=== PATIENT | female | born 1945 | race Caucasian/White ===

== ENCOUNTER 2016-04-27 14:59 | Inpatient (IN) | payer MEDICARE, OTHER ==
[~2016-04-27] VITALS: Ht 170.2 cm; Wt 81.9 kg
[~2016-04-27 14:59] MED LIST: AMLO5TAB2 PO; LIT450 PO; OMEP40CA36 PO; QUET100T69 PO
[2016-04-27 15:26] VITALS: BP 171/82; PULSE 90; RESP 16; O2SAT 97
[2016-04-27 15:55] LABS: BASOPHILS % (AUTO) 0.3 % (0-3); EOSINOPHILS % (AUTO) 1.3 % (0-5); MONOCYTES % (AUTO) 7.6 % (4-12); Mean Corpuscular Hemoglobin 30.6 pg (27.0-35.0); Mean Corpuscular Volume 97.1 fL (81-100); NEUTROPHILS % (AUTO) 72.2 % (40-74); Platelet Count 250 bil/L (150-400)
--- NOTE | 2016-04-27 16:19 | ED.REPORT ---
HPI-Psychiatric Illness Date of Service Apr 27, 2016 ED Provider: Dl Hines MD History of Present Illness: Chart says here for carlton A 71 year old female with a medical history including hypertension, asthma, GERD , bipolar disorder, anxiety, depression, and tardive dyskinesia s/p multiple psychiatric admits presents to the ED accompanied by her with carlton onset four days ago. The patient began speaking to herself and speaking to other people who were not present. These symptoms have worsened since onset. The patient's denies suicide attempts, self-harm, or insomnia, although he is unsure if the patient slept last night. The patient was in the hospital two months ago with similar symptoms. She was placed on Seroquel (150mg) and Belwood, with relief of symptoms until now. Nursing Notes Stated Complaint: STRANGE BEHAVIOR,POSSIBLE UTI Chief Complaint: Psychiatric Complaint Nursing Notes Reviewed: Yes (Cinematique reconciled) Allergies: Coded Allergies: chlorpromazine (Verified Allergy, Severe, 02/07/16) codeine (Verified Allergy, Severe, 02/07/16) olanzapine (Verified Allergy, Severe, 02/07/16) sulindac (Verified Allergy, Severe, Rash, 02/07/16) Scheduled Amlodipine (Amlodipine) 5 Mg Tablet 2.5 MG PO DAILY Belwood Carbonate (Belwood Carbonate XR) 450 Mg Tablet.er 450 MG PO HS Omeprazole (Omeprazole) 40 Mg Capsule.dr 40 MG PO QAM Quetiapine Fumarate (Quetiapine Fumarate) 100 Mg Tablet 150 MG PO HS General Time Seen by MD: 16:12 Chief Complaint Manic Hx Obtained From: Spouse Unable to Obtain Hx: Patient condition, Mental status Arrived By: Walk-in Onset Occurred: 4 days ago Symptom Duration: Since onset Progression Since Onset: Gradually worsening Associated with: Denies: Fever, Illicit drug use Pertinent Negative: Relieved by nothing Related History: Reports: Anxiety, Bipolar disorder, Depression, Prior suicide attempt(s) Immunizations: Tetanus up to date Recent Healthcare: No recent doctor visit Similar Sx Previous: Yes Risk-Psychiatric Illness Suicide Risk Stratification RF Statements: Risk factors reviewed Past Medical History Past Medical History Notes: last Admit 01/2016 for [facility] on SHAYAN Past Medical History Bipolar disorder - on Belwood Anxiety Depression Arthritis Tardive dyskinesia. Previous suicide attempts by overdose Reports: Asthma, GERD, Hypertension Past Surgical History Reports: Appendectomy Family History STORY: She reports family psychiatric history of mother with depression who also possibly suicided. No family history of substance abuse or dependence. Family medical history significant for father with stroke and sister with Alzheimer's. Smoking History Never Smoker Social History Alcohol Use: Denies alcohol use Drug Use: Denies drug use Other Social History: Good social support, , Local resident Ambulatory Status Independent Review of Systems Unable to Obtain ROS Patient condition, Uncooperative, Mental status Physical Exam Physical Exam Notes: Initial Vital Signs Vital Signs (First) Date Time Temp Pulse Resp B/P Pulse Ox O2 Delivery O2 Flow Rate FiO2 04/27/16 15:26 36.3 90 16 171/82 97 Room Air Initial VS: Reviewed, Vital signs abnormal (HTN) Head / Eyes: Atraumatic, Normocephalic ENT: Conjunctiva normal, No scleral icterus Respiratory: Breath sounds normal, Clear to auscultation, No respiratory distress Cardiovascular: Regular rate & rhythm, Heart sounds normal Skin: Warm, Dry General/Constitutional: Awake Behavior: Positive: Uncooperative Thin Patient is talking to the collado on initial interview She is speaking rapidly but in unintelligible sentences and phrases She resists physical exam Abnormal Thinking / Perception: Positive: Delusions - paranoid, Insight abnormal (None), Judgment abnormal (None ) Wrist / Hand: Neurologic intact, Vascular intact Trauma / Burn / Environmental: Positive: Ecchymosis (Left hand) Interpretation & Diagnostics URINE DRUG SCREEN: Negative Lab Results Interpretation Result Diagram: 04/27/16 1544 04/27/16 1544 Test 04/27/16 15:44 04/27/16 18:26 White Blood Count 11.5th/mm3 (3.8-10.1) Red Blood Count 4.15mil/mm3 (3.90-5.20) Hemoglobin 12.7g/dL (12.0-15.6) Hematocrit 40.3% (35.0-46.0) Mean Corpuscular Volume 97.1fL (81-100) Mean Corpuscular Hemoglobin 30.6pg (27.0-35.0) Mean Corpuscular Hemoglobin Concent 31.5% (32.0-37.0) Red Cell Distribution Width 15.3% (12.3-15.4) Platelet Count 250bil/L (150-400) Neutrophils (%) (Auto) 72.2% (40-74) Lymphocytes (%) (Auto) 18.4% (14-46) Monocytes (%) (Auto) 7.6% (4-12) Eosinophils (%) (Auto) 1.3% (0-5) Basophils (%) (Auto) 0.3% (0-3) Sodium Level 139mEq/L (134-144) Potassium Level 4.3mEq/L (3.5-5.2) Chloride Level 103mEq/L (97-108) Carbon Dioxide Level 17mmol/L (18-29) Blood Urea Nitrogen 29mg/dL (8-27) Creatinine 1.14mg/dL (0.57-1.00) Estimat Glomerular Filtration Rate 67mL/min (>59) Glucose Level 119mg/dL (60-99) Lactic Acid Level 1.5mmol/L (0.4-2.0) Calcium Level 9.5mg/dL (8.5-10.1) Total Bilirubin 0.3mg/dL (0.0-1.2) Aspartate Amino Transf (AST/SGOT) 19U/L (0-50) Alanine Aminotransferase (ALT/SGPT) 13U/L (0-32) Alkaline Phosphatase 82U/L (25-165) Total Protein 8.0g/dL (6.4-8.4) Albumin 4.8g/dL (3.4-5.0) Thyroid Stimulating Hormone (TSH) 3.090uIU/mL (0.450-4.500) Hold Yen Top Tube Received (Received) Belwood Level 0.8mEq/L (0.5-1.5) Alcohol, Quantitative < 10mg/dL (0-10) Urine Color Yellow (YELLOW) Urine Appearance Hazy (CLEAR,HAZY) Urine pH 1.010 (5.0-8.0) Urine Specific [place] 6.0 (1.003-1.035) Urine Protein Negativemg/dL (NEG,TRACE) Urine Glucose (UA) Negativemg/dL (NEGATIVE) Urine Ketones Tracemg/dL (NEGATIVE) Urine Occult Blood Trace (NEGATIVE) Urine Nitrite Negative (NEGATIVE) Urine Bilirubin Negative (NEGATIVE) Urine Urobilinogen Normalmg/dL (NORMAL) Urine Leukocyte Esterase Large (NEGATIVE) Urine RBC 0-2/hpf (0-2) Urine WBC >50/hpf (0-5) Urine Epithelial Cells Few/hpf (NONE-MOD) Urine Crystals None seen (NONE SEEN) Urine Bacteria Many/hpf (NONE-FEW) Urine Hyaline Casts None/lpf (NONE) Urine Granular Casts None seen (NONE SEEN) Urine Waxy Casts None seen (NONE SEEN) Urine Red Blood Cell Casts None seen (NONE SEEN) Urine White Blood Cell Casts None seen (NONE SEEN) Urine Mucus None seen (None Seen) Urine Trichomonas None seen (NONE SEEN) Urine Yeast None (NONE SEEN) Urinalysis Comment None Urine Culture Reflexed Indicated Lab Results Interpretation: CBC positive leukocytosis CMP mildly low CO2 UA positive for markers of infection, culture pending Belwood normal Re-Eval/Medical Decision Med Decision/Clinical Course This is a 71-year-old female presents to the emergency department brought by and the with a complaint of me. Patient's long history of bipolar illness with multiple psychiatric hospitalizations, most recently in January where she was discharged on lithium and Seroquel. According to the should be doing well until about 4 days ago she started speaking to herself, then developed increasing racing thoughts, then insomnia woke up this morning to find all the lights were on it appeared she had slept at all last night, she was making these sense, had rapid continuous speech and appeared manic. He states is the same symptoms and presentation she has had with each of her episodes of carlton. He tried to convince her to come to the department she refused, he tried calling her psychiatrist to try to convince the patient is unsuccessful, and he ultimately had a call the 's office for assistance in getting to the emergency department. The patient refuses to cooperate, she talks to the wall prep prior speech and appears gravely disabled overall. She has no visible signs of trauma service and bruising to the left hand, she has no other findings. She is not febrile, she does not appear toxic, she is energetic, rapid, pressured speech. She has no insight, no judgment, but will not answer questions about suicidality homicidality-all the indicates that several really been an issue. Workup was notable for UTI, the patient did receive an IM dose of ceftriaxone - the patient does not have findings clinically of the UTI, all of her symptoms and finding strongly argue that the fundamental issue remains bipolar carlton. indicates that he has her medications locked up and help dispense his she has reportedly been compliant. Belwood level demonstrates no toxicity. The patient was able to eat and drink, but not cooperating Deann anyway. I tried giving an oral antibiotic-she refused to received an IM dose of ceftriaxone. I am not finding indication the patient is medical hospitalization and no evidence of clinical sepsis. Patient's been seen by the DCR is being dettained (SHAYAN'd) for grave disability. In the patient's recently been admitted to the [facility], patient's no other major medical issues, again while there is a UTI, there are not findings indicate dale sepsis or if that is truly the precipitating cause. The patient' s are received parenteral dose of antibiotics here, but normally be a candidate for oral antibiotics if she would cooperate. The fundamental issue presenting today is the carlton, her presentation is identical to previous episodes of carlton. Therefore, although she is 71-she is a reasonable candidate for admission to the [facility] in this setting. Moreover, I think the patient is best served in the [facility] setting this type of presentation, red and attempted management on the floor for primary psychiatric, with an incidental UTI) I attempted to give the patient's evening dose of lithium and Seroquel, but again the patient was not cooperative - after consultation with pharmacy given the patient's reported allergy to olanzapine, the patient received a dose of Geodon which records indicate has beem tolerated previously. I do recommend a single dose of ceftriaxone IM once a day for the next 2 days to complete treatment for this urinary tract infection,(or if the patient improves and cooperates with oral medications a 5 day course of trimethoprim sulfa twice a day could also be used Source of Hx: Old records Re-Evaluation/Progress : Time of Eval: 16:49 Patient Status: Condition unchanged Re-Evaluation/Progress Note: Discussed with patient's lab results, diagnosis, and plan for admit. Patient's agrees with plan for care and all questions were addressed. Consultation : Referral / Consult Name: Nicky Mays MOUNA Consulted With: Hospitalist Public Interviewer: Agrees with eval, Agrees with plan, Accepts admit Note: DCR arranged admission. Differential Diagnosis: Positive: Mood disorder, Negative: Alcohol abuse, Homicidal, Polysubstance abuse, Schizophrenia, Substance abuse, Suicidal Counseled Regarding: Diagnosis, Lab results, Need for admission Discharge & Departure Impression: Primary Impression: Bipolar disorder Active/Remission status: currently active Current bipolar episode type: manic Current episode severity: severe Psychotic features: with psychotic features Qualified Code: F31.2 - Bipolar disorder, current episode manic severe with psychotic features Additional Impressions: Psychosis Psychosis type: unspecified psychosis type Qualified Code: F29 - Unspecified psychosis not due to a substance or known physiological condition UTI (urinary tract infection) Urinary tract infection type: acute cystitis Hematuria presence: without hematuria Qualified Code: N30.00 - Acute cystitis without hematuria Disposition: ADMITTED TO HOSPITAL Discharge Condition All VS Reviewed: Yes Condition: Improved Referrals: Jose Antonio Peñaloza MD (PCP) Oj Vasquez MD (Family) Lucie Attestation Portions of this note were transcribed by Charley Lu. I, Dr. Hines, personally performed the history, physical exam, and medical decision-making; I reviewed and confirmed the accuracy of the information in the transcribed note. Signed by: Lucie Balbuena, 04/27/2016, 23:50 copies to: Jose Antonio Peñaloza MD; Oj Vasquez MD, Matthew F MD Apr 27, 2016 16:19 CHARLEY LU Apr 27, 2016 16:48
[2016-04-27 18:49] LABS: APPEARANCE,URINE HAZY (CLEAR,HAZY); COLOR,URINE YELLOW (YELLOW); OCCULT BLOOD,URINE TRACE (NEGATIVE); UROBILINOGEN,URINE NORMAL (NORMAL)
[2016-04-27 19:05] VITALS: BP 177/92; PULSE 88; O2SAT 99
[2016-04-27] MEDS ORDERED: levoFLOXacin 500 mg Tablet PO ONE (19:15)
[2016-04-27] MEDS ORDERED: levoFLOXacin 250 mg Tablet PO ONE (19:45)
[2016-04-27] MEDS ORDERED: cefTRIAXone Inj 1,000 MG, Lidocaine PF 1% Inj 2.1 ML in Syringe 0 EACH IM ONE (20:10)
[2016-04-27] MEDS ORDERED: Ziprasidone 20 mg/mL Inj IM ONE (22:55)
[2016-04-27 23:32] VITALS: BP 138/66; PULSE 61; O2SAT 98
[2016-04-27 23:36] VITALS: BP 138/66; PULSE 61; RESP 16; O2SAT 98
[2016-04-28] MEDS ORDERED: hydrOXYzine Pamoate 25 mg Capsule PO PRN (02:20)
[2016-04-28] MEDS ORDERED: Alum-Mag Hydrox-Simeth 30 mL Suspension PO PRN (02:20)
[2016-04-28] MEDS ORDERED: Magnesium Hydroxide 10 mL Oral Concentration PO PRN (02:20)
[2016-04-28] MEDS ORDERED: Benzocaine-Menthol Lozenge 2/Pkg PO PRN (02:20)
[2016-04-28] MEDS ORDERED: LORazepam 1 mg Tablet PO PRN (02:20)
[2016-04-28] MEDS ORDERED: cefTRIAXone Inj 1,000 MG, Lidocaine PF 1% Inj 2.1 ML in Syringe 0 EACH IM ONE (15:30)
[2016-04-28] MEDS: Pantoprazole 40 mg ER24 Tablet PO SCH (16:10)
--- NOTE | 2016-04-28 23:39 | HP ---
[address] [address] HISTORY AND PHYSICAL PATIENT: BREANNA CURRAN : 1945 MR#: [id number] ADMIT: 04/28/2016 JOB ID: [id number] IDENTIFYING DATA: The patient is a 71-year-old female with a diagnosis of bipolar disorder who was brought to the emergency department by the pump assembler, accompanied by her , with a history of four days of worsening mental state and apparent manic episode. The patient was subsequently detained by the [facility]. 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...you have the wrong Breanna Curran, I'm Breanna Curran, not Breanna Curran at the [place]." HISTORY OF PRESENT ILLNESS: The patient had been admitted at the [facility] from February 06 through February 21, 2016, and was treated with Eskalith 450 mg at bedtime and quetiapine 150 mg at bedtime with good resolution of symptoms. According to the patient's , she had been doing well until four days ago when she began speaking to herself and developed increasing racing thoughts, and then insomnia, and woke up the morning of admission to find all the lights on and the patient appeared to have not slept all night. At that point, she was making no sense, had rapid pressured speech, and appeared manic. The patient's reported that these symptoms were consistent with her prior episodes of carlton. The patient's had tried to convince her to come to the emergency department, but she refused. He likewise had tried using the psychiatrist, but this was unsuccessful, and he ultimately had to call the [facility]'s office for assistance in getting the patient to the emergency department. When seen in the emergency department, she refused to cooperate, talking to the wall with rapid pressured speech. She was noted to have some bruising of her left hand, but no other findings. The patient did appear to have a UTI, but does not demonstrate clinical symptoms of UTI. She did receive an IM dose of ceftriaxone, but refused oral medication. The patient's has been providing her medication and keeps medication in a lock box. The patient's lithium level was 0.8 on assessment in the emergency department. 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 at [facility], and continued to report that we had the wrong Breanna Curran. She was unsure whether she would cooperate with medication for her urinary tract infection. She was unable to provide any other details outside of noted above. PAST PSYCHIATRIC HISTORY: According to previous chart notes, the patient's first psychiatric treatment was following her second at the age of 21 when she developed her first episode of depression which lasted for approximately one year. She was treated with ECT and had multiple manic or psychotic episodes requiring hospitalization. She reported 30-40 hospitalizations in the past. She did not require rehospitalization for approximately 20 years and her next hospitalization was in 1997. She has historically been stabilized on lithium. She was admitted to [facility] in 2003 and has had multiple inpatient psychiatric hospitalizations since then, and her last hospitalization at [facility] were in October 2015, and as noted above, January 2016. Outpatient she is followed by Dr. Vasquez. She had previously taken risperidone and lithium, but had apparently developed toxicity to risperidone and her tardive dyskinesia was becoming more prominent. Upon switching to quetiapine, her symptoms did eventually marlys and her tardive symptoms appear significantly improved. PAST MEDICATIONS: Have included Lamictal, Zyprexa and Seroquel. FAMILY HISTORY: The patient has a family psychiatric history of a mother with depression and who also possibly suicided. There is no family history of substance use or dependence. Family medical history significant for father with a stroke and a sister with Alzheimer's disease. SUBSTANCE USE HISTORY: The patient reports last alcohol approximately one year ago and she typically drinks a glass of wine, but typically does not use it due to concerns of medication interaction. Her last drink was on her birthday, on April 20, 2017, and had one glass of [place]. She denied the use of amphetamines, cocaine, heroin, hallucinogens, inhalants or IV drug abuse. She denies any history of inpatient or outpatient drug and alcohol treatment. SOCIAL HISTORY: The patient was born in [place]. She has one younger sister and two older sisters. Her oldest sister is . She is a high school graduate and went to [employer] and has a diploma in nursing. 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 She reports having founded the [employer] through [facility]. The patient has never been in the . She is currently and has been for 52 years, and has two children age 49 and 47. She currently receives SSI of 1043 dollars per month. She lives in a home with her in [place]. She reports her and sons are her primary supports. She denies a history of physical, sexual or emotional abuse. She denies any legal history. PAST MEDICAL HISTORY: Significant for arthritis, tardive dyskinesia, asthma, GERD, hypertension. The patient denies a history of traumatic brain injury or seizure. There is also a history of appendectomy. ALLERGIES: 1. The patient reports CODEINE allergy with itching. She also has: 2. CHLORPROMAZINE. 3. OLANZAPINE. 4. SULINDAC. Listed as allergies. PHYSICAL EXAMINATION: Remarkable for bruising as noted above. Blood pressure 171/82, pulse 90, respiratory rate of 16, temperature 36.8, pulse oximetry 97%. She was noted to be speaking to the collado. LABORATORY STUDIES: Within normal limits except for a CBC with a white blood cell count of 11.5 and an MCHC of 31.5. Chemistry panel within normal limits except for carbon dioxide of 17, BUN of 29, creatinine 1.14, and glucose 119. TSH 3.09. Happy level 0.8 at 3:44 and alcohol less than 10. Urine was significant for a large amount of leukocyte esterase, 0-2 RBCs, greater than 50 white blood cells, few epithelial cells, many urine bacteria, with culture indicated. MENTAL STATUS EXAMINATION: Appearance: The patient is adequately dressed and groomed, although she is wearing an outdoor coat while indoors. Behavior: The patient appears somewhat confused, but does go to the interview room and demonstrates good eye contact without significant psychomotor agitation or retardation. Mood is "I don't belong here." Affect is flat. Speech: Soft, somewhat monotone with repetitive answers, and overall poverty of speech. Some latency is noted. Content of thought: She denies suicidal or homicidal ideation. She denies auditory or visual hallucinations. Thought processes: Demonstrates poverty of speech with apparent thought blocking. Insight: Poor. Judgment: Poor. Memory: Unable to assess due to cognitive impairments and perseveration. Concentration: Unable to assess as noted above. The patient was oriented to April 29, 2016, Wednesday. The patient reported that this was Harjinder Miller and that she had been in the hospital approximately a week. She adds "[facility] Sensorium: The patient appears to have cognitive impairment possibly secondary to urinary tract infection. IMPRESSION: The patient is a 71-year-old female who has been medication adherent, but has developed altered mental status over the last few days. The urinalysis is significant for urinary tract infection which could explain the patient's abnormal mental status. The patient also could have a progressing neurocognitive disorder. Given the patient's family history of Alzheimer's disease, when she is more stable a further mental status examination should be accomplished. PROVISIONAL DIAGNOSES: AXIS I: 1. Bipolar disorder, current episode, mixed with psychotic features. 2. Major neurocognitive disorder, unspecified, with dementia versus pseudodementia. AXIS II: Deferred. AXIS III: See past medical history with current urinary tract infection. AXIS IV: Unknown. AXIS V: Global Assessment of Functioning 20. PLAN: The patient will be restarted on lithium/Eskalith 450 mg at bedtime and quetiapine 150 mg at bedtime. She will also receive Rocephin 1000 mg IM x1 now and an additional dose tomorrow, unless she is cooperative, and then a five course of Bactrim and sulfa will be initiated. The patient also receives lorazepam as needed for anxiety and zolpidem for insomnia. The patient is currently denying suicidality or homicidality and does not appear to need a one-to-one. The treatment team will see her on a daily basis to assess for symptoms, side effects and response to treatment. It is unclear whether she will need an additional 10-14 days of treatment as previous, and this will be assessed over time. OLEG
[2016-04-29] MEDS: Pantoprazole 40 mg ER24 Tablet PO SCH (07:31)
[2016-04-29 08:40] LABS: BASOPHILS % (AUTO) 0.4 % (0-3); EOSINOPHILS % (AUTO) 1.9 % (0-5); MONOCYTES % (AUTO) 10.1 % (4-12); Mean Corpuscular Hemoglobin 30.5 pg (27.0-35.0); Mean Corpuscular Volume 97.7 fL (81-100); NEUTROPHILS % (AUTO) 63.7 % (40-74); Platelet Count 225 bil/L (150-400)
[2016-04-29 10:39] VITALS: BP 153/82; PULSE 90; RESP 16
[2016-04-29] MEDS ORDERED: cefTRIAXone Inj 1,000 MG, Lidocaine PF 1% Inj 2.1 ML in Syringe 0 EACH IM ONE (16:00)
--- NOTE | 2016-04-29 17:16 | PCM.PNPSY ---
Subjective Date of Service Apr 29, 2016 Subjective The patient was very angry and irritable this morning and was fixated on relatives who worked for the [employer] department. She would not engage with the health informatics advisor assigned to her and stated that she was not her health informatics advisor. The patient would only answer questions in a limited fashion from this publications writer. She reported having a tremor but no other side effects. [place] level was 0.7 today. Efforts at trying to explain the role of urinary tract infection and need for treatment were fruitless. Sleep: 8 hours Appetite: Good Suicidal and homicidal ideation: Denies Auditory hallucinations/Visual hallucinations: Denies Other Psychotic Symptoms: Disorganized and delusional. Anxiety/Depression: Unable to assess. Current Medications Current Medications Acetaminophen 650 mg 650 mg Q4H PRN PO Last administered on 04/28/16 21:04; Admin Dose 650 MG; Start 04/28/16 at 02:20 Amlodipine Besylate 2.5 mg DAILY PO Last administered on 04/29/16 08:08; Admin Dose 2.5 MG; Start 04/28/16 at 15:00 Ceftriaxone Sodium/Lidocaine HCl/Syringe 2.1 ml @ 126 mls/hr ONCE ONCE IM Last administered on 04/27/16 20:42; Admin Dose 126 MLS/HR; Start 04/27/16 at 20: 10; Stop 04/27/16 at 20:11; Status DC Ceftriaxone Sodium/Lidocaine HCl/Syringe 2.1 ml @ 126 mls/hr ONCE ONCE IM Last administered on 04/28/16 16:16; Admin Dose 126 MLS/HR; Start 04/28/16 at 15: 30; Stop 04/28/16 at 15:31; Status DC [place] Carbonate 450 mg HS PO Last administered on 04/28/16 21:01; Admin Dose 450 MG; Start 04/28/16 at 21:00 Pantoprazole 40 mg 0630 PO Last administered on 04/29/16 07:31; Admin Dose 40 MG ; Start 04/28/16 at 15:30 Quetiapine Fumarate 150 mg HS PO Last administered on 04/28/16 21:02; Admin Dose 150 MG; Start 04/28/16 at 21:00 Ziprasidone 10 mg ONCE ONCE IM Last administered on 04/27/16 22:10; Admin Dose 10 MG; Start 04/27/16 at 22:55; Stop 04/27/16 at 22:56; Status DC Mental Status Exam Vital Signs Vital Signs Date Time Temp Pulse Resp B/P Pulse Ox O2 Delivery O2 Flow Rate FiO2 04/29/16 10:39 36.7 90 16 153/82 Appearance: Unkept Attitude: Uncooperative, Hostile/Threatening Behavior: Distractible Affect: Labile Mood: Irritable Thought Process/Associations: Tangential, Circumstantial Speech Production: Abundant Speech Rate: Pressured Speech Articulation: Normal Thought Content: Somatic preoccupation, Suspicious, Perseveration Danger to Self/Suicidal Ideati: None Danger to Others: None Delusions: Paranoid (Endorses) Hallucinations: Auditory (Denies), Visual (Denies) Consciousness: Alert Orientation: Person, Place Memory: Untestable Estimate Intellectual Function: Unable to assess Attention/Concentration & Cogn: Unable to assess Insight: None Judgement: Poor Result Diagram: 04/29/16 0836 04/29/16 0836 Mental Health Plan The patient is a 71-year-old female who has been medication adherent, but has developed altered mental status over the last few days. The urinalysis is significant for urinary tract infection which could explain the patient's abnormal mental status. The patient also could have a progressing neurocognitive disorder. Given the patient's family history of Alzheimer's disease, when she is more stable a further mental status examination should be accomplished. For the time being, she does not appear to be lithium toxic and we will continue with treatment of the presumptive urinary tract infection. [place] AXIS I: 1. Bipolar disorder, current episode, mixed with psychotic features. 2. Major neurocognitive disorder, unspecified, with dementia versus pseudodementia. AXIS II: Deferred. AXIS III: See past medical history with current urinary tract infection. AXIS IV: Unknown. AXIS V: Global Assessment of Functioning 20. Treatments 1. The patient is admitted to the inpatient unit and will be provided a safe and secure environment. 2. The patient is denying current active suicidality and is not in need of a one-to-one at this time. 3. The patient is encouraged to participate with group and milieu activities. 4. The patient will be seen by the treatment team on a daily basis to assess symptoms, side effects and response to treatment. 5. The patient will be continued on lithium/Eskalith 450 mg at bedtime and quetiapine 150 mg at bedtime. 6. Rocephin 1000 mg IM x1 now 7. Lorazepam for anxiety and zolpidem for insomnia. 8. The patient may need an increase in her antipsychotic if her symptoms do not improve. 9. Anticipated length of stay is 7-10 days. Lester Cruz MD Apr 29, 2016 17:16
[2016-04-30] MEDS: Pantoprazole 40 mg ER24 Tablet PO SCH (07:34)
[2016-04-30 09:15] VITALS: BP 146/82; PULSE 72; RESP 17
--- NOTE | 2016-04-30 22:02 | PCM.PNPSY ---
Subjective Date of Service Apr 30, 2016 Subjective The patient remains angry and focused on need for discharge as her family is flying in to [place]. She was again focused on themes of Michael Curran, [facility] [place], her career as a nurse. She angrily terminated the interview stating, "I have eyeballs! I am a Religious!" Sleep: 4 hours Appetite: good Suicidal and homicidal ideation: denies Auditory hallucinations: none reported Visual hallucinations: none reported Other Psychotic Symptoms: delusions as above Anxiety: unable to assess Depression: unable to assess Current Medications Current Medications Ceftriaxone Sodium/Lidocaine HCl/Syringe 2.1 ml @ 126 mls/hr ONCE ONCE IM Last administered on 04/29/16 21:10; Admin Dose 126 MLS/HR; Start 04/29/16 at 16: 00; Stop 04/29/16 at 16:01; Status DC Hydroxyzine Pamoate 50 mg STK-MED ONCE .ROUTE Last administered on 04/29/16 22: 04; Admin Dose 50 MG; Start 04/29/16 at 21:56; Stop 04/29/16 at 21:57; Status DC Hydroxyzine Pamoate 50 mg TID PRN PO Last administered on 04/30/16 09:46; Admin Dose 50 MG; Start 04/29/16 at 22:35 [place] Carbonate 450 mg HS PO Last administered on 04/29/16 21:10; Admin Dose 450 MG; Start 04/28/16 at 21:00 Quetiapine Fumarate 50 mg STK-MED ONCE .ROUTE Last administered on 04/29/16 22: 07; Admin Dose 50 MG; Start 04/29/16 at 22:03; Stop 04/29/16 at 22:04; Status DC Quetiapine Fumarate 50 mg TID PRN PO Last administered on 04/30/16 09:47; Admin Dose 50 MG; Start 04/29/16 at 22:35 Quetiapine Fumarate 150 mg 150 mg HS PO Last administered on 04/29/16 21:10; Admin Dose 150 MG; Start 04/28/16 at 21:00; Stop 04/30/16 at 18:03; Status DC Mental Status Exam Appearance: Unkept Attitude: Uncooperative, Hostile/Threatening Behavior: Distractible Affect: Labile Mood: Irritable Thought Process/Associations: Tangential, Circumstantial Speech Production: Abundant Speech Rate: Pressured Speech Articulation: Normal Thought Content: Somatic preoccupation, Suspicious, Perseveration Danger to Self/Suicidal Ideati: None Danger to Others: None Delusions: Paranoid (Endorses) Consciousness: Alert Orientation: Person, Place Memory: Untestable Estimate Intellectual Function: Unable to assess Attention/Concentration & Cogn: Unable to assess Insight: None Judgement: Poor Result Diagram: 04/29/1636 04/29/16835 Mental Health Plan The patient is a 71-year-old female who has been medication adherent, but has developed altered mental status over the last few days. The urinalysis is significant for urinary tract infection which could explain the patient's abnormal mental status. The patient also could have a progressing neurocognitive disorder. Given the patient's family history of Alzheimer's disease, when she is more stable a further mental status examination should be accomplished. For the time being, she does not appear to be lithium toxic. She has completed treatment of the presumptive urinary tract infection and remains psychotic. [place] AXIS I: 1. Bipolar disorder, current episode, mixed with psychotic features. 2. Major neurocognitive disorder, unspecified, with dementia versus pseudodementia. AXIS II: Deferred. AXIS III: See past medical history with current urinary tract infection. AXIS IV: Unknown. AXIS V: Global Assessment of Functioning 20. Treatments 1. The patient is admitted to the inpatient unit and will be provided a safe and secure environment. 2. The patient is denying current active suicidality and is not in need of a one-to-one at this time. 3. The patient is encouraged to participate with group and milieu activities. 4. The patient will be seen by the treatment team on a daily basis to assess symptoms, side effects and response to treatment. 5. The patient will be continued on lithium/Eskalith 450 mg at bedtime. 6. Increase quetiapine to 200mg at bedtime and 100mg daily due to persistent psychosis. 7. Lorazepam for anxiety and zolpidem for insomnia. 8. Anticipated length of stay is 10-14 days. Lester Cruz MD Apr 30, 2016 19:25
[2016-05-01] MEDS: Pantoprazole 40 mg ER24 Tablet PO SCH (07:58)
[2016-05-01 10:22] VITALS: BP 146/77; PULSE 70; RESP 16
--- NOTE | 2016-05-01 15:15 | PCM.PNPSY ---
Subjective Date of Service May 01, 2016 Subjective The patient declined medications this morning she had court. Her presentation today is nearly identical to yesterday but she seems less angry and anxious. The patient remains angry and focused on need for discharge as her family is flying in to [place] [employer]. She was again focused on themes of Michael Curran, [employer] her career as a nurse. She reported that her can be reached at [phone]. Sleep: 7 hours Appetite: good Suicidal and homicidal ideation: denies Auditory hallucinations: none reported Visual hallucinations: none reported Other Psychotic Symptoms: delusions as above Anxiety: unable to assess Depression: unable to assess Current Medications Current Medications Ceftriaxone Sodium/Lidocaine HCl/Syringe 2.1 ml @ 126 mls/hr ONCE ONCE IM Last administered on 04/29/16 21:10; Admin Dose 126 MLS/HR; Start 04/29/16 at 16: 00; Stop 04/29/16 at 16:01; Status DC Hydroxyzine Pamoate 50 mg STK-MED ONCE .ROUTE Last administered on 04/29/16 22: 04; Admin Dose 50 MG; Start 04/29/16 at 21:56; Stop 04/29/16 at 21:57; Status DC Hydroxyzine Pamoate 50 mg TID PRN PO Last administered on 04/30/16 09:46; Admin Dose 50 MG; Start 04/29/16 at 22:35 Quetiapine Fumarate 50 mg STK-MED ONCE .ROUTE Last administered on 04/29/16 22: 07; Admin Dose 50 MG; Start 04/29/16 at 22:03; Stop 04/29/16 at 22:04; Status DC Quetiapine Fumarate 50 mg TID PRN PO Last administered on 04/30/16 09:47; Admin Dose 50 MG; Start 04/29/16 at 22:35 Quetiapine Fumarate 100 mg DAILY PO Last administered on 05/01/16 10:46; Admin Dose 100 MG; Start 05/01/16 at 08:30 Quetiapine Fumarate 200 mg HS PO Last administered on 04/30/16 21:05; Admin Dose 200 MG; Start 04/30/16 at 21:00 Mental Status Exam Vital Signs Vital Signs Date Time Temp Pulse Resp B/P Pulse Ox O2 Delivery O2 Flow Rate FiO2 05/01/16 10:22 36.3 70 16 146/77 Appearance: Unkept Attitude: Guarded, Uncooperative Behavior: Distractible Affect: Labile Mood: Irritable Thought Process/Associations: Tangential, Circumstantial Speech Production: Abundant Speech Rate: Pressured Speech Articulation: Normal Thought Content: Somatic preoccupation, Suspicious, Perseveration Danger to Self/Suicidal Ideati: None Danger to Others: None Delusions: Paranoid (Endorses) Consciousness: Alert Orientation: Person, Place Memory: Untestable Estimate Intellectual Function: Unable to assess Attention/Concentration & Cogn: Unable to assess Insight: None Judgement: Poor Result Diagram: 04/29/1636 04/29/16835 Mental Health Plan The patient is a 71-year-old female who has been medication adherent, but has developed altered mental status over the last few days. The urinalysis is significant for urinary tract infection which could explain the patient's abnormal mental status. The patient also could have a progressing neurocognitive disorder. Given the patient's family history of Alzheimer's disease, when she is more stable a further mental status examination should be accomplished. For the time being, she does not appear to be lithium toxic. She has completed treatment of the presumptive urinary tract infection and remains psychotic. The patient responded with improved sleep with the increase in quetiapine declined morning dose. [place] AXIS I: 1. Bipolar disorder, current episode, mixed with psychotic features. 2. Major neurocognitive disorder, unspecified, with dementia versus pseudodementia. AXIS II: Deferred. AXIS III: See past medical history with current urinary tract infection. AXIS IV: Unknown. AXIS V: Global Assessment of Functioning 20. Treatments 1. The patient is admitted to the inpatient unit and will be provided a safe and secure environment. 2. The patient is denying current active suicidality and is not in need of a one-to-one at this time. 3. The patient is encouraged to participate with group and milieu activities. 4. The patient will be seen by the treatment team on a daily basis to assess symptoms, side effects and response to treatment. 5. The patient will be continued on lithium/Eskalith 450 mg at bedtime. 6. Increase quetiapine to 200mg at bedtime and 100mg daily due to persistent psychosis. 7. Lorazepam for anxiety and zolpidem for insomnia. 8. Recheck clean-catch UA. 9. Anticipated length of stay is 10-14 days. Lester Curz MD May 01, 2016 15:15
[2016-05-02 00:46] LABS: APPEARANCE,URINE CLEAR (CLEAR,HAZY); COLOR,URINE YELLOW (YELLOW)
[2016-05-02 00:47] LABS: OCCULT BLOOD,URINE TRACE (NEGATIVE)
[2016-05-02 00:48] LABS: UROBILINOGEN,URINE NORMAL (NORMAL)
[2016-05-02] MEDS: Pantoprazole 40 mg ER24 Tablet PO SCH (07:32)
[2016-05-02 08:22] VITALS: BP 141/66; PULSE 89; RESP 16
--- NOTE | 2016-05-02 18:18 | PCM.PNPSY ---
Subjective Date of Service May 02, 2016 Subjective The patient is still fixated on family members returning from the . She was more pleasant today but indicated that she was having direct communication with Dr. Borden in her right ear. She was again focused on themes of [place] Curran [facility], her career as a nurse. She was focused for a significant portion of the interview on her previous cataract surgeries. She stated that Deann, the nurse, helped her with her shower last night. Sleep: 3+ hours Appetite: good Suicidal and homicidal ideation: denies Auditory hallucinations: As above Visual hallucinations: Denied Other Psychotic Symptoms: delusions as above Anxiety: Denies Depression: Denies Current Medications Current Medications Quetiapine Fumarate 100 mg DAILY PO Last administered on 05/02/16 07:32; Admin Dose 100 MG; Start 05/01/16 at 08:30 Quetiapine Fumarate 200 mg HS PO Last administered on 05/01/16 20:32; Admin Dose 200 MG; Start 04/30/16 at 21:00 Mental Status Exam Appearance: Unkept Attitude: Cooperative Behavior: Distractible Affect: Labile Mood: Euphoric Thought Process/Associations: Tangential, Circumstantial Speech Production: Abundant Speech Rate: Pressured Speech Articulation: Normal Thought Content: Somatic preoccupation, Suspicious, Perseveration Danger to Self/Suicidal Ideati: None Danger to Others: None Delusions: Paranoid (Endorses) Consciousness: Alert Orientation: Person, Place Memory: Short Term Memory (Impaired) Estimate Intellectual Function: Average Basis for IQ estimate: Educational history, Employment history Attention/Concentration & Cogn: Impaired Insight: None Judgement: Poor Result Diagram: 04/29/16 0836 04/29/16 0836 Mental Health Plan The patient is a 71-year-old female who has been medication adherent, but has developed altered mental status over the last few days. The urinalysis is significant for urinary tract infection which could explain the patient's abnormal mental status. The patient also could have a progressing neurocognitive disorder. Given the patient's family history of Alzheimer's disease, when she is more stable a further mental status examination should be accomplished. For the time being, she does not appear to be lithium toxic. She has completed treatment of the presumptive urinary tract infection with negative follow-up urinalysis and remains psychotic. The patient is less hostile but still psychotic. She is sleeping poorly. The patient may respond to an increased dose of zolpidem to help normalize sleep. [place] AXIS I: 1. Bipolar disorder, current episode, mixed with psychotic features. 2. Major neurocognitive disorder, unspecified, with dementia versus pseudodementia. AXIS II: Deferred. AXIS III: See past medical history with current urinary tract infection. AXIS IV: Unknown. AXIS V: Global Assessment of Functioning 20. Treatments 1. The patient is admitted to the inpatient unit and will be provided a safe and secure environment. 2. The patient is denying current active suicidality and is not in need of a one-to-one at this time. 3. The patient is encouraged to participate with group and milieu activities. 4. The patient will be seen by the treatment team on a daily basis to assess symptoms, side effects and response to treatment. 5. The patient will be continued on lithium/Eskalith 450 mg at bedtime. 6. Increase quetiapine to 200mg at bedtime and 100mg daily due to persistent psychosis. 7. Lorazepam for anxiety. 8. Increase zolpidem to 10 mg nightly. 9. Anticipated length of stay is 10-14 days. Lester Cruz MD May 02, 2016 18:18
[2016-05-03] MEDS: Pantoprazole 40 mg ER24 Tablet PO SCH (07:30)
[2016-05-03 15:20] LABS: BASOPHILS % (AUTO) 0.3 % (0-3); MONOCYTES % (AUTO) 10.3 % (4-12); Mean Corpuscular Hemoglobin 30.5 pg (27.0-35.0); Mean Corpuscular Volume 97.8 fL (81-100); NEUTROPHILS % (AUTO) 59.7 % (40-74); Platelet Count 217 bil/L (150-400)
--- NOTE | 2016-05-03 16:49 | PCM.PNPSY ---
Subjective Date of Service May 03, 2016 Subjective The patient is still fixated on family members returning from the , " the marines are here.". She was more pleasant today but indicated that she was having direct communication with her family in her right ear telling her that they were arriving via helicopter or airplane. She was again focused on themes of [place] Curran [facility] [place], her career as a nurse. The patient again was focused on her bruising and that her blood drawn was not as it should have been. She also added "the care consultant made me very short of breath"for unclear reasons. We discussed getting blood work to assess there is a metabolic cause for her current symptoms. Sleep: 5.5+ hours Appetite: good Suicidal and homicidal ideation: denies Auditory hallucinations: As above Visual hallucinations: Denied Other Psychotic Symptoms: delusions as above Anxiety: Denies Depression: Denies Current Medications Current Medications Clonazepam 0.5 mg TID PO Last administered on 05/03/16 15:29; Admin Dose 0.5 MG ; Start 05/03/16 at 09:35 Zolpidem Tartrate 10 mg HS PRN PO Last administered on 05/02/16 23:16; Admin Dose 10 MG; Start 05/02/16 at 23:14 Mental Status Exam Appearance: Unkept Attitude: Cooperative Behavior: Distractible Affect: Labile Mood: Euphoric Thought Process/Associations: Tangential, Circumstantial Speech Production: Abundant Speech Rate: Pressured Speech Articulation: Normal Thought Content: Somatic preoccupation, Suspicious, Perseveration Danger to Self/Suicidal Ideati: None Danger to Others: None Delusions: Paranoid (Endorses) Hallucinations: Auditory (Endorses), Visual (Denies) Consciousness: Alert Orientation: Person, Place Memory: Short Term Memory (Impaired) Estimate Intellectual Function: Average Basis for IQ estimate: Educational history, Employment history Attention/Concentration & Cogn: Impaired Insight: None Judgement: Poor Result Diagram: 05/03/16 1511 05/03/16 1511 Mental Health Plan The patient is a 71-year-old female who has been medication adherent, but has developed altered mental status over the last few days. The urinalysis is significant for urinary tract infection which could explain the patient's abnormal mental status, but subsequent urinalysis indicates the infection has been treated. The patient also could have a progressing neurocognitive disorder. Given the patient's family history of Alzheimer's disease, when she is more stable a further mental status examination should be accomplished. Her lithium level was 0.7 on 04/29/2016, so it would be unusual for her to be lithium toxic. The patient has shown no significant improvement with increase in quetiapine, but she is less hostile. The patient's sleep is improved somewhat with increase in quetiapine. The patient may also respond to an increased dose of zolpidem to help normalize sleep. The patient had previously responded to clonazepam low dose in the past and this may provide some relief. [place] AXIS I: 1. Bipolar disorder, current episode, mixed with psychotic features. 2. Major neurocognitive disorder, unspecified, with dementia versus pseudodementia. AXIS II: Deferred. AXIS III: See past medical history with current urinary tract infection. AXIS IV: Unknown. AXIS V: Global Assessment of Functioning 20. Medications Quetiapine 100 mg daily and 200 mg nightly with 50 mg 3 times daily as needed Zolpidem 10 mg nightly as needed for insomnia Eskalith 450 mg nightly Hydroxyzine 50 mg 3 times a day as needed Amlodipine 2.5 mg daily Pantoprazole 40 mg daily Treatments 1. The patient is admitted to the inpatient unit and will be provided a safe and secure environment. 2. The patient is denying current active suicidality and is not in need of a one-to-one at this time. 3. The patient is encouraged to participate with group and milieu activities. 4. The patient will be seen by the treatment team on a daily basis to assess symptoms, side effects and response to treatment. 5. The patient will be continued on lithium/Eskalith 450 mg at bedtime. 6. Clonazepam 0.5 mg 3 times daily. 7. Increase zolpidem to 10 mg nightly. 8. Check CBC, CMP, ammonia level. So far no significant abnormalities and ammonia negative. 9. Anticipated length of stay is 10-14 days. Lester Cruz MD May 03, 2016 16:49
[2016-05-04] MEDS: Pantoprazole 40 mg ER24 Tablet PO SCH (07:23)
[2016-05-04 13:45] VITALS: BP 145/75; PULSE 87; RESP 17
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
[2016-05-05] MEDS: Pantoprazole 40 mg ER24 Tablet PO SCH (06:42)
[2016-05-05 13:00] VITALS: BP 152/62; PULSE 68; RESP 18
--- NOTE | 2016-05-05 14:50 | PCM.PNPSY ---
Subjective Date of Service May 05, 2016 Subjective I spent 30 minutes both reviewing treatment plan and providing supportive/ educational psychotherapy. I spent more than 50% of the time counseling the patient. I reviewed the treatment plan with the patient and discussed her rights in terms of her court hearing today. She is scheduled for a 14 day most restrictive order. Breanna reports a marked improvement in thought organization and mood stability however both staff and myself have noticed increasing paranoid grandiose and erotic delusions. She believes that she is on the "Lord' s line". She believes that she is to Dr. Hi and that her has remarried.. Staff reports that she continues to respond to internal stimuli. They describe her as being hyperverbal and that they are unable to reason with her. She has very poor judgment and is unable to relate a coherent history. She slept 6 hours and denies depression or psychotic symptoms review. She denies medication side effects. Patient was not able to identify her medications but was aware of what they were used to treat. She appeared to understand the need for medications by the questions she asked during our discussion. Mental Status Exam Appearance: Unkept Attitude: Cooperative Behavior: Distractible Affect: Labile Mood: Euphoric Thought Process/Associations: Tangential, Circumstantial Speech Production: Abundant Speech Rate: Pressured Speech Articulation: Normal Thought Content: Somatic preoccupation, Suspicious, Perseveration Danger to Self/Suicidal Ideati: None Danger to Others: None Delusions: Paranoid (Endorses) Hallucinations: Auditory (Endorses) Consciousness: Alert Orientation: Person, Place Memory: Short Term Memory (Impaired) Estimate Intellectual Function: Average Basis for IQ estimate: Educational history, Employment history Attention/Concentration & Cogn: Impaired Insight: Limited Judgement: Limited Result Diagram: 05/03/16 1511 05/03/16 1511 Mental Health Plan The patient is a 71-year-old female who has been medication adherent, but has developed altered mental status for a week prior to admission. She remains in an acute manic state with significant disorganization of thought , poor judgment, poor insight and poor impulse control. At this point she is unable to remember events prior to admission where she reportedly had become aggressive with her . She denies medication side effects at this time but will likely need up to an additional 14 days for stabilization. [place] AXIS I: 1. Bipolar disorder, current episode, mixed with psychotic features. 2. Major neurocognitive disorder, unspecified, with dementia versus pseudodementia. AXIS II: Deferred. AXIS III: See past medical history with current urinary tract infection. AXIS IV: Unknown. AXIS V: Global Assessment of Functioning 30. Medications Quetiapine 100 mg daily and 200 mg nightly with 50 mg 3 times daily as needed Zolpidem 10 mg nightly as needed for insomnia Eskalith 450 mg nightly Hydroxyzine 50 mg 3 times a day as needed Amlodipine 2.5 mg daily Pantoprazole 40 mg daily Treatments 1. The patient is admitted to the inpatient unit and will be provided a safe and secure environment. 2. The patient is denying current active suicidality and is not in need of a one-to-one at this time. 3. The patient is encouraged to participate with group and milieu activities. 4. The patient will be seen by the treatment team on a daily basis to assess symptoms, side effects and response to treatment. 5. The patient will be continued on lithium/Eskalith 450 mg at bedtime. 6. Clonazepam 0.5 mg 3 times daily. 7. Increase zolpidem to 10 mg nightly. 8. Check CBC, CMP, ammonia level. So far no significant abnormalities and ammonia negative. 9. Anticipated length of stay is 10-14 days. 10. She was ordered to a [address] ordered today Gunner Palacios MD May 05, 2016 14:50
[2016-05-06] MEDS: Pantoprazole 40 mg ER24 Tablet PO SCH (07:46)
[2016-05-06 12:05] VITALS: BP 141/68; PULSE 76; RESP 16
--- NOTE | 2016-05-06 13:23 | PCM.PNPSY ---
Subjective Date of Service May 06, 2016 Subjective I spent 30 minutes both reviewing treatment plan and providing supportive/ educational psychotherapy. I spent more than 50% of the time counseling the patient. She is now on a 14 day most restrictive order. Breanna reports dealing fine and ready for discharge however both staff and myself have noticed intense paranoid grandiose and erotic delusions. She believes that she is on the "Lord's line". She believes that she is to Dr. Hi and that her has remarried. Staff reports that she continues to respond to internal stimuli. They describe her as being hyperverbal and that they are unable to reason with her. She has very poor judgment and is unable to relate a coherent history. She slept 6.5 hours and denies depression or psychotic symptoms review. She denies medication side effects. Patient was not able to identify her medications but was aware of what they were used to treat. She appeared to understand the need for medications by the questions she asked during our discussion Mental Status Exam Vital Signs Vital Signs Date Time Temp Pulse Resp B/P Pulse Ox O2 Delivery O2 Flow Rate FiO2 05/06/16 12:05 36.2 76 16 141/68 Appearance: Unkept Attitude: Cooperative Behavior: Distractible Affect: Labile Mood: Euphoric Thought Process/Associations: Tangential, Circumstantial Speech Production: Abundant Speech Rate: Pressured Speech Articulation: Normal Thought Content: Somatic preoccupation, Suspicious, Perseveration Danger to Self/Suicidal Ideati: None Danger to Others: None Delusions: Paranoid (Endorses) Hallucinations: Auditory (Endorses) Consciousness: Alert Orientation: Person, Place Memory: Short Term Memory (Impaired) Estimate Intellectual Function: Average Basis for IQ estimate: Educational history, Employment history Attention/Concentration & Cogn: Impaired Insight: Limited Judgement: Limited Result Diagram: 05/03/16 1511 05/03/16 1511 Mental Health Plan The patient is a 71-year-old female who has been medication adherent, but developed altered mental status for a week prior to admission. She remains in an acute manic state with significant disorganization of thought , poor judgment, poor insight and poor impulse control. At this point she is unable to remember events prior to admission where she reportedly had become aggressive with her . She denies medication side effects at this time but will likely need up to an additional 14 days for stabilization. [place] AXIS I: 1. Bipolar disorder, current episode, mixed with psychotic features. 2. Major neurocognitive disorder, unspecified, with dementia versus pseudodementia. AXIS II: Deferred. AXIS III: See past medical history with current urinary tract infection. AXIS IV: Unknown. AXIS V: Global Assessment of Functioning 30. Medications Quetiapine 100 mg daily and 200 mg nightly Eskalith 450 mg nightly Amlodipine 2.5 mg daily Pantoprazole 40 mg daily Clonazepam 0.5 mg 3 times daily. zolpidem 10 mg nightly Treatments 1. The patient is admitted to the inpatient unit and will be provided a safe and secure environment. 2. The patient is denying current active suicidality and is not in need of a one-to-one at this time. 3. The patient is encouraged to participate with group and milieu activities. 4. The patient will be seen by the treatment team on a daily basis to assess symptoms, side effects and response to treatment. 5. The patient will be continued on lithium/Eskalith 450 mg at bedtime. 6. Clonazepam 0.5 mg 3 times daily. 7. Increase zolpidem to 10 mg nightly. 8. Check CBC, CMP, ammonia level. So far no significant abnormalities and ammonia negative. 9. Anticipated length of stay is 10-14 days. 10. She was ordered to a [address] ordered today Gunner Palacios MD May 06, 2016 13:23
[2016-05-07] MEDS: Pantoprazole 40 mg ER24 Tablet PO SCH (08:29)
[2016-05-07 12:27] VITALS: BP 142/77; PULSE 77; RESP 18
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
[2016-05-08] MEDS: Pantoprazole 40 mg ER24 Tablet PO SCH (07:34)
[2016-05-08 09:40] VITALS: BP 127/65; PULSE 70; RESP 16
--- NOTE | 2016-05-08 13:32 | PCM.PNPSY ---
Subjective Date of Service May 08, 2016 Subjective I spent 30 minutes both reviewing treatment plan and providing supportive/ educational psychotherapy. I spent more than 50% of the time counseling the patient. Breanna reports feeling fine and ready for discharge however both staff and myself have noticed intense paranoid grandiose and erotic delusional themes to her conversations. She believes that she is on the "Lord's line". She believes that she is to Dr. Hi and that her has remarried. Staff reports that she continues to respond to internal stimuli. They describe her as being hyperverbal and that it is difficult to reason with her. She has very poor judgment and is unable to relate a coherent history. She slept 6.5 hours and denies depression or psychotic symptoms review. She denies medication side effects. Patient was not able to identify her medications but was aware of what they were used to treat. She appeared to understand the need for medications by the questions she asked during our discussion Current Medications Current Medications Zolpidem Tartrate 5 mg HS PRN PO Last administered on 05/07/16t 22:07; Admin Dose 5 MG; Start 05/07/16 at 06:38 Mental Status Exam Appearance: Unkept Attitude: Cooperative Behavior: Distractible Affect: Labile Mood: Euphoric Thought Process/Associations: Tangential, Circumstantial Speech Production: Abundant Speech Rate: Pressured Speech Articulation: Normal Thought Content: Somatic preoccupation, Suspicious, Perseveration Danger to Self/Suicidal Ideati: None Danger to Others: None Delusions: Paranoid (Endorses) Hallucinations: Auditory (Endorses) Consciousness: Alert Orientation: Person, Place Memory: Short Term Memory (Impaired) Estimate Intellectual Function: Average Basis for IQ estimate: Educational history, Employment history Attention/Concentration & Cogn: Impaired Insight: Limited Judgement: Limited Result Diagram: 05/03/16 1511 05/03/16 1511 Mental Health Plan The patient is a 71-year-old female who has been medication adherent, but developed altered mental status for a week prior to admission. She remains in an acute manic state with significant disorganization of thought, poor judgment, poor insight and poor impulse control. At this point she is unable to remember events prior to admission where she reportedly had become aggressive with her . She denies medication side effects at this time but will likely need up to an additional 14 days for stabilization. Breanna is currently in the manic stage of bipolar mood disorder. When she was Here on the unit last year she was in a depressed state for over 6 weeks. I believe she needs time on the current medications and the structure of our unit To reestablish emotional stability and reality based thinking. [place] AXIS I: 1. Bipolar disorder, current episode, mixed with psychotic features. 2. Major neurocognitive disorder, unspecified, with dementia versus pseudodementia. AXIS II: Deferred. AXIS III: See past medical history with current urinary tract infection. AXIS IV: Unknown. AXIS V: Global Assessment of Functioning 30. Medications Quetiapine 100 mg daily and 200 mg nightly Eskalith 450 mg nightly Amlodipine 2.5 mg daily Pantoprazole 40 mg daily Clonazepam 0.5 mg 3 times daily. zolpidem 10 mg nightly Treatments 1. The patient is admitted to the inpatient unit and will be provided a safe and secure environment. 2. The patient is denying current active suicidality and is not in need of a one-to-one at this time. 3. The patient is encouraged to participate with group and milieu activities. 4. The patient will be seen by the treatment team on a daily basis to assess symptoms, side effects and response to treatment. 5. The patient will be continued on lithium/Eskalith 450 mg at bedtime. 6. Clonazepam 0.5 mg 3 times daily. 7. zolpidem to 5 mg nightly. 9. Anticipated length of stay is 10-14 days. 10. She was ordered to a [address] order Gunner Palacios MD May 08, 2016 13:32
[2016-05-09] MEDS: Pantoprazole 40 mg ER24 Tablet PO SCH (07:30)
[2016-05-09 11:00] VITALS: BP 136/81; PULSE 67; RESP 16
--- NOTE | 2016-05-09 13:49 | PCM.PNPSY ---
Subjective Date of Service May 09, 2016 Subjective I spent 10 minutes both reviewing treatment plan and providing educational psychotherapy. Breanna reports feeling fine and ready for discharge. He does not remember the conversation we had yesterday. Both staff and myself have noticed continued paranoid grandiose and erotic delusional themes to her conversations. She believes that she is to Dr. Hi and that her has remarried. Staff reports that she no longer appears to the responding to internal stimuli. They describe her as being hyperverbal and that it is difficult to reason with her. She has very poor judgment and is unable to relate a coherent history. She slept 4 hours and denies depression or psychotic symptoms review. She denies medication side effects. Patient was not able to identify her medications but was aware of what they were used to treat. She appeared to understand the need for medications by the questions she asked during our discussion Mental Status Exam Vital Signs Vital Signs Date Time Temp Pulse Resp B/P Pulse Ox O2 Delivery O2 Flow Rate FiO2 05/09/16 11:00 36.3 67 16 136/81 Appearance: Unkept Attitude: Cooperative Behavior: Distractible Affect: Labile Mood: Euphoric Thought Process/Associations: Tangential, Circumstantial Speech Production: Abundant Speech Rate: Pressured Speech Articulation: Normal Thought Content: Somatic preoccupation, Suspicious, Perseveration Danger to Self/Suicidal Ideati: None Danger to Others: None Delusions: Paranoid (Endorses), Grandiose (Endorses) Hallucinations: Auditory (Endorses) Consciousness: Alert Orientation: Person, Place Memory: Short Term Memory (Impaired) Estimate Intellectual Function: Average Basis for IQ estimate: Educational history, Employment history Attention/Concentration & Cogn: Impaired Insight: Limited Judgement: Limited Result Diagram: 05/03/16 1511 05/03/16 1511 Mental Health Plan The patient is a 71-year-old female who has been medication adherent, but developed altered mental status for a week prior to admission. She remains in an acute manic state with significant disorganization of thought, poor judgment, poor insight and poor impulse control. At this point she is unable to remember events prior to admission where she reportedly had become aggressive with her . She denies medication side effects at this time but will likely need up to an additional 14 days for stabilization. Breanna is currently in the manic stage of bipolar mood disorder. When she was Here on the unit last year she was in a depressed state for over 6 weeks. I believe she needs time on the current medications and the structure of our unit To reestablish emotional stability and reality based thinking. [place] AXIS I: 1. Bipolar disorder, current episode, mixed with psychotic features. 2. Major neurocognitive disorder, unspecified, with dementia versus pseudodementia. AXIS II: Deferred. AXIS III: See past medical history with current urinary tract infection. AXIS IV: Unknown. AXIS V: Global Assessment of Functioning 30. Medications Quetiapine 100 mg daily and 200 mg nightly Eskalith 450 mg nightly Amlodipine 2.5 mg daily Pantoprazole 40 mg daily Clonazepam 0.5 mg 3 times daily. zolpidem 10 mg nightly Treatments 1. The patient is admitted to the inpatient unit and will be provided a safe and secure environment. 2. The patient is denying current active suicidality and is not in need of a one-to-one at this time. 3. The patient is encouraged to participate with group and milieu activities. 4. The patient will be seen by the treatment team on a daily basis to assess symptoms, side effects and response to treatment. 5. The patient will be continued on lithium/Eskalith 450 mg at bedtime. 6. Clonazepam 0.5 mg 3 times daily. 7. zolpidem to 5 mg nightly. 9. Anticipated length of stay is 10-14 days. 10. She was ordered to a [address] order Gunner Palacios MD May 09, 2016 13:49
[2016-05-10] MEDS: Pantoprazole 40 mg ER24 Tablet PO SCH (06:30)
[2016-05-10 13:00] VITALS: BP 138/84; PULSE 74; RESP 18
[2016-05-11] MEDS: Pantoprazole 40 mg ER24 Tablet PO SCH (08:38)
[2016-05-11 11:27] VITALS: BP 142/76; PULSE 72; RESP 17
[2016-05-11 13:09] LABS: APPEARANCE,URINE HAZY (CLEAR,HAZY); COLOR,URINE STRAW (YELLOW); OCCULT BLOOD,URINE NEGATIVE (NEGATIVE); UROBILINOGEN,URINE NORMAL (NORMAL)
--- NOTE | 2016-05-11 15:27 | PCM.PNPSY ---
Subjective Date of Service May 11, 2016 Subjective The patient is still fixated on family members returning from the , " the marines are here" but in contrast to prior statements, indicates that he [place], [place]. The patient reported that she had last seen Dr. Borden 14 months ago and denied talking to him or having auditory hallucinations. Just prior to our interview, she did report to nursing staff that she was to him. She also wanted to clarify that she reported that he mother, "Anabel Chavez ," did not commit suicide and she is unsure, "how two bags got over her head and she didn't pull them off." Discussed decreasing clonazepam or quetiapine to decrease disinhibition, patient preferred clonazepam first. She denied any symptoms of UTI but was still concerned about her pessary. The patient still believes this mortgage or loan underwriter covered for her PCP, Dr. Mg. Sleep: 4.5+ hours Appetite: "great" Suicidal and homicidal ideation: denies Auditory hallucinations: denies Visual hallucinations: denies Other Psychotic Symptoms: delusions as above Mental Status Exam Vital Signs Vital Signs Date Time Temp Pulse Resp B/P Pulse Ox O2 Delivery O2 Flow Rate FiO2 05/11/16 11:27 36.3 72 17 142/76 Appearance: Unkept Attitude: Cooperative Behavior: Distractible Affect: Labile Mood: Euphoric Thought Process/Associations: Tangential, Circumstantial Speech Production: Abundant Speech Rate: Normal Speech Articulation: Normal Thought Content: Somatic preoccupation, Suspicious, Perseveration Danger to Self/Suicidal Ideati: None Danger to Others: None Delusions: Paranoid (Endorses), Grandiose (Endorses) Hallucinations: Auditory (Denies), Visual (Denies) Consciousness: Alert Orientation: Person, Place Memory: Short Term Memory (Impaired) Estimate Intellectual Function: Average Basis for IQ estimate: Word use/vocabulary, Educational history, Employment history Attention/Concentration & Cogn: Impaired Insight: Limited Judgement: Limited Mental Health Plan The patient is a 71-year-old female who has been medication adherent, but has developed altered mental status over the last few days. The urinalysis was significant for urinary tract infection which could explain the patient's abnormal mental status, but subsequent urinalysis indicated the infection had been treated yet remained psychotic. The patient also could have a progressing neurocognitive disorder worsening her psychiatric symptoms. Given the patient' s family history of Alzheimer's disease, when she is more stable a further mental status examination should be accomplished. Her lithium level was 0.7 on 04/29/2016, so it would be unusual for her to be lithium toxic. The patient has shown minimal improvement with increase in quetiapine, but she is less hostile. The patient reports improved sleep with quetiapine and is reluctant to decrease dose. We did discuss possible disinhibition with clonazepam and she was agreeable to reducing dose. Discussed current treatment plan with . [place] AXIS I: 1. Bipolar disorder, current episode, mixed with psychotic features. 2. Major neurocognitive disorder, unspecified, with dementia versus pseudodementia. AXIS II: Deferred. AXIS III: See past medical history with history of urinary tract infection. AXIS IV: Unknown. AXIS V: Global Assessment of Functioning 30. Medications Quetiapine 100 mg daily and 200 mg nightly Eskalith 450 mg nightly Amlodipine 2.5 mg daily Pantoprazole 40 mg daily Clonazepam 0.5 mg 3 times daily. zolpidem 5 mg nightly Treatments 1. The patient is admitted to the inpatient unit and will be provided a safe and secure environment. 2. The patient is denying current active suicidality and is not in need of a one-to-one at this time. 3. The patient is encouraged to participate with group and milieu activities. 4. The patient will be seen by the treatment team on a daily basis to assess symptoms, side effects and response to treatment. 5. The patient will be continued on lithium/Eskalith 450 mg at bedtime. 6. Decrease clonazepam to 0.5 mg twice daily. 7. Continue zolpidem to 5 mg nightly. 9. Consider decrease quetiapine given prior medication sensitivity. Call to outpatient provider to discuss treatment plan. 10. Check UA 11. Anticipated length of stay is 10-14 days. Patient is currently on 14 day Lester Wadsworth MD May 11, 2016 15:26
[2016-05-12] MEDS: Pantoprazole 40 mg ER24 Tablet PO SCH (07:27)
[2016-05-12] MEDS: Trimethoprim-Sulfa 160 mg-800 mg Tablet PO SCH ×2 (10:48→20:48)
[2016-05-12 10:51] VITALS: BP 150/79; PULSE 72; RESP 16
--- NOTE | 2016-05-12 16:02 | PCM.PNPSY ---
Subjective Date of Service May 12, 2016 Subjective The patient reports that there are "14 marines camped out on our acreage." She also indicates that her grandson, Lester Gonzalez, is a marine and may be landing on her help had [place] their [place]. She reports that she needs to return home as she is having a hair permanent done at 2 PM today as well as a hair removal appointments. She denied experiencing direct auditory communication with Dr. Borden today. She again discussed that she did not believe her mother committed suicide with "paper" bags. She stated, "Dr. Cruz said I was going to be leaving today" and seems somewhat confused when informed that I was Dr. Cruz. The patient had a positive UTI and was informed of same but insisted that this could be treated as an outpatient. She denied racing thoughts. Sleep: 5+ hours Appetite: "Fine" Suicidal and homicidal ideation: denies Auditory hallucinations: denies Visual hallucinations: denies Other Psychotic Symptoms: delusions as above Anxiety: 0/10 Depression: 0/10 Current Medications Current Medications Clonazepam 0.5 mg HS PO Last administered on 05/11/16 20:10; Admin Dose 0.5 MG ; Start 05/11/16 at 21:00 Trimethoprim/ Sulfamethoxazole 1 tablet BID PO Last administered on 05/12/16 10 :48; Admin Dose 1 TABLET; Start 05/12/16 at 09:35; Stop 05/16/16 at 21:01 Mental Status Exam Vital Signs Vital Signs Date Time Temp Pulse Resp B/P Pulse Ox O2 Delivery O2 Flow Rate FiO2 05/12/16 10:51 36.1 72 16 150/79 Appearance: Unkept Attitude: Cooperative Behavior: Distractible Affect: Labile Mood: Euphoric Thought Process/Associations: Tangential, Circumstantial Speech Production: Abundant Speech Rate: Normal Speech Articulation: Normal Thought Content: Somatic preoccupation, Suspicious, Perseveration Danger to Self/Suicidal Ideati: None Danger to Others: None Delusions: Paranoid (Endorses), Grandiose (Endorses) Hallucinations: Auditory (Denies), Visual (Denies) Consciousness: Alert Orientation: Person, Place Memory: Short Term Memory (Impaired) Estimate Intellectual Function: Average Basis for IQ estimate: Word use/vocabulary, Educational history, Employment history Attention/Concentration & Cogn: Impaired Insight: Limited Judgement: Limited Mental Health Plan The patient is a 71-year-old female who has been medication adherent, but has developed altered mental status over the last few days. The urinalysis was significant for urinary tract infection which could explain the patient's abnormal mental status, but subsequent urinalysis indicated the infection had been treated yet remained psychotic. The patient also could have a progressing neurocognitive disorder worsening her psychiatric symptoms. Given the patient' s family history of Alzheimer's disease, when she is more stable a further mental status examination should be accomplished. Her lithium level was 0.7 on 04/29/2016, so it would be unusual for her to be lithium toxic. The patient has shown minimal improvement with increase in quetiapine, but she is less hostile. The patient reports improved sleep with quetiapine and is reluctant to decrease dose. The patient was unaware that her lorazepam had been decreased to bedtime only and believed she had taken a dose this morning. We discussed the need for treatment of her positive UTI and she agreed to take Bactrim double strength. Her symptoms are likely still feeling the effects of the ongoing urinary tract infection [place] AXIS I: 1. Bipolar disorder, current episode, mixed with psychotic features. 2. Major neurocognitive disorder, unspecified, with dementia versus pseudodementia. AXIS II: Deferred. AXIS III: Urinary tract infection. See past medical history. AXIS IV: Unknown. AXIS V: Global Assessment of Functioning 30. Medications Quetiapine 100 mg daily and 200 mg nightly Eskalith 450 mg nightly Amlodipine 2.5 mg daily Pantoprazole 40 mg daily Clonazepam 0.5 mg 3 times daily. zolpidem 5 mg nightly Treatments 1. The patient is admitted to the inpatient unit and will be provided a safe and secure environment. 2. The patient is denying current active suicidality and is not in need of a one-to-one at this time. 3. The patient is encouraged to participate with group and milieu activities. 4. The patient will be seen by the treatment team on a daily basis to assess symptoms, side effects and response to treatment. 5. The patient will be continued on lithium/Eskalith 450 mg at bedtime. 6. Continue clonazepam 0.5 mg at bedtime. 7. Continue zolpidem 5 mg nightly. 9. Consider decrease quetiapine given prior medication sensitivity. Call to outpatient provider to discuss treatment plan. Awaiting call back. 10. Bactrim DS twice daily for 5 days. 11. Anticipated length of stay is 10-14 days. Patient is currently on 14 day MRO. Lester Cruz MD May 12, 2016 16:02
[2016-05-13] MEDS: Pantoprazole 40 mg ER24 Tablet PO SCH (06:37)
[2016-05-13] MEDS: Trimethoprim-Sulfa 160 mg-800 mg Tablet PO SCH ×2 (08:26→21:17)
[2016-05-13 10:31] VITALS: BP 135/74; PULSE 70; RESP 16
--- NOTE | 2016-05-13 14:52 | PCM.PNPSY ---
Subjective Date of Service May 13, 2016 Subjective The patient reports that she needs to be discharged today. She reported her visited and he appeared "really tired." The patient stated that her younger son is going to [employer] and a "young marine is coming home any time." The patient then began talking to may unseen others, asking "Julian" (her son) when he was coming to pick her up, appeared to be responding to verbal responses and asked further "1,2, or 3 o'clock?" She also indicated that she was speaking to Dr. Borden, and Manjinder Malcolm. She indicated that if we did not discharge her at noon, "15 marines, law enforcement, and the [employer]" were going to come to extract her. The patient had a rash on her chin yesterday (prior to Bactrim) which is worse today. Patient agreed to topical antibiotic. Sleep: 4.75+ hours Appetite: "not eating here" because she anticipates leaving before noon. Suicidal and homicidal ideation: denies Auditory hallucinations: as above, multiple Visual hallucinations: none reported Other Psychotic Symptoms: delusions as above Current Medications Current Medications Clonazepam 0.5 mg HS PO Last administered on 05/12/16 20:49; Admin Dose 0.5 MG ; Start 05/11/16 at 21:00 Trimethoprim/ Sulfamethoxazole 1 tablet BID PO Last administered on 05/13/16 08 :26; Admin Dose 1 TABLET; Start 05/12/16 at 09:35; Stop 05/16/16 at 21:01 Mental Status Exam Vital Signs Vital Signs Date Time Temp Pulse Resp B/P Pulse Ox O2 Delivery O2 Flow Rate FiO2 05/13/16 10:31 36.1 70 16 135/74 Appearance: Unkept Attitude: Guarded, Uncooperative Behavior: Distractible Affect: Labile Mood: Euphoric Thought Process/Associations: Tangential, Circumstantial Speech Production: Abundant Speech Rate: Normal Speech Articulation: Normal Thought Content: Somatic preoccupation, Suspicious, Perseveration Danger to Self/Suicidal Ideati: None Danger to Others: None Delusions: Paranoid (Endorses), Grandiose (Endorses) Hallucinations: Auditory (Endorses), Visual (Denies) Consciousness: Alert Orientation: Person, Place Memory: Short Term Memory (Impaired) Estimate Intellectual Function: Average Basis for IQ estimate: Word use/vocabulary, Educational history, Employment history Attention/Concentration & Cogn: Impaired Insight: Limited Judgement: Limited Mental Health Plan The patient is a 71-year-old female who has been medication adherent, but has developed altered mental status over the last few days. The urinalysis was significant for urinary tract infection which could explain the patient's abnormal mental status, but subsequent urinalysis indicated the infection had been treated yet remained psychotic. The patient also could have a progressing neurocognitive disorder worsening her psychiatric symptoms. Given the patient' s family history of Alzheimer's disease, when she is more stable a further mental status examination should be accomplished. Her lithium level was 0.7 on 04/29/2016, so it would be unusual for her to be lithium toxic. The patient has shown minimal improvement with increase in quetiapine, but she is less hostile. The patient appears to have had no significant positive or negative change with decrease in clonazepam. She is tolerating Bactrim without side effects. Discussed case with patient's outpatient provider, Dr. Vasquez, who concurred with current treatment. We discussed that since there has been no significant change and she has a history of medication sensitivity will try lowering dose of quetiapine and if more clear will continue at that dose, but if more agitated or delusional, will increase quetiapine to 200mg twice daily. [place] AXIS I: 1. Bipolar disorder, current episode, mixed with psychotic features. 2. Major neurocognitive disorder, unspecified, with dementia versus pseudodementia. AXIS II: Deferred. AXIS III: Urinary tract infection. See past medical history. AXIS IV: Unknown. AXIS V: Global Assessment of Functioning 30. Medications Quetiapine 100 mg daily and 200 mg nightly Eskalith 450 mg nightly Amlodipine 2.5 mg daily Pantoprazole 40 mg daily Clonazepam 0.5 mg 3 times daily. zolpidem 5 mg nightly Treatments 1. The patient is admitted to the inpatient unit and will be provided a safe and secure environment. 2. The patient is denying current active suicidality and is not in need of a one-to-one at this time. 3. The patient is encouraged to participate with group and milieu activities. 4. The patient will be seen by the treatment team on a daily basis to assess symptoms, side effects and response to treatment. 5. The patient will be continued on lithium/Eskalith 450 mg at bedtime. 6. Continue clonazepam 0.5 mg at bedtime. 7. Continue zolpidem 5 mg nightly. 9. Decrease quetiapine to 200mg daily. 10. Bactrim DS twice daily for 5 days. 11. Anticipated length of stay is 10-14 days. Patient is currently on 14 day MRO. Lester Cruz MD May 13, 2016 14:52 Lester Cruz MD May 13, 2016 14:52
[2016-05-13] MEDS: Bacitracin Ointment Packet TOPICAL SCH (21:18)
[2016-05-14] MEDS: Pantoprazole 40 mg ER24 Tablet PO SCH (07:42)
[2016-05-14] MEDS: Trimethoprim-Sulfa 160 mg-800 mg Tablet PO SCH ×2 (07:42→20:42)
[2016-05-14] MEDS: Bacitracin Ointment Packet TOPICAL SCH ×3 (07:43→20:45)
[2016-05-14 07:50] VITALS: BP 167/82; PULSE 85; RESP 17
--- NOTE | 2016-05-14 14:57 | PCM.PNPSY ---
Subjective Date of Service May 14, 2016 Subjective The patient reports that she needs to be discharged today as she has an appointment for her hair. She again reported that her grandson who is in the marines has arrived. Per patient's he will be coming sometime in July. The patient almost immediately began talk to unseen others, primarily her son , Julian. She reported receiving information about the whereabouts of her and when she would be discharged. Sleep: 2.5+ hours Appetite: okay Suicidal and homicidal ideation: denies Auditory hallucinations: as above, multiple Visual hallucinations: none reported Other Psychotic Symptoms: delusions as above Current Medications Current Medications Bacitracin 1 applic TID TOPICAL Last administered on 05/14/16 14:13; Admin Dose 1 APPLIC; Start 05/13/16 at 20:30 Quetiapine Fumarate 100 mg 1430 PO Last administered on 05/14/16 14:13; Admin Dose 100 MG; Start 05/14/16 at 14:30 Quetiapine Fumarate 100 mg DAILY PO Last administered on 05/14/16 09:43; Admin Dose 100 MG; Start 05/14/16 at 09:15 Quetiapine Fumarate 100 mg HS ONCE PO Last administered on 05/13/16 21:19; Admin Dose 100 MG; Start 05/13/16 at 21:00; Stop 05/13/16 at 21:01; Status DC Mental Status Exam Vital Signs Vital Signs Date Time Temp Pulse Resp B/P Pulse Ox O2 Delivery O2 Flow Rate FiO2 05/14/16 07:50 36.4 85 17 167/82 Appearance: Unkept Attitude: Guarded, Uncooperative Behavior: Distractible Affect: Labile Mood: Euphoric Thought Process/Associations: Tangential, Circumstantial Speech Production: Abundant Speech Rate: Normal Speech Articulation: Normal Thought Content: Somatic preoccupation, Suspicious, Perseveration Danger to Self/Suicidal Ideati: None Danger to Others: None Delusions: Paranoid (Endorses), Grandiose (Endorses) Hallucinations: Auditory (Endorses) Consciousness: Alert Orientation: Person, Place Memory: Short Term Memory (Impaired) Estimate Intellectual Function: Average Basis for IQ estimate: Word use/vocabulary, Educational history, Employment history Attention/Concentration & Cogn: Impaired Insight: Limited Judgement: Limited Mental Health Plan The patient is a 71-year-old female who has been medication adherent, but has developed altered mental status over the last few days. The urinalysis was significant for urinary tract infection which could explain the patient's abnormal mental status, but subsequent urinalysis indicated the infection had been treated yet remained psychotic. The patient also could have a progressing neurocognitive disorder worsening her psychiatric symptoms. Given the patient' s family history of Alzheimer's disease, when she is more stable a further mental status examination should be accomplished. Her lithium level was 0.7 on 04/29/2016, so it would be unusual for her to be lithium toxic. The patient has shown minimal improvement with increase in quetiapine, but she is less hostile. The patient appears to have had no significant positive or negative change with decrease in clonazepam. She is tolerating Bactrim without side effects. Discussed case with patient's outpatient provider, Dr. Vasquez, who concurred with current treatment. As patient appears with more rapid appearance of auditory hallucinations today and decreased sleep, will increase quetiapine to 100mg daily, at 1430 and 200mg at bedtime. Will check lithium level and other labs in am. [place] AXIS I: 1. Bipolar disorder, current episode, mixed with psychotic features. 2. Major neurocognitive disorder, unspecified, with dementia versus pseudodementia. AXIS II: Deferred. AXIS III: Urinary tract infection. See past medical history. AXIS IV: Unknown. AXIS V: Global Assessment of Functioning 30. Medications Quetiapine 200 mg nightly Eskalith 450 mg nightly Amlodipine 2.5 mg daily Pantoprazole 40 mg daily Clonazepam 0.5 mg nightly. zolpidem 5 mg nightly Treatments 1. The patient is admitted to the inpatient unit and will be provided a safe and secure environment. 2. The patient is denying current active suicidality and is not in need of a one-to-one at this time. 3. The patient is encouraged to participate with group and milieu activities. 4. The patient will be seen by the treatment team on a daily basis to assess symptoms, side effects and response to treatment. 5. The patient will be continued on lithium/Eskalith 450 mg at bedtime. Check lithium level, cbc, cmp in am. 6. Continue clonazepam 0.5 mg at bedtime. 7. Continue zolpidem 5 mg nightly. 9. Increase quetiapine to 100mg daily and at 1430 and 200mg nightly. 10. Bactrim DS twice daily for 5 days. 11. Anticipated length of stay is 10-14 days. Patient is currently on 14 day MRO. Lester Cruz MD May 14, 2016 14:57
[2016-05-15] MEDS: Pantoprazole 40 mg ER24 Tablet PO SCH (08:26)
[2016-05-15] MEDS: Bacitracin Ointment Packet TOPICAL SCH ×3 (08:27→20:46)
[2016-05-15] MEDS: Trimethoprim-Sulfa 160 mg-800 mg Tablet PO SCH ×2 (08:27→20:46)
[2016-05-15 08:39] LABS: BASOPHILS % (AUTO) 0.3 % (0-3); EOSINOPHILS % (AUTO) 2.2 % (0-5); MONOCYTES % (AUTO) 8.8 % (4-12); Mean Corpuscular Hemoglobin 29.9 pg (27.0-35.0); Mean Corpuscular Volume 97.2 fL (81-100); NEUTROPHILS % (AUTO) 70.1 % (40-74); Platelet Count 232 bil/L (150-400)
[2016-05-15 09:00] VITALS: BP 160/87; PULSE 86; RESP 16
--- NOTE | 2016-05-15 15:06 | PCM.PNPSY ---
Subjective Date of Service May 15, 2016 Subjective The patient reports again that she needs to be discharged today as she has an appointment for her hair and that this will be taking away the livelihood if she is not released. She was responding to auditory hallucinations and stated that her criminal attorney was Mani Pedraza. According to her who is accompanying her, Mani Pedraza is an criminal attorney but he is unsure whether she will be able to work with him. She also reported speaking with her son Carol. She was oriented to the second third of April 2016. She again reported that her grandson who is in the [employer] has arrived or is arriving and she was informed that he would be coming sometime in July. Sleep: 2.5+ hours "I slept very good" Appetite: okay Suicidal and homicidal ideation: denies Auditory hallucinations: as above, multiple Visual hallucinations: none reported Other Psychotic Symptoms: delusions as above Current Medications Current Medications Bacitracin 1 applic TID TOPICAL Last administered on 05/15/16 08:27; Admin Dose 1 APPLIC; Start 05/13/16 at 20:30 Quetiapine Fumarate 100 mg 1430 PO Last administered on 05/15/16 14:22; Admin Dose 100 MG; Start 05/14/16 at 14:30 Quetiapine Fumarate 100 mg DAILY PO Last administered on 05/15/16 08:26; Admin Dose 100 MG; Start 05/14/16 at 09:15 Quetiapine Fumarate 100 mg HS ONCE PO Last administered on 05/13/16 21:19; Admin Dose 100 MG; Start 05/13/16 at 21:00; Stop 05/13/16 at 21:01; Status DC Quetiapine Fumarate 200 mg HS PO Last administered on 05/14/16 20:42; Admin Dose 200 MG; Start 05/14/16 at 21:00 Mental Status Exam Appearance: Unkept Attitude: Guarded, Uncooperative Behavior: Distractible Affect: Labile Mood: Euphoric Thought Process/Associations: Tangential, Circumstantial Speech Production: Abundant Speech Rate: Normal Speech Articulation: Normal Thought Content: Somatic preoccupation, Suspicious, Perseveration Danger to Self/Suicidal Ideati: None Danger to Others: None Delusions: Paranoid (Endorses), Grandiose (Endorses) Hallucinations: Auditory (Endorses) Consciousness: Alert Orientation: Person, Place Memory: Short Term Memory (Impaired) Estimate Intellectual Function: Average Basis for IQ estimate: Word use/vocabulary, Educational history, Employment history Attention/Concentration & Cogn: Impaired Insight: Limited Judgement: Limited Result Diagram: 05/15/1682105/[id number]/16821 Mental Health Plan The patient is a 71-year-old female who has been medication adherent, but has developed altered mental status over the last few days. The urinalysis was significant for urinary tract infection which could explain the patient's abnormal mental status, but subsequent urinalysis indicated the infection had been treated yet remained psychotic. The patient also could have a progressing neurocognitive disorder worsening her psychiatric symptoms. Given the patient' s family history of Alzheimer's disease, when she is more stable a further mental status examination should be accomplished. Her lithium level was 0.7 on 04/29/2016, so it would be unusual for her to be lithium toxic. The patient has shown minimal improvement with increase in quetiapine, but she is less hostile. The patient appears to have had no significant positive or negative change with decrease in clonazepam. She is tolerating Bactrim without side effects. [place] level was 0.7 today. With increase in quetiapine, patient appears more agitated with more spontaneous and involved hallucinations. Discussed options with the patient's as the patient terminated the interview. As the patient has not been on Latuda and does not appear to be responding to quetiapine, will initiate Latuda 40 mg tomorrow morning. [place] AXIS I: 1. Bipolar disorder, current episode, mixed with psychotic features. 2. Major neurocognitive disorder, unspecified, with dementia versus pseudodementia. AXIS II: Deferred. AXIS III: Urinary tract infection. See past medical history. AXIS IV: Unknown. AXIS V: Global Assessment of Functioning 30. Medications Quetiapine 100mg daily, 100mg at 1430 and 200 mg nightly Eskalith 450 mg nightly Amlodipine 2.5 mg daily Pantoprazole 40 mg daily Clonazepam 0.5 mg nightly. zolpidem 5 mg nightly Treatments 1. The patient is admitted to the inpatient unit and will be provided a safe and secure environment. 2. The patient is denying current active suicidality and is not in need of a one-to-one at this time. 3. The patient is encouraged to participate with group and milieu activities. 4. The patient will be seen by the treatment team on a daily basis to assess symptoms, side effects and response to treatment. 5. The patient will be continued on lithium/Eskalith 450 mg at bedtime. Check lithium level, cbc, cmp in am. 6. Continue clonazepam 0.5 mg at bedtime. 7. Continue zolpidem 5 mg nightly. 9. Decrease quetiapine to 200mg nightly and initiate Latuda 40mg daily. 10. Bactrim DS twice daily for 5 days. 11. Anticipated length of stay is 10-14 days. Patient is currently on 14 day MRO. Lester Cruz MD May 15, 2016 15:06
[2016-05-16] MEDS: Pantoprazole 40 mg ER24 Tablet PO SCH (07:52)
[2016-05-16] MEDS: Trimethoprim-Sulfa 160 mg-800 mg Tablet PO SCH ×2 (07:52→21:14)
[2016-05-16] MEDS: Bacitracin Ointment Packet TOPICAL SCH ×3 (07:54→21:13)
[2016-05-16 09:50] VITALS: BP 162/72; PULSE 85; RESP 20
--- NOTE | 2016-05-16 13:49 | PCM.PNPSY ---
Subjective Date of Service May 16, 2016 Subjective The patient reports again that she needs to be discharged today as she has an appointment for her hair and to have chin hair removed. She was responding to auditory hallucinations and stated that her staff home therapy rn was Mani Pedraza and that she was marrying Dr. Borden. The patient was quite tremulous today. Discussed decreasing dose of lithium temporarily. Patient was agreeable. Patient insisted that grandson was coming in next few days or had arrived and spoke to auditory hallucination of her son to confirm. Sleep: 5.5+ hours "Don't stop my Seroquel" Appetite: very good Suicidal and homicidal ideation: denies Auditory hallucinations: as above, multiple Visual hallucinations: none reported Other Psychotic Symptoms: delusions as above Anxiety: due to peer Current Medications Current Medications Lurasidone HCl 40 mg DAILYWM PO Last administered on 05/16/16 07:53; Admin Dose 40 MG; Start 05/16/16 at 08:00 Quetiapine Fumarate 100 mg 1430 PO Last administered on 05/15/16 14:22; Admin Dose 100 MG; Start 05/14/16 at 14:30; Stop 05/15/16 at 15:07; Status DC Quetiapine Fumarate 200 mg HS PO Last administered on 05/15/16 20:46; Admin Dose 200 MG; Start 05/14/16 at 21:00 Mental Status Exam Vital Signs Vital Signs Date Time Temp Pulse Resp B/P Pulse Ox O2 Delivery O2 Flow Rate FiO2 05/16/16 09:50 36.6 85 20 162/72 Appearance: Unkept Attitude: Guarded, Uncooperative Behavior: Distractible Affect: Labile Mood: Euphoric Thought Process/Associations: Tangential, Circumstantial Speech Production: Abundant Speech Rate: Normal Speech Articulation: Normal Thought Content: Somatic preoccupation, Suspicious, Perseveration Danger to Self/Suicidal Ideati: None Danger to Others: None Delusions: Paranoid (Endorses), Grandiose (Endorses) Hallucinations: Auditory (Endorses) Consciousness: Alert Orientation: Person, Place Memory: Short Term Memory (Impaired) Estimate Intellectual Function: Average Basis for IQ estimate: Word use/vocabulary, Educational history, Employment history Attention/Concentration & Cogn: Impaired Insight: Limited Judgement: Limited Result Diagram: 05/15/1682105/15/16821 Mental Health Plan The patient is a 71-year-old female who has been medication adherent, but has developed altered mental status over the last few days. The urinalysis was significant for urinary tract infection which could explain the patient's abnormal mental status, but subsequent urinalysis indicated the infection had been treated yet remained psychotic. The patient also could have a progressing neurocognitive disorder worsening her psychiatric symptoms. Given the patient' s family history of Alzheimer's disease, when she is more stable a further mental status examination should be accomplished. Her lithium level was 0.7 on 04/29/2016, so it would be unusual for her to be lithium toxic. The patient has shown minimal improvement with increase in quetiapine, but she is less hostile. The patient appears to have had no significant positive or negative change with decrease in clonazepam. She is tolerating Bactrim without side effects. [place] 0.7. With increase in quetiapine, patient appears more agitated with more spontaneous and involved hallucinations. Discussed options with the patient's as the patient terminated the interview. Patient tolerating Latuda so far. Tremor over last few days concerning for possible lithium toxicity despite therapeutic range. [place] AXIS I: 1. Bipolar disorder, current episode, mixed with psychotic features. 2. Major neurocognitive disorder, unspecified, with dementia versus pseudodementia. AXIS II: Deferred. AXIS III: Urinary tract infection. See past medical history. AXIS IV: Unknown. AXIS V: Global Assessment of Functioning 30. Medications Quetiapine 200 mg nightly Latuda 40mg daily Eskalith 450 mg nightly Amlodipine 2.5 mg daily Pantoprazole 40 mg daily Clonazepam 0.5 mg nightly. zolpidem 5 mg nightly Treatments 1. The patient is admitted to the inpatient unit and will be provided a safe and secure environment. 2. The patient is denying current active suicidality and is not in need of a one-to-one at this time. 3. The patient is encouraged to participate with group and milieu activities. 4. The patient will be seen by the treatment team on a daily basis to assess symptoms, side effects and response to treatment. 5. Reduce lithium to 300mg, if symptoms worsen will return to 450mg 6. Continue clonazepam 0.5 mg at bedtime. 7. Continue zolpidem 5 mg nightly. 9. Continue quetiapine 200mg nightly and Latuda 40mg daily. 10. Bactrim DS twice daily for 5 days. 11. Anticipated length of stay is 10-14 days. Patient is currently on 14 day MRO. Lester Cruz MD May 16, 2016 13:49
[2016-05-17] MEDS: Pantoprazole 40 mg ER24 Tablet PO SCH (07:41)
[2016-05-17] MEDS: Bacitracin Ointment Packet TOPICAL SCH ×3 (07:43→20:26)
--- NOTE | 2016-05-17 10:14 | PCM.PNPSY ---
Subjective Date of Service May 17, 2016 Subjective Although the patient slept better last night and was reportedly calmer this morning, she is fairly agitated by the time that she is seen by the treatment team at approximately 9:15. She states "I have [eye] implants that record." She reports at that time that she is to Dr. Borden and that we are not to contact her current . She approaches one of the other patients and addresses him as Dr. Borden and asks him to follow her. She states that she will not talk to the treatment team, "don't you dare come near me." She appeared to be responding to auditory hallucinations and speaking directly with Dr. Borden who is not present. On a positive note, the patient was going to take a shower. Sleep: 5.25 hours Appetite: Eating well Suicidal and homicidal ideation: None reported Auditory hallucinations: As above Visual hallucinations: None reported Other Psychotic Symptoms: Appears more sexually preoccupied Current Medications Current Medications [place] Carbonate 300 mg HS PO Last administered on 05/16/16 21:14; Admin Dose 300 MG; Start 05/16/16 at 21:00 Lurasidone HCl 40 mg DAILYWM PO Last administered on 05/17/16 07:41; Admin Dose 40 MG; Start 05/16/16 at 08:00 Mental Status Exam Appearance: Unkept Attitude: Guarded, Uncooperative Behavior: Distractible Affect: Labile Mood: Euphoric Thought Process/Associations: Tangential, Circumstantial Speech Production: Abundant Speech Rate: Pressured (mild) Speech Articulation: Normal Thought Content: Somatic preoccupation, Suspicious, Perseveration, Erotomanic Danger to Self/Suicidal Ideati: None Danger to Others: None Delusions: Paranoid (Endorses), Grandiose (Endorses) Hallucinations: Auditory (Endorses) Consciousness: Hyper-vigilant Orientation: Person, Place Memory: Short Term Memory (Impaired) Estimate Intellectual Function: Average Basis for IQ estimate: Word use/vocabulary, Educational history, Employment history Attention/Concentration & Cogn: Impaired Insight: Limited Judgement: Limited Result Diagram: 05/15/1682105/15/16821 Mental Health Plan The patient is a 71-year-old female who has been medication adherent, but has developed altered mental status over the last few days prior to admission. The urinalysis was significant for urinary tract infection which could have explained the patient's abnormal mental status, but subsequent urinalysis indicated the infection had been treated yet the patient remained psychotic. The patient also could have a progressing neurocognitive disorder worsening her psychiatric symptoms. Given the patient's family history of a half-sister with Alzheimer's disease, when she is more stable a further mental status examination should be accomplished. Her lithium level was 0.7 on 04/29/2016 as well as his subsequent follow-up lithium level, so it would be unusual for her to be lithium toxic. The patient appeared to have worsening symptoms with increase of quetiapine and so was switched lurasidone. The patient was also quite tremulous and so lithium was decreased to 300 mg at bedtime. Although patient appears to have slept somewhat better she is more manic appearing today and more sexually focused and irritable. It appears that we will need to return her lithium level to 450 mg at bedtime. We will need to wait to determine whether to increase lurasidone to allow the medication to stabilize or begin the taper of quetiapine. [place] AXIS I: 1. Bipolar disorder, current episode, mixed with psychotic features. 2. Major neurocognitive disorder, unspecified, with dementia versus pseudodementia. AXIS II: Deferred. AXIS III: Urinary tract infection. See past medical history. AXIS IV: Unknown. AXIS V: Global Assessment of Functioning 30. Medications Quetiapine 200 mg nightly Latuda 40mg daily Eskalith 300 mg nightly Amlodipine 2.5 mg daily Pantoprazole 40 mg daily Clonazepam 0.5 mg nightly. zolpidem 5 mg nightly Treatments 1. The patient is admitted to the inpatient unit and will be provided a safe and secure environment. 2. The patient is denying current active suicidality and is not in need of a one-to-one at this time. 3. The patient is encouraged to participate with group and milieu activities. 4. The patient will be seen by the treatment team on a daily basis to assess symptoms, side effects and response to treatment. 5. Increase lithium to 450 mg. 6. Increase clonazepam to 0.5 mg twice daily 7. Continue zolpidem 5 mg nightly. 9. Continue quetiapine 200mg nightly and Latuda 40mg daily, consider tapering quetiapine if patient continues to appear disoriented. 10. Bactrim DS twice daily for 5 days, completed on 05/16/16, would recheck clean catch UA when more stable. 11. Anticipated length of stay is 10-14 days. Patient is currently on 14 day MRO but will likely need a longer period of inpatient stabilization. Lester Cruz MD May 17, 2016 10:13
[2016-05-17 10:30] VITALS: BP 153/89; PULSE 78; RESP 16
[2016-05-18] MEDS: Pantoprazole 40 mg ER24 Tablet PO SCH (08:15)
[2016-05-18] MEDS: Bacitracin Ointment Packet TOPICAL SCH ×3 (08:23→19:58)
[2016-05-18 10:47] VITALS: BP 120/67; PULSE 78; RESP 16
--- NOTE | 2016-05-18 12:09 | PCM.PNPSY ---
Subjective Date of Service May 18, 2016 Subjective I spent 30 minutes both reviewing treatment plan with the treatment team, evaluating Breanna in a one-to-one session, and providing educational psychotherapy. Breanna repeats feeling fine and ready for discharge. She does not remember the conversations we had last week but she does remember my name and my occupation. Both staff and myself have noticed continued paranoid grandiose and erotic delusional themes to her conversations. She believes again today that she is to Dr. Hi and that her has remarried. Staff reports that she appears to the responding to internal stimuli when left alone. They describe her as being hyperverbal and that it is difficult to reason with her. She has very poor judgment and is unable to relate a coherent history. She slept 6.5 hours and denies depression or psychotic symptoms review. She denies medication side effects. Patient was not able to identify her medications but was aware of what they were used to treat. She appeared to understand the need for medications by the questions she asked during our discussion Current Medications Current Medications Clonazepam 0.5 mg BID PO Last administered on 05/18/16 08:16; Admin Dose 0.5 MG ; Start 05/17/16 at 10:25 [place] Carbonate 300 mg HS PO Last administered on 05/16/16 21:14; Admin Dose 300 MG; Start 05/16/16 at 21:00; Stop 05/17/16 at 10:22; Status DC [place] Carbonate 450 mg HS PO Last administered on 05/17/16 20:26; Admin Dose 450 MG; Start 05/17/16 at 21:00 Mental Status Exam Vital Signs Vital Signs Date Time Temp Pulse Resp B/P Pulse Ox O2 Delivery O2 Flow Rate FiO2 05/18/16 10:47 35.8 78 16 120/67 Appearance: Unkept Attitude: Guarded, Uncooperative Behavior: Distractible Affect: Labile Mood: Euphoric Thought Process/Associations: Tangential, Circumstantial Speech Production: Abundant Speech Rate: Pressured (mild) Speech Articulation: Normal Thought Content: Somatic preoccupation, Suspicious, Perseveration, Erotomanic Danger to Self/Suicidal Ideati: None Danger to Others: None Delusions: Paranoid (Endorses), Grandiose (Endorses) Hallucinations: Auditory (Endorses) Consciousness: Hyper-vigilant Orientation: Person, Place Memory: Short Term Memory (Impaired) Estimate Intellectual Function: Average Basis for IQ estimate: Word use/vocabulary, Educational history, Employment history Attention/Concentration & Cogn: Impaired Insight: Limited Judgement: Limited Result Diagram: 05/15/1682105/15/16821 Mental Health Plan The patient is a 71-year-old female who developed altered mental status for several days prior to admission. She remains in an acute manic state with significant disorganization of thought , poor judgment, poor insight and poor impulse control. At this point she is unable to remember events prior to admission suggesting a potential progressing neurocognitive disorder. She denies medication side effects at this time but will likely need up to stay additionals days for stabilization. Breanna is currently in the manic stage of bipolar mood disorder. When she was here recently she was in a depressed state for over 6 weeks. I believe she needs time on the current medications and the structure of our unit To reestablish emotional stability and reality based thinking. Over the past week she appeared to have worsening symptoms with increase of quetiapine and so was switched lurasidone. The patient was also quite tremulous and so lithium was decreased to 300 mg at bedtime. Although patient appears to have slept somewhat better she remains in a manic state and is more sexually focused. It appears that we will need to return her lithium level to 450 mg at bedtime. We will need to wait to determine whether to increase lurasidone to allow the medication to stabilize or begin the taper of quetiapine. [place] AXIS I: 1. Bipolar disorder, current episode, mixed with psychotic features. 2. Major neurocognitive disorder, unspecified, with dementia versus pseudodementia. AXIS II: Deferred. AXIS III: Urinary tract infection. See past medical history. AXIS IV: Unknown. AXIS V: Global Assessment of Functioning 30. Medications Quetiapine 200 mg nightly Latuda 40mg daily Eskalith 300 mg nightly Amlodipine 2.5 mg daily Pantoprazole 40 mg daily Clonazepam 0.5 mg nightly. zolpidem 5 mg nightly Treatments 1. The patient is admitted to the inpatient unit and will be provided a safe and secure environment. 2. The patient is denying current active suicidality and is not in need of a one-to-one at this time. 3. The patient is encouraged to participate with group and milieu activities. 4. The patient will be seen by the treatment team on a daily basis to assess symptoms, side effects and response to treatment. 5. Increase lithium to 450 mg. 6. Increase clonazepam to 0.5 mg twice daily 7. Continue zolpidem 5 mg nightly. 9. Continue quetiapine 200mg nightly and Latuda 40mg daily, consider tapering quetiapine if patient continues to appear disoriented. 10. Bactrim DS twice daily for 5 days, completed on 05/16/16, would recheck clean catch UA when more stable. 11. Anticipated length of stay is 10-14 days. Patient is currently on 14 day MRO but will likely need a longer period of inpatient stabilization. Gunner Palacios MD May 18, 2016 12:09
[2016-05-18 13:45] LABS: APPEARANCE,URINE HAZY (CLEAR,HAZY); COLOR,URINE STRAW (YELLOW)
--- NOTE | 2016-05-18 13:46 | PROG NOTE ---
[address] [address] PROGRESS NOTE PATIENT: UMA MARTÍNEZ : 1945 MR#: [id number] ADMIT: 04/28/2016 JOB ID: [id number] DATE: 05/10/2016 SUBJECTIVE: I spent 10 minutes both reviewing the treatment plan with the patient and providing educational psychotherapy. Although the patient reports feeling fine and ready for discharge, she does not remember the conversation we had the previous day. Both the staff and myself are concerned that she is continuing to have a relatively high level of paranoia, grandiose, and neurotic delusional content to her conversations. She repeated that she is to Dr. Borden and that he was coming to pick her up. She sees no reason for medications, as she does not believe that she has a mental illness at this time. Her sleep is poor, but she does deny medication side effects. She is not able to identify her medications, nor what they are used to treat. MENTAL STATUS: Client appeared unkept, was cooperative but very distractible. Her mood was labile, although she reports "I feel fine." Her thought process is tangential. Speech is pressured. Thought content significant for paranoid and suspicious themes, as well as perseveration and erotic delusions. She denies danger to self or others. She did appear to be responding to internal stimuli. He is alert and oriented to person and place, not date. Her memory, especially short-term, is impaired. Marked impairment in insight, judgment, and reality testing. IMPRESSION AND PLAN: Unchanged from May 09, 2016 note.
[2016-05-18 13:47] LABS: OCCULT BLOOD,URINE NEGATIVE (NEGATIVE); UROBILINOGEN,URINE NORMAL (NORMAL)
[2016-05-19] MEDS: Pantoprazole 40 mg ER24 Tablet PO SCH (07:42)
[2016-05-19] MEDS: Bacitracin Ointment Packet TOPICAL SCH ×3 (08:30→21:20)
[2016-05-19 11:09] VITALS: BP 140/63; PULSE 60; RESP 18
--- NOTE | 2016-05-19 13:26 | PCM.PNPSY ---
Subjective Date of Service May 19, 2016 Subjective I spent 30 minutes both reviewing treatment plan with the treatment team, evaluating Breanna in a one-to-one session, and providing educational psychotherapy. Breanna repeats feeling fine and ready for discharge. She does not remember the conversations we had yesterday. Both staff and myself have noticed continued paranoid grandiose and erotic delusional themes to her conversations. She believes again today that she is to Dr. Hi and that her has remarried. She is demanding discharge and stating that she is being held here against her will. Staff reports that she appears to the responding to internal stimuli when left alone. They describe her as being hyperverbal and that it is difficult to reason with her. She has very poor judgment and is unable to relate a coherent history. She slept 6.5 hours and denies depression or psychotic symptoms review. She denies medication side effects. Patient was not able to identify her medications but was aware of what they were used to treat. She appeared to understand the need for medications by the questions she asked during our discussion Current Medications Current Medications [place] Carbonate 450 mg HS PO Last administered on 05/18/16t 19:58; Admin Dose 450 MG; Start 05/17/16 at 21:00 Mental Status Exam Vital Signs Vital Signs Date Time Temp Pulse Resp B/P Pulse Ox O2 Delivery O2 Flow Rate FiO2 05/19/16 11:09 36.2 60 18 140/63 Appearance: Unkept Attitude: Guarded, Uncooperative Behavior: Distractible Affect: Labile Mood: Euphoric Thought Process/Associations: Tangential, Circumstantial Speech Production: Abundant Speech Rate: Pressured (mild) Speech Articulation: Normal Thought Content: Somatic preoccupation, Suspicious, Perseveration, Erotomanic Danger to Self/Suicidal Ideati: None Danger to Others: None Delusions: Paranoid (Endorses), Grandiose (Endorses) Hallucinations: Auditory (Endorses) Consciousness: Hyper-vigilant Orientation: Person, Place Memory: Short Term Memory (Impaired) Estimate Intellectual Function: Average Basis for IQ estimate: Word use/vocabulary, Educational history, Employment history Attention/Concentration & Cogn: Impaired Insight: Limited Judgement: Limited Result Diagram: 05/15/1682105/15/16821 Mental Health Plan The patient is a 71-year-old female who developed altered mental status for several days prior to admission. She remains in an acute manic state with significant disorganization of thought , poor judgment, poor insight and poor impulse control. At this point she is unable to remember events prior to admission suggesting a potential progressing neurocognitive disorder. She denies medication side effects at this time but will likely need up to stay additionals days for stabilization. Breanna is currently in the manic stage of bipolar mood disorder. When she was here recently she was in a depressed state for over 6 weeks. I believe she needs time on the current medications and the structure of our unit To reestablish emotional stability and reality based thinking. Over the past week she appeared to have worsening symptoms with increase of quetiapine and so was switched lurasidone. The patient was also quite tremulous and so lithium was decreased to 300 mg at bedtime. Although patient appears to have slept somewhat better she remains in a manic state and is more sexually focused. It appears that we will need to return her lithium level to 450 mg at bedtime. We will need to wait to determine whether to increase lurasidone to allow the medication to stabilize or begin the taper of quetiapine. [place] AXIS I: 1. Bipolar disorder, current episode, mixed with psychotic features. 2. Major neurocognitive disorder, unspecified, with dementia versus pseudodementia. AXIS II: Deferred. AXIS III: Urinary tract infection. See past medical history. AXIS IV: Unknown. AXIS V: Global Assessment of Functioning 30. Medications Quetiapine 200 mg nightly Latuda 40mg daily Eskalith 300 mg nightly Amlodipine 2.5 mg daily Pantoprazole 40 mg daily Clonazepam 0.5 mg nightly. zolpidem 5 mg nightly Treatments 1. The patient is admitted to the inpatient unit and will be provided a safe and secure environment. 2. The patient is denying current active suicidality and is not in need of a one-to-one at this time. 3. The patient is encouraged to participate with group and milieu activities. 4. The patient will be seen by the treatment team on a daily basis to assess symptoms, side effects and response to treatment. 5. lithium to 450 mg. 6. clonazepam to 0.5 mg twice daily 7. Continue zolpidem 5 mg nightly. 9. Continue quetiapine 200mg nightly and Latuda 40mg daily, consider tapering quetiapine if patient continues to appear disoriented. 10. Bactrim DS twice daily for 5 days, completed on 05/16/16, would recheck clean catch UA when more stable. 11. Anticipated length of stay is 10-14 days. Patient is currently on 14 day MRO but will likely need a longer period of inpatient stabilization. Gunner Palacios MD May 19, 2016 13:26
[2016-05-20] MEDS: Pantoprazole 40 mg ER24 Tablet PO SCH (07:50)
[2016-05-20] MEDS: Bacitracin Ointment Packet TOPICAL SCH ×3 (08:30→20:13)
[2016-05-20 12:26] VITALS: BP 125/69; PULSE 69; RESP 16
--- NOTE | 2016-05-20 12:30 | PCM.PNPSY ---
Subjective Date of Service May 20, 2016 Subjective I spent 30 minutes both reviewing treatment plan with the treatment team, evaluating Breanna and meeting with her and son for a family session. Breanna repeats feeling fine and ready for discharge. She does not remember the conversations we had yesterday. Both staff and myself have noticed continued paranoid grandiose and erotic delusional themes to her conversations. She believes again today that she is to Dr. Hi and that her has remarried. She is demanding discharge and stating that she is being held here against her will. Staff reports that she appears to the responding to internal stimuli when left alone. They describe her as being hyperverbal and that it is difficult to reason with her. She has very poor judgment and is unable to relate a coherent history. I am tending repeat the same theme every day but her condition is relatively unchanged. She slept 5.5 hours and denies depression or psychotic symptoms review. She denies medication side effects. Patient was not able to identify her medications but was aware of what they were used to treat. She appeared to understand the need for medications by the questions she asked during our discussion Mental Status Exam Vital Signs Vital Signs Date Time Temp Pulse Resp B/P Pulse Ox O2 Delivery O2 Flow Rate FiO2 05/20/16 12:26 36.0 69 16 125/69 Appearance: Unkept Attitude: Guarded, Uncooperative Behavior: Distractible Affect: Labile Mood: Euphoric Thought Process/Associations: Tangential, Circumstantial Speech Production: Abundant Speech Rate: Pressured (mild) Speech Articulation: Normal Thought Content: Somatic preoccupation, Suspicious, Perseveration, Erotomanic Danger to Self/Suicidal Ideati: None Danger to Others: None Delusions: Paranoid (Endorses), Grandiose (Endorses) Hallucinations: Auditory (Endorses) Consciousness: Hyper-vigilant Orientation: Person, Place Memory: Short Term Memory (Impaired) Estimate Intellectual Function: Average Basis for IQ estimate: Word use/vocabulary, Educational history, Employment history Attention/Concentration & Cogn: Impaired Insight: Limited Judgement: Limited Result Diagram: 05/15/1682105/15/16821 Mental Health Plan The patient is a 71-year-old female who developed altered mental status for several days prior to admission. She remains in an acute manic state with significant disorganization of thought , poor judgment, poor insight and poor impulse control. At this point she is unable to remember events prior to admission suggesting a potential progressing neurocognitive disorder. She denies medication side effects at this time but will likely need up to stay additionals days for stabilization. Breanna is currently in the manic stage of bipolar mood disorder. When she was here recently she was in a depressed state for over 6 weeks. I believe she needs time on the current medications and the structure of our unit To reestablish emotional stability and reality based thinking. Over the past week she appeared to have worsening symptoms with increase of quetiapine and so was switched lurasidone. The patient was also quite tremulous and so lithium was decreased to 300 mg at bedtime. Although patient appears to have slept somewhat better she remains in a manic state and is more sexually focused. It appears that we will need to return her lithium level to 450 mg at bedtime. We will need to wait to determine whether to increase lurasidone to allow the medication to stabilize or begin the taper of quetiapine. Breanna appears improved in her hygiene. She remains quite delusional but is easily redirected. [place] AXIS I: 1. Bipolar disorder, current episode, mixed with psychotic features. 2. Major neurocognitive disorder, unspecified, with dementia versus pseudodementia. AXIS II: Deferred. AXIS III: Urinary tract infection. See past medical history. AXIS IV: Unknown. AXIS V: Global Assessment of Functioning 30. Medications Quetiapine 200 mg nightly Latuda 40mg daily Eskalith 300 mg nightly Amlodipine 2.5 mg daily Pantoprazole 40 mg daily Clonazepam 0.5 mg nightly. zolpidem 5 mg nightly Treatments 1. The patient is admitted to the inpatient unit and will be provided a safe and secure environment. 2. The patient is denying current active suicidality and is not in need of a one-to-one at this time. 3. The patient is encouraged to participate with group and milieu activities. 4. The patient will be seen by the treatment team on a daily basis to assess symptoms, side effects and response to treatment. 5. lithium to 450 mg. 6. clonazepam to 0.5 mg twice daily 7. Continue zolpidem 5 mg nightly. 9. Continue quetiapine 200mg nightly and Latuda 40mg daily, consider tapering quetiapine if patient continues to appear disoriented. 10. Bactrim DS twice daily for 5 days, completed on 05/16/16, would recheck clean catch UA when more stable. 11. Anticipated length of stay is 10-14 days. Patient is currently on 14 day MRO but will likely need a longer period of inpatient stabilization. Gunner Palacios MD May 20, 2016 12:30
[2016-05-21] MEDS: Pantoprazole 40 mg ER24 Tablet PO SCH (07:57)
[2016-05-21] MEDS: Bacitracin Ointment Packet TOPICAL SCH ×3 (08:30→20:45)
--- NOTE | 2016-05-21 12:06 | PCM.PNPSY ---
Subjective Date of Service May 21, 2016 Subjective I spent 20 minutes both reviewing treatment plan with the treatment team, and evaluating Breanna. Breanna was irritable and frustrated with me today because she believes she is ready for discharge. She does not remember the conversations we had yesterday. She continues to demonstrate paranoid grandiose and erotic delusional themes to her conversations. She adamantly believes that she is to Dr. Hi and that her has remarried. She is demanding discharge and stating that she is being held here against her will. Staff reports that she appears to the responding to internal stimuli when left alone. They describe her as being hyperverbal and that it is difficult to reason with her. She has very poor judgment and is unable to relate a coherent history. I am tending repeat the same theme every day but her condition is relatively unchanged. She slept 6.75 hours and denies depression or psychotic symptoms review. She is showing extremely poor Insight and judgment. She denies medication side effects. Patient was not able to identify her medications but was aware of what they were used to treat. She appeared to understand the need for medications by the questions she asked during our discussion Mental Status Exam Appearance: Unkept Attitude: Guarded, Uncooperative Behavior: Distractible Affect: Labile Mood: Euphoric Thought Process/Associations: Tangential, Circumstantial Speech Production: Abundant Speech Rate: Pressured (mild) Speech Articulation: Normal Thought Content: Somatic preoccupation, Suspicious, Perseveration, Erotomanic Danger to Self/Suicidal Ideati: None Danger to Others: None Delusions: Paranoid (Endorses), Grandiose (Endorses) Hallucinations: Auditory (Endorses) Consciousness: Hyper-vigilant Orientation: Person, Place Memory: Short Term Memory (Impaired) Estimate Intellectual Function: Average Basis for IQ estimate: Word use/vocabulary, Educational history, Employment history Attention/Concentration & Cogn: Impaired Insight: Limited Judgement: Limited Result Diagram: 05/15/1682105/15/16821 Mental Health Plan The patient is a 71-year-old female who developed altered mental status for several days prior to admission. She remains in an acute manic state with significant disorganization of thought , poor judgment, poor insight and poor impulse control. At this point she is unable to remember events prior to admission suggesting a potential progressing neurocognitive disorder. She denies medication side effects at this time but will likely need up to stay additionals days for stabilization. Breanna is currently in the manic stage of bipolar mood disorder. When she was here recently she was in a depressed state for over 6 weeks. I believe she needs time on the current medications and the structure of our unit To reestablish emotional stability and reality based thinking. Over the past week she appeared to have worsening symptoms with increase of quetiapine and so was switched lurasidone. The patient was also quite tremulous and so lithium was decreased to 300 mg at bedtime. Although patient appears to have slept somewhat better she remains in a manic state and is more sexually focused. It appears that we will need to return her lithium level to 450 mg at bedtime. We will need to wait to determine whether to increase lurasidone to allow the medication to stabilize or begin the taper of quetiapine. Breanna appears improved in her hygiene. She remains quite delusional but is easily redirected. [place] AXIS I: 1. Bipolar disorder, current episode, mixed with psychotic features. 2. Major neurocognitive disorder, unspecified, with dementia versus pseudodementia. AXIS II: Deferred. AXIS III: Urinary tract infection. See past medical history. AXIS IV: Unknown. AXIS V: Global Assessment of Functioning 30. Medications discontinue Quetiapine 200 mg nightly Increase Latuda to 60mg daily Eskalith 300 mg nightly Amlodipine 2.5 mg daily Pantoprazole 40 mg daily Clonazepam 0.5 mg nightly. zolpidem 5 mg nightly Treatments 1. The patient is admitted to the inpatient unit and will be provided a safe and secure environment. 2. The patient is denying current active suicidality and is not in need of a one-to-one at this time. 3. The patient is encouraged to participate with group and milieu activities. 4. The patient will be seen by the treatment team on a daily basis to assess symptoms, side effects and response to treatment. 5. lithium to 450 mg. 6. clonazepam to 0.5 mg twice daily 7. Continue zolpidem 5 mg nightly. 9. Recommend tapering quetiapine and increasing Latuda to 60mg daily, consider tapering quetiapine if patient continues to appear disoriented. 10. Bactrim DS twice daily for 5 days, completed on 05/16/16, would recheck clean catch UA when more stable. 11. Anticipated length of stay is 10-14 days. Patient is currently on 14 day MRO but will likely need a longer period of inpatient stabilization. Gunner Palacios MD May 21, 2016 12:06
[2016-05-21 14:19] VITALS: BP 130/74; PULSE 68; RESP 16
[2016-05-22] MEDS: Pantoprazole 40 mg ER24 Tablet PO SCH (08:31)
[2016-05-22] MEDS: Bacitracin Ointment Packet TOPICAL SCH ×3 (08:31→20:28)
[2016-05-22 10:05] VITALS: BP 125/70; PULSE 65; RESP 16
--- NOTE | 2016-05-22 12:20 | PCM.PNPSY ---
Subjective Date of Service May 22, 2016 Subjective I spent 20 minutes both reviewing treatment plan with the treatment team, and evaluating Breanna. Breanna remains irritable and frustrated with me today because she believes she is ready for discharge. She struggles to remember the conversations we had yesterday. She continues to demonstrate paranoid grandiose and erotic delusional themes to her conversations but the intensity has decreased over the past 48 hours. Staff reports that she appears to the responding to internal stimuli when left alone and that it is difficult to reason with her. She has very poor judgment and is unable to relate a coherent history. She slept 3 hours but has had a decrease in the intensity of her psychotic symptoms since discontinuing Seroquel and increasing Latuda She denies medication side effects. Patient was not able to identify her medications but was aware of what they were used to treat. Current Medications Current Medications Amlodipine Besylate 2.5 mg DAILY PO Last administered on 05/22/16 11:40; Admin Dose 2.5 MG; Start 05/22/16 at 11:29 Lurasidone HCl 60 mg HS PO Last administered on 05/21/16 20:44; Admin Dose 60 MG; Start 05/21/16 at 21:00 Mental Status Exam Appearance: Neat/well groomed Attitude: Guarded Behavior: Distractible Affect: Well Modulated/Appropriate Mood: Irritable Thought Process/Associations: Tangential, Circumstantial Speech Production: Abundant Speech Rate: Normal Speech Articulation: Normal Thought Content: Somatic preoccupation, Suspicious, Perseveration, Erotomanic Danger to Self/Suicidal Ideati: None Danger to Others: None Delusions: Paranoid (Endorses), Grandiose (Endorses) Hallucinations: Auditory (Endorses) Consciousness: Hyper-vigilant Orientation: Person, Place Memory: Short Term Memory (Impaired) Estimate Intellectual Function: Average Basis for IQ estimate: Word use/vocabulary, Educational history, Employment history Attention/Concentration & Cogn: Impaired Insight: Limited Judgement: Limited Mental Health Plan The patient is a 71-year-old female who developed altered mental status for several days prior to admission. She remains in an acute manic state with significant disorganization of thought , poor judgment, poor insight and poor impulse control. At this point she is unable to remember events prior to admission suggesting a potential progressing neurocognitive disorder. Breanna is currently in the manic stage of bipolar mood disorder. When she was here recently she was in a depressed state for over 6 weeks. I believe she needs time on the current medications and the structure of our unit To reestablish emotional stability and reality based thinking. Over the past week she appeared to have worsening symptoms with increase of quetiapine and so was switched lurasidone. The patient was also quite tremulous and so lithium was decreased to 300 mg at bedtime. Although patient appears to have slept somewhat better she remains in a manic state and is more sexually focused. Breanna appears improved in her hygiene. She remains quite delusional but is easily redirected. [place] AXIS I: 1. Bipolar disorder, current episode, mixed with psychotic features. 2. Major neurocognitive disorder, unspecified, with dementia versus pseudodementia. AXIS II: Deferred. AXIS III: Urinary tract infection. See past medical history. AXIS IV: Unknown. AXIS V: Global Assessment of Functioning 35. Medications Increase Latuda to 80mg daily Eskalith 300 mg nightly Amlodipine 2.5 mg daily Pantoprazole 40 mg daily Change Clonazepam to 1 mg nightly. zolpidem 5 mg nightly Treatments 1. The patient is admitted to the inpatient unit and will be provided a safe and secure environment. 2. The patient is denying current active suicidality and is not in need of a one-to-one at this time. 3. The patient is encouraged to participate with group and milieu activities. 4. The patient will be seen by the treatment team on a daily basis to assess symptoms, side effects and response to treatment. 5. lithium to 450 mg. 6. clonazepam to 1 mg at bedtime 7. Continue zolpidem 5 mg nightly. 9. Anticipated length of stay is 7 additional days. Patient is currently on 14 day MRO but will likely need a longer period of inpatient stabilization. Gunner Palacios MD May 22, 2016 12:20 5. lithium to 450 mg. 6. clonazepam to 1 mg at bedtime 7. Continue zolpidem 5 mg nightly. 9. Anticipated length of stay is 7 additional days. Patient is currently on 14 day MRO but will likely need a longer period of inpatient stabilization. Gunner Palacios MD May 22, 2016 12:20
[2016-05-23] MEDS: Pantoprazole 40 mg ER24 Tablet PO SCH (08:12)
[2016-05-23] MEDS: Bacitracin Ointment Packet TOPICAL SCH ×3 (08:15→20:45)
[2016-05-23 13:15] VITALS: BP 125/77; PULSE 67; RESP 16
--- NOTE | 2016-05-23 16:10 | PCM.PNPSY ---
Subjective Date of Service May 23, 2016 Subjective I spent 20 minutes both reviewing treatment plan with the treatment team, and evaluating Breanna. Breanna remains irritable and frustrated with me today because she believes she is ready for discharge and is focused on Seroquel as the only medication she should take. She struggles to remember the conversations we had yesterday. She continues to demonstrate paranoid grandiose and erotic delusional themes to her conversations but the intensity has her currently decreased over the past 72 hours since increasing Latuda In decreasing her Seroquel. Staff reports that she does not appears to be responding to internal stimuli but that it is difficult to reason with her. She has very poor judgment and is unable to relate a coherent history. She slept 5.5 hours. She denies medication side effects. Patient was able to identify her medications. Current Medications Current Medications Amlodipine Besylate 2.5 mg DAILY PO Last administered on 05/23/16 08:13; Admin Dose 2.5 MG; Start 05/22/16 at 11:29 Clonazepam 1 mg HS PO Last administered on 05/22/16 20:28; Admin Dose 1 MG; Start 05/22/16 at 21:00 Lurasidone HCl 60 mg HS PO Last administered on 05/21/16 20:44; Admin Dose 60 MG; Start 05/21/16 at 21:00; Stop 05/22/16 at 12:22; Status DC Mental Status Exam Vital Signs Vital Signs Date Time Temp Pulse Resp B/P Pulse Ox O2 Delivery O2 Flow Rate FiO2 05/23/16 13:15 36.2 67 16 125/77 Appearance: Neat/well groomed Attitude: Guarded Behavior: Distractible Affect: Well Modulated/Appropriate Mood: Irritable Thought Process/Associations: Goal Directed, Tangential Speech Production: Normal Speech Rate: Normal Speech Articulation: Normal Thought Content: Somatic preoccupation, Perseveration, Erotomanic Danger to Self/Suicidal Ideati: None Danger to Others: None Delusions: Grandiose (Endorses) Consciousness: Alert Orientation: Person, Place, Situation Memory: Short Term Memory (Impaired) Estimate Intellectual Function: Average Basis for IQ estimate: Awareness current events, Word use/vocabulary, Educational history, Employment history Attention/Concentration & Cogn: Impaired Insight: Limited Judgement: Limited Mental Health Plan The patient is a 71-year-old female who developed altered mental status for several days prior to admission. She remains in an acute manic state with significant disorganization of thought , poor judgment, poor insight and poor impulse control. At this point she is unable to remember events prior to admission suggesting a potential progressing neurocognitive disorder. Breanna is currently in the manic stage of bipolar mood disorder. When she was here recently she was in a depressed state for over 6 weeks. I believe she needs time on the current medications and the structure of our unit To reestablish emotional stability and reality based thinking. Over the past week she appeared to have worsening symptoms with increase of quetiapine and so was switched lurasidone. The patient was also quite tremulous and so lithium was decreased to 300 mg at bedtime. Over this past week she seems to have developed a rash since increasing her lithium. She appears to be responding well To that discontinuing of Seroquel and the addition of latuda. She is very focused on the Seroquel so I will Add a small dose at night to see if this will help her with sleep. [place] AXIS I: 1. Bipolar disorder, current episode, mixed with psychotic features. 2. Major neurocognitive disorder, unspecified, with dementia versus pseudodementia. AXIS II: Deferred. AXIS III: Urinary tract infection. See past medical history. AXIS IV: Unknown. AXIS V: Global Assessment of Functioning 35. Medications Increase Latuda to 80mg daily Eskalith 300 mg nightly Amlodipine 2.5 mg daily Pantoprazole 40 mg daily Clonazepam to 1 mg nightly. zolpidem 5 mg nightly Treatments 1. The patient is admitted to the inpatient unit and will be provided a safe and secure environment. 2. The patient is denying current active suicidality and is not in need of a one-to-one at this time. 3. The patient is encouraged to participate with group and milieu activities. 4. The patient will be seen by the treatment team on a daily basis to assess symptoms, side effects and response to treatment. 5. lithium to 450 mg. 6. clonazepam to 1 mg at bedtime 7. Continue zolpidem 5 mg nightly. 8. Add Seroquel 25 mg at bedtime 9. Anticipated length of stay is 7 additional days. Patient is currently on 14 day MRO but will likely need a longer period of inpatient stabilization. Gunner Palacios MD May 23, 2016 16:10
[2016-05-24] MEDS: Pantoprazole 40 mg ER24 Tablet PO SCH (07:31)
[2016-05-24 08:16] VITALS: BP 119/64; PULSE 65; RESP 18
[2016-05-24] MEDS: Bacitracin Ointment Packet TOPICAL SCH (10:03)
--- NOTE | 2016-05-24 11:28 | PCM.PNPSY ---
Subjective Date of Service May 24, 2016 Subjective I spent 20 minutes both reviewing treatment plan with the treatment team, and evaluating Breanna. Breanna remains irritable and frustrated with me today because she believes she is ready for discharge and is focused on Seroquel as the only medication she should take. She struggles to remember the conversations we had yesterday. She continues to demonstrate paranoid grandiose and erotic delusional themes to her conversations but the intensity has her currently decreased over the past 72 hours since increasing Latuda and decreasing her Seroquel. Staff reports that she does not appears to be responding to internal stimuli but that it is difficult to reason with her. She has very poor judgment and is unable to relate a coherent history. She slept attentively well again staff reporting 6 solid hours with current medication regimen. She denies medication side effects but continues to have a rash on her chin. I have asked for a dermatology consult and notified Breanna that this will occur within the next several days. The intensity of the rash did seem to decrease when I decreased her lithium. Patient was able to identify her medications. Current Medications Current Medications Amlodipine Besylate 2.5 mg DAILY PO Last administered on 05/24/16 07:30; Admin Dose 2.5 MG; Start 05/22/16 at 11:29 Clonazepam 1 mg HS PO Last administered on 05/23/16 20:44; Admin Dose 1 MG; Start 05/22/16 at 21:00 [place] Carbonate 300 mg BID PO Last administered on 05/24/16 07:30; Admin Dose 300 MG; Start 05/23/16 at 20:30 Quetiapine Fumarate 25 mg HS PO Last administered on 05/23/16 20:44; Admin Dose 25 MG; Start 05/23/16 at 21:00 Mental Status Exam Vital Signs Vital Signs Date Time Temp Pulse Resp B/P Pulse Ox O2 Delivery O2 Flow Rate FiO2 05/24/16 08:16 36.4 65 18 119/64 Appearance: Neat/well groomed Attitude: Pleasant, Guarded Behavior: Distractible Affect: Labile Mood: Irritable, Dysthymic Thought Process/Associations: Goal Directed, Tangential Speech Production: Normal Speech Rate: Normal Speech Articulation: Normal Thought Content: Somatic preoccupation, Perseveration, Erotomanic Danger to Self/Suicidal Ideati: None Danger to Others: None Delusions: Grandiose (Endorses), Other (erotic themes around marriage to Dr. Borden) Consciousness: Alert Orientation: Person, Place, Situation Memory: Short Term Memory (Impaired) Estimate Intellectual Function: Average Basis for IQ estimate: Awareness current events, Word use/vocabulary, Educational history, Employment history Attention/Concentration & Cogn: Impaired Insight: Limited Judgement: Limited Mental Health Plan The patient is a 71-year-old female who developed altered mental status for several days prior to admission. She remains in an acute manic state with significant disorganization of thought , poor judgment, poor insight and poor impulse control. At this point she is unable to remember events prior to admission suggesting a potential progressing neurocognitive disorder. Breanna is currently in the manic stage of bipolar mood disorder. When she was here recently she was in a depressed state for over 6 weeks. I believe she needs time on the current medications and the structure of our unit To reestablish emotional stability and reality based thinking. Over the past week she appeared to have worsening symptoms with increase of quetiapine and so was switched lurasidone. The patient was also quite tremulous and so lithium was decreased to 300 mg at bedtime. She appears to be responding well to that discontinuing of Seroquel and the addition of latuda. She has slept relatively well for the past 2 nights. She appears to be making slow but gradual progress towards stability of mood and thought organization. [place] AXIS I: 1. Bipolar disorder, current episode, mixed with psychotic features. 2. Major neurocognitive disorder, unspecified, with dementia versus pseudodementia. AXIS II: Deferred. AXIS III: Urinary tract infection. See past medical history. AXIS IV: Unknown. AXIS V: Global Assessment of Functioning 35. Treatments Patient is being provided with a high degree of safety through the structure and active adult engagement. We will focus on developing improved coping skills and identifying stressors that may have led to current episode. We will attempt to: Integrate into therapeutic groups, milieu and individual therapy. Maintain in a closely monitored and structured unit Provide low-stimulation environment Obtain collateral data to assist in treatment planning Assess degree of lability of affect and impulse control Decrease frequency of relapse and need for re-hospitalization Establish a consistent sleep pattern Medication effective in stabilization of mood and/or thought process Reduce the risk of imminent harm to self and/or others by providing a safe environment Tolerates medication without side effects Patient will be on the following psychiatric medications: Latuda to 80mg daily Eskalith 300 mg nightly Amlodipine 2.5 mg daily Pantoprazole 40 mg daily Clonazepam to 1 mg nightly. zolpidem 5 mg nightly Seroquel 25 mg at bedtime Labs: [place] level to be checked for 05/08 AM Address patient's legal status Patient is currently on 14 day MRO but will likely need a longer period of inpatient stabilization. Disposition: Home Gunner Palacios MD May 24, 2016 11:28 Gunner Palacios MD May 24, 2016 11:28
--- NOTE | 2016-05-24 15:02 | PCM.CHPMED ---
Subjective Date of Service: May 24, 2016 Primary Physician: Admitting Physician: Nicky Mays Primary Care Physician: Jose Antonio Peñaloza MD Attending Physician: Nicky Mays Chief Complaint: Chief Complaint: Skin rash History of Present Illness: Patient admitted for bipolar and medical management in the behavioral health unit. She developed a rash on her face and hands several days ago. The rash is not itchy. No recent sun exposure. She notes no history of rash except once when her lithium brand was changed. She believes the formulation here was the wrong one and the rash relates to it. She also has a H/O allergies and asthma which had improved about 10 years ago. No recent allergic problems including dyspnea. Review of Systems: Constitutional: Denies: Chills, Fever Eyes: Denies: Blurred Vision ENT: Denies: Ear Discharge, Nose Pain Neck: Denies: Pain Cardiovascular: Reports: Edema, Denies: Chest Pain, Palpitations Respiratory: Denies: Cough, SOB with Exertion, Shortness of Breath Gastrointestinal: Denies: Abdominal Pain Genitourinary: Denies: Hematuria, Nocturia Musculoskeletal: Denies: Back Pain Skin: Reports: Rash, Denies: Bruising Neurological: Denies: Confusion, Seizures Psychologic: Reports: Anxiety, Insomnia, Denies: Agitation, Depression Endocrine: Reports: Abnormal Hair Growth, Denies: Diaphoresis Hematologic: Denies: Bruising Lymphatic: Denies: Swollen Lymph Nodes in Neck PMH Past Medical History 1. Bipolar 2. Remote asthma 3. Allergic rhinitis Cardiovascular History: Denies:: Atrial Fibrillation Respiratory History: Positive for:: Asthma Gastrointestinal History: Denies: Cirrhosis Diverticulitis Neurological History: Denies: Alzheimer's Disease CVA Dementia Musculoskeletal History: Denies: Back Injury Psycho Social History: Positive for:: Anxiety Bipolar Disorder Skin History: Positive for:: History Skin Disorders? Hematic/Lymphatic/Neoplastic: Denies: Anemia Hx Any Other Health Problems?: NoHx Diabetes: No Home Medications See MAR Allergies: Coded Allergies: chlorpromazine (Verified Allergy, Severe, 02/07/16) codeine (Verified Allergy, Severe, 02/07/16) olanzapine (Verified Allergy, Severe, 02/07/16) sulindac (Verified Allergy, Severe, Rash, 02/07/16) Family History Family History Positive for asthma Social History Hx Alcohol Use: NoHx Substance Use: NoHx Tobacco Use: No Smoking Status: Never Smoker Living Arrangement: with Family Exam Vital Signs Vital Sign - Last Date Time Temp Pulse Resp B/P Pulse Ox O2 Delivery O2 Flow Rate FiO2 05/24/16 08:16 36.4 65 18 119/64 General: Alert, Oriented X3, Cooperative, No Acute Distress Head: Normal, Facial Expression & Appearance Eyes: PERRLA, EOMI, Scleral Anicteric Mouth: Mouth Normal Neck: Supple, No Thyromegaly Chest & Lungs: Chest Wall Normal, Clear to auscultation & percussion, No adventitious breath sounds Back, Sacral Area and Buttocks: Normal Cardiovascular: Exam Unremarkable Pulses: NL carotid, radial, femoral, DP, PT Abdomen: Non-tender, Non-distended Musculoskeletal: Unremarkable, Normal Range of Motion Extremities: No cyanosis/clubbing/edma bilat Skin: Other (face red around mouth and cheeks, confluent erythema, no blisters or welts. ) Neurological: Grossly Neurologically Intact Assessment & Plan Assessment 1. Possible drug induced facial rash, start bacitracin and use hydrocortisone 1 % BID. She has been switched to [place] brand [place]. 2. Bipolar, medical management per Dr Palacios Problems: Pain Evaluation: Adequate Pain Control Time spent 35 minutes Raleigh Darling MD May 24, 2016 15:02
[2016-05-25] MEDS: Pantoprazole 40 mg ER24 Tablet PO SCH (07:58)
[2016-05-25 10:40] VITALS: BP 147/82; PULSE 82; RESP 16
--- NOTE | 2016-05-25 17:00 | DRSVH ---
PROCEDURE: US VEINOUS LEG DUPLEX UNILATERAL, LEFT INDICATIONS: R/O DVT TECHNIQUE: Real-time imaging, as well as color and pulse Doppler interrogation, were performed of the lower extr emity deep veins from the inguinal ligament to the popliteal fossa. COMPARISON: None. FINDINGS: The deep veins are normally compressible, and free of intraluminal thrombus. Color and pu lse Doppler demonstrate normal phasic intraluminal flow. There is normal augmentation response to di stal compression maneuver. IMPRESSION: No evidence of left lower extremity DVT. Dictated by: Dionicio Huber M.D. on 05/25/2016 at 16:59 Approved by: Dionicio Huber M.D. on 05/25/2016 at 16:59
--- NOTE | 2016-05-25 21:19 | PCM.PNMED ---
Subjective Date of Service May 25, 2016 Subjective Patient is seen and examined. She is talking incessantly, somewhat anxious personality. 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 She is concerned about her leg swelling especially in her left leg. She is wondering if she will need Lasix. She also feels that her rash is somewhat improved over her face. She thinks Dr. Alin Darling and the canceling machine operator. She also demands to see her PCP Dr. Ayana campbell and Dr. Lewis in the psych unit Exam Vital Signs Vital Sign - Last Date Time Temp Pulse Resp B/P Pulse Ox O2 Delivery O2 Flow Rate FiO2 05/24/16 08:16 36.4 65 18 119/64 Exam Gen.: Mildly anxious rapid speech HEENT: Normocephalic, atraumatic Skin: Malodor rash over face and nose rash over hands that is milder Heart: Grade 1+ murmur prominent over aortic area with radiation to neck, regular rate and rhythm Lungs: Clear to auscultation bilaterally Abdomen soft nondistended Extremities: Left extremity edema greater than right extremity Psych: Mildly anxious Neuro: No focal deficits IVs and Medications IV Fluids None Medications Reviewed: Medications were reviewed in detail Assessment & Plan This is a 71-year-old female with history of remote asthma bipolar disorder, arthritis, tardive dyskinesia, GERD, heart murmur she is currently in the psych unit for bipolar disorder her medications are believed to cause a rash over her face for which hospitalist team is consulted. Alin Darling has visited with the patient and has given her hydrocortisone ointment, bacitracin. She is endorsing mild relief with these medications. Her psych medications have been switched to address this. Acute diagnoses assessment #1 rash likely due to drug reaction versus allergic reaction patient does have a tendency to have allergic rhinitis and also asthma. Added Zantac medication for H2 blockade she is already in hydroxyzine . We will consider prednisone if she has no relief of symptoms Acute diagnoses #2 left leg swelling: This seems to be of distress the patient, will order a DVT ultrasound. Switch him over to find to hydrochlorothiazide 12.5 mg daily to help with swelling Chronic diagnoses Bipolar disorder: Her psych primary team GERD: Continue PPI Hypertension: Switched her to hydrochlorothiazide 12 mg as above GI Prophylaxis: H2 shazia, Proton Pump Inhibitor Mariann Tyler DO May 25, 2016 05:55
--- NOTE | 2016-05-25 21:41 | PCM.PNPSY ---
Subjective Date of Service May 25, 2016 Subjective The patient was concerned about not having quetiapine at bedtime to help her sleep. Patient had no reported recollection of having significant auditory hallucinations as of last week. Patient reported stopping lurasidone due to tremor. Patient declined melatonin to assist with insomnia. Sleep: 6+ hours per staff, poor per patient. Appetite: good Suicidal and homicidal ideation: denies Auditory hallucinations/Visual hallucinations: denies Other Psychotic Symptoms: some thought disorganization Anxiety: "fine" Depression: denies Current Medications Current Medications Famotidine 20 mg DAILY PO Last administered on 05/25/16 17:23; Admin Dose 20 MG ; Start 05/25/16 at 16:10 Hydrocortisone 1 applic BID PRN TOPICAL Last administered on 05/25/16 08:00; Admin Dose 1 APPLIC; Start 05/24/16 at 14:50 [place] Carbonate 300 mg HS PO Last administered on 05/25/16 19:07; Admin Dose 300 MG; Start 05/25/16 at 19:30 Quetiapine Fumarate 100 mg HS PO Last administered on 05/25/16 21:32; Admin Dose 100 MG; Start 05/25/16 at 21:00 Mental Status Exam Appearance: Neat/well groomed Attitude: Pleasant, Cooperative Behavior: Distractible Affect: Well Modulated/Appropriate Mood: Irritable, Dysthymic Thought Process/Associations: Goal Directed, Tangential (at times) Speech Production: Normal Speech Rate: Normal Speech Articulation: Normal Thought Content: Somatic preoccupation, Perseveration, Erotomanic Danger to Self/Suicidal Ideati: None Danger to Others: None Delusions: Grandiose (Endorses), Other (erotic themes around marriage to Dr. Borden) Hallucinations: Auditory (Denies), Visual (Denies) Consciousness: Alert Orientation: Person, Place, Situation Memory: Short Term Memory (Impaired) Estimate Intellectual Function: Average Basis for IQ estimate: Awareness current events, Word use/vocabulary, Educational history, Employment history Attention/Concentration & Cogn: Impaired Insight: Limited Judgement: Limited Mental Health Plan The patient is a 71-year-old female who has been medication adherent, but has developed altered mental status over the last few days prior to admission. The urinalysis was significant for urinary tract infection which could have explained the patient's abnormal mental status, but subsequent urinalysis indicated the infection had been treated yet the patient remained psychotic. The patient also could have a progressing neurocognitive disorder worsening her psychiatric symptoms. Given the patient's family history of a half-sister with Alzheimer's disease, when she is more stable a further mental status examination should be accomplished. Her lithium level was 0.7 on 04/29/2016 as well as the subsequent follow-up lithium level, so it would be unusual for her to be lithium toxic. The patient appeared to have worsening symptoms with increase of quetiapine and so was switched lurasidone. The patient was also quite tremulous and so lithium was decreased to 300 mg at bedtime. The patient stopped taking lurasidone after 05/21, but up to that point had been taking quetiapine 200mg nightly which was subsequently reduced to 25mg. Given the amount of time elapsed, the patient may respond to 100mg quetiapine rather than 150mg dose prior to admission. [place] AXIS I: 1. Bipolar disorder, current episode, mixed with psychotic features. 2. Major neurocognitive disorder, unspecified, appears to be improving. AXIS II: Deferred. AXIS III: Urinary tract infection resolved. See past medical history. AXIS IV: Moderate. AXIS V: Global Assessment of Functioning 35. Medications Lithobid 300mg nightly Quetiapine 25mg nightly Latuda 80mg nightly (refusing) Clonazepam 1mg nightly Treatments 1. The patient is admitted to the inpatient unit and will be provided a safe and secure environment. 2. The patient is denying current active suicidality and is not in need of a one-to-one at this time. 3. The patient is encouraged to participate with group and milieu activities. 4. The patient will be seen by the treatment team on a daily basis to assess symptoms, side effects and response to treatment. 5. Continue lithium 300 mg. 6. Consider decreasing clonazepam to 0.5 mg nightly 7. Increase quetiapine to 100mg nightly and discontinue Latuda. 8. Anticipated length of stay is 5-7 days. Lester Cruz MD May 25, 2016 21:41 Patient will be on the following psychiatric medications: Latuda to 80mg daily Eskalith 300 mg nightly Amlodipine 2.5 mg daily Pantoprazole 40 mg daily Clonazepam to 1 mg nightly. zolpidem 5 mg nightly Seroquel 25 mg at bedtime Labs: [place] level to be checked for 05/08 AM Address patient's legal status Patient is currently on 14 day MRO but will likely need a longer period of inpatient stabilization. Disposition: Home Lester Cruz MD May 25, 2016 21:41
[2016-05-26] MEDS: Pantoprazole 40 mg ER24 Tablet PO SCH (08:17)
[2016-05-26 09:00] VITALS: BP 149/73; PULSE 82; RESP 16
[2016-05-26 13:10] LABS: APPEARANCE,URINE CLEAR (CLEAR,HAZY); COLOR,URINE STRAW (YELLOW)
[2016-05-26 13:11] LABS: OCCULT BLOOD,URINE NEGATIVE (NEGATIVE); PH,URINE 5.5 (5.0-8.0); UROBILINOGEN,URINE NORMAL (NORMAL)
--- NOTE | 2016-05-26 13:32 | PCM.PNMED ---
Subjective Date of Service May 26, 2016 Subjective No complaints, believes rash improving, no chest pain or shortness of breath overnight. States she believes her lower extremity swelling is improving mildly as well, discussed negative DVT ultrasound results Exam Vital Signs Vital Sign - Last Date Time Temp Pulse Resp B/P Pulse Ox O2 Delivery O2 Flow Rate FiO2 05/25/16 10:40 36.4 82 16 147/82 Exam Gen.: Pleasant, mildly pressured speech, alert HEENT: Normocephalic, atraumatic Skin: Mild Malar rash over face and nose rash over hands that is milder, nontender to palpation, no exudate Heart: Grade 1+ murmur prominent over aortic area with radiation to neck, regular rate and rhythm Lungs: Clear to auscultation bilaterally Abdomen soft nondistended Extremities: 1+ Left extremity edema greater than right extremity Psych: Normal affect, normal mood Neuro: No focal deficits IVs and Medications Medications Reviewed: Medications were reviewed in detail Assessment & Plan This is a 71-year-old female with history of remote asthma bipolar disorder, arthritis, tardive dyskinesia, GERD, heart murmur she is currently in the psych unit for bipolar disorder her medications are believed to cause a rash over her face for which hospitalist team is consulted. -Dr Darling has visited with the patient and has given her hydrocortisone ointment, bacitracin. Clinically improving with this treatment. Her psych medications have been switched to address this. Acute diagnoses assessment #1 rash likely due to drug reaction versus allergic reaction patient does have a tendency to have allergic rhinitis and also asthma. Added H2 blockade she is already in hydroxyzine, we will discontinue Protonix to avoid duplicate therapy. - Anticipate improvement over next 2 days, if no improvement can still consider prednisone if she has no relief of symptoms #2 left leg swelling: Negative DVT ultrasound on 05/25, likely related to venous insufficiency. Started hydrochlorothiazide 12.5 mg daily with mild clinical improvement, continue to monitor Chronic diagnoses Bipolar disorder: Her psych primary team GERD: Continue PPI Hypertension: Switched her to hydrochlorothiazide 12 mg as above GI Prophylaxis: H2 shazia, Proton Pump Inhibitor Time spent 30 minutes spent with evaluation and management Marcus Mccann DO May 26, 2016 13:32
--- NOTE | 2016-05-26 21:56 | PCM.PNPSY ---
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 Although denying auditory hallucinations with the treatment team , when the door is closed she is heard to be conversing with one of her sons without using a phone. The patient reports being calmer and wanting to return home to live with her . Sleep: 7+ hours per staff, good per patient. Appetite: "too good' Suicidal and homicidal ideation: denies Auditory hallucinations/Visual hallucinations: denies Other Psychotic Symptoms: some thought disorganization, responding to hallucinations as above Anxiety: 0/10 Depression: 0/10 Current Medications Current Medications Famotidine 20 mg DAILY PO Last administered on 05/26/16 08:17; Admin Dose 20 MG ; Start 05/25/16 at 16:10; Stop 05/26/16 at 13:31; Status DC Hydrochlorothiazide 12.5 mg DAILY PO Last administered on 05/26/16 08:17; Admin Dose 12.5 MG; Start 05/26/16 at 08:30 [place] Carbonate 300 mg HS PO Last administered on 05/26/16 20:18; Admin Dose 300 MG; Start 05/25/16 at 19:30 Quetiapine Fumarate 100 mg HS PO Last administered on 05/26/16 20:18; Admin Dose 100 MG; Start 05/25/16 at 21:00 Mental Status Exam Vital Signs Vital Signs Date Time Temp Pulse Resp B/P Pulse Ox O2 Delivery O2 Flow Rate FiO2 05/26/16 14:23 36.6 Appearance: Neat/well groomed Attitude: Pleasant, Cooperative Behavior: Distractible Affect: Well Modulated/Appropriate Mood: Dysthymic Thought Process/Associations: Goal Directed, Tangential (at times) Speech Production: Normal Speech Rate: Normal Speech Articulation: Normal Thought Content: Somatic preoccupation, Perseveration Danger to Self/Suicidal Ideati: None Danger to Others: None Delusions: Grandiose (Endorses) Hallucinations: Auditory (Denies, but is responding to conversation with unseen others), Visual (Denies) Consciousness: Alert Orientation: Person, Place, Situation Memory: Short Term Memory (Impaired) Estimate Intellectual Function: Average Basis for IQ estimate: Awareness current events, Word use/vocabulary, Educational history, Employment history Attention/Concentration & Cogn: Impaired Insight: Limited Judgement: Limited Mental Health Plan The patient is a 71-year-old female who has been medication adherent, but has developed altered mental status over the last few days prior to admission. The urinalysis was significant for urinary tract infection which could have explained the patient's abnormal mental status, but subsequent urinalysis indicated the infection had been treated yet the patient remained psychotic. The patient also could have a progressing neurocognitive disorder worsening her psychiatric symptoms. Given the patient's family history of a half-sister with Alzheimer's disease, when she is more stable a further mental status examination should be accomplished. Her lithium level was 0.7 on 04/29/2016 as well as the subsequent follow-up lithium level, so it would be unusual for her to be lithium toxic. The patient appeared to have worsening symptoms with increase of quetiapine and so was switched lurasidone. The patient was also quite tremulous and so lithium was decreased to 300 mg at bedtime. The patient stopped taking lurasidone after 05/21, but up to that point had been taking quetiapine 200mg nightly which was subsequently reduced to 25mg. Given the amount of time elapsed, the patient may respond to 100mg quetiapine rather than 150mg dose prior to admission. Follow-up lithium level 0.3. Although she is still responding to hallucinations, she is showing enough judgment to do it in private and appears to be making some improvement. [place] AXIS I: 1. Bipolar disorder, current episode, mixed with psychotic features. 2. Major neurocognitive disorder, unspecified, appears to be improving. AXIS II: Deferred. AXIS III: Urinary tract infection resolved. See past medical history. AXIS IV: Moderate. AXIS V: Global Assessment of Functioning 35. Medications Lithobid 300mg nightly Quetiapine 100mg nightly Clonazepam 1mg nightly Treatments 1. The patient is admitted to the inpatient unit and will be provided a safe and secure environment. 2. The patient is denying current active suicidality and is not in need of a one-to-one at this time. 3. The patient is encouraged to participate with group and milieu activities. 4. The patient will be seen by the treatment team on a daily basis to assess symptoms, side effects and response to treatment. 5. Continue lithium 300 mg. 6. Consider decreasing clonazepam to 0.5 mg nightly 7. Continue quetiapine 100mg nightly. 8. Anticipated length of stay is 7-10 days. Lester Cruz MD May 26, 2016 21:56
--- NOTE | 2016-05-27 07:11 | PCM.PNMED ---
Subjective Date of Service May 27, 2016 Subjective no acute events overnight - no reports of cp/sob/f/c Exam Vital Signs Vital Sign - Last Date Time Temp Pulse Resp B/P Pulse Ox O2 Delivery O2 Flow Rate FiO2 05/26/16 14:23 36.6 05/26/16 09:00 82 16 149/73 Exam Gen.: Pleasant, mildly pressured speech, alert HEENT: Normocephalic, atraumatic Skin: Mild Malar rash over face and nose rash over hands that is milder, nontender to palpation, no exudate Heart: Grade 1+ murmur prominent over aortic area with radiation to neck, regular rate and rhythm Lungs: Clear to auscultation bilaterally Abdomen soft nondistended Extremities: 1+ Left extremity edema greater than right extremity Psych: Normal affect, normal mood Neuro: No focal deficits IVs and Medications Medications Reviewed: Medications were reviewed in detail Assessment & Plan 71-year-old female with history of remote asthma bipolar disorder, arthritis, tardive dyskinesia, GERD, heart murmur she is currently in the psych unit for bipolar disorder her medications are believed to cause a rash over her face for which hospitalist team is consulted. -Dr Darling has visited with the patient and has given her hydrocortisone ointment, bacitracin. Clinically improving with this treatment. Her psych medications have been switched to address this. Acute diagnoses assessment #1 rash likely due to drug reaction versus allergic reaction patient does have a tendency to have allergic rhinitis and also asthma. cont H2 blockade ( renally dosed) she is already in hydroxyzine, discontinued Protonix to avoid duplicate therapy. - Anticipate improvement over next 2 days, if no improvement can still consider prednisone if she has no relief of symptoms #2 left leg swelling: Negative DVT ultrasound on 05/25, likely related to venous insufficiency. Started hydrochlorothiazide 12.5 mg daily with mild clinical improvement, continue to monitor Chronic diagnoses Bipolar disorder: Her psych primary team GERD: Continue PPI Hypertension: Switched her to hydrochlorothiazide 12 mg as above GI Prophylaxis: H2 shazia, Proton Pump Inhibitor Time spent 30 minutes spent with erin and Marcus Perry DO May 27, 2016 07:11
[2016-05-27 08:00] VITALS: BP 154/74; PULSE 87; RESP 20
[2016-05-27] MEDS ORDERED: Magnesium Hydroxide 355 mL Oral Suspension PO PRN (09:55)
--- NOTE | 2016-05-27 22:24 | PCM.PNPSY ---
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 She also stated that she was going to [place] because they were not giving her Beatriz brand lithium. During the interview, she turned to the side and began talking to her son, Julian, who was not present. She stated that he just told her that he would be present for her hearing and represent her. She also stated that her was sick and would not be coming (he subsequently arrived and was not sick.) We discussed obtaining an MRI of the brain for assessment of possible neurocognitive disorder, but the patient refused as, "I' m going home today." Sleep: 6.5+ hours per staff, good per patient. Appetite: "Excellent" Suicidal and homicidal ideation: denies Auditory hallucinations/Visual hallucinations: denies (see above) Other Psychotic Symptoms: some thought disorganization, responding to hallucinations as above Anxiety: 0/10 Depression: 0/10 Current Medications Current Medications Acetaminophen 650 mg Q4 PRN PO Last administered on 05/27/16 15:18; Admin Dose 650 MG; Start 05/27/16 at 09:55 Ciprofloxacin 500 mg DAILY PO Last administered on 05/27/16 20:30; Admin Dose 500 MG; Start 05/27/16 at 15:20 Famotidine 20 mg DAILY PO Last administered on 05/27/16 07:54; Admin Dose 20 MG ; Start 05/27/16 at 08:30 Hydrochlorothiazide 12.5 mg DAILY PO Last administered on 05/27/16 07:54; Admin Dose 12.5 MG; Start 05/26/16 at 08:30 [place] Carbonate 150 mg BID PO Last administered on 05/27/16 20:33; Admin Dose 150 MG; Start 05/27/16 at 20:30 Mental Status Exam Appearance: Neat/well groomed Attitude: Pleasant, Cooperative Behavior: Distractible Affect: Well Modulated/Appropriate Mood: Dysthymic Thought Process/Associations: Goal Directed, Tangential (at times) Speech Production: Normal Speech Rate: Normal Speech Articulation: Normal Thought Content: Somatic preoccupation, Perseveration Danger to Self/Suicidal Ideati: None Danger to Others: None Delusions: Paranoid (Endorses) Hallucinations: Auditory (Denies, but is responding to conversation with unseen others), Visual (Denies) Consciousness: Alert Orientation: Person, Place, Situation Memory: Short Term Memory (Impaired) Estimate Intellectual Function: Average Basis for IQ estimate: Awareness current events, Word use/vocabulary, Educational history, Employment history Attention/Concentration & Cogn: Impaired Insight: Limited Judgement: Limited Mental Health Plan The patient is a 71-year-old female who has been medication adherent, but has developed altered mental status over the last few days prior to admission. The urinalysis was significant for urinary tract infection which could have explained the patient's abnormal mental status, but subsequent urinalysis indicated the infection had been treated yet the patient remained psychotic. The patient also could have a progressing neurocognitive disorder worsening her psychiatric symptoms. Given the patient's family history of a half-sister with Alzheimer's disease, when she is more stable a further mental status examination should be accomplished. Her lithium level was 0.7 on 04/29/2016 as well as the subsequent follow-up lithium level, so it would be unusual for her to be lithium toxic. The patient appeared to have worsening symptoms with increase of quetiapine and so was switched lurasidone. The patient was also quite tremulous and so lithium was decreased to 300 mg at bedtime. The patient stopped taking lurasidone after 05/21, but up to that point had been taking quetiapine 200mg nightly which was subsequently reduced to 25mg. Given the amount of time elapsed, the patient may respond to 100mg quetiapine rather than 150mg dose prior to admission. Follow-up lithium level 0.3. As this level of psychosis is a relatively new symptom for this patient, discussed with patient' s that neurocognitive disorder of some type may be playing a role and an MRI/CT would help to assess whether volume loss has occurred; he was in agreement. According to [facility], there is no ADR or allergy regarding lithium, but she has [facility]. [place] AXIS I: 1. Bipolar disorder, current episode, mixed with psychotic features. 2. Major neurocognitive disorder, unspecified, appears to be improving. AXIS II: Deferred. AXIS III: Urinary tract infection resolved. See past medical history. AXIS IV: Moderate. AXIS V: Global Assessment of Functioning 35. Medications Lithobid 300mg nightly Quetiapine 100mg nightly Clonazepam 1mg nightly Treatments 1. The patient is admitted to the inpatient unit and will be provided a safe and secure environment. 2. The patient is denying current active suicidality and is not in need of a one-to-one at this time. 3. The patient is encouraged to participate with group and milieu activities. 4. The patient will be seen by the treatment team on a daily basis to assess symptoms, side effects and response to treatment. 5. [facility] will be changed to lithium carbonate 150mg twice daily (Beatriz brand). 6. Consider decreasing clonazepam to 0.5 mg nightly 7. Continue quetiapine 100mg nightly. 8. MRI brain; if signs of dementia, would add appropriate medication (memantine , donepezil) 9. Anticipated length of stay is 7-10 days. Lester Cruz MD May 27, 2016 22:24
[2016-05-28] MEDS: Pantoprazole 40 mg ER24 Tablet PO SCH (06:42)
[2016-05-28 09:05] VITALS: BP 132/58; PULSE 84
--- NOTE | 2016-05-28 13:35 | PCM.PNPSY ---
Subjective Date of Service May 28, 2016 Subjective The patient was very agitated this morning, stating that she was leaving. She could be heard talking to unseen others before opening the door to talk to her. She was fixated on the idea that she had been getting the wrong lithium and that "there will be a lawsuit." Patient was refusing to have MRI, stating she needed to talk to her , first [place]. After talking to him, she still did not want the scan. Sleep: 7+ hours Appetite: good Suicidal and homicidal ideation: none reported Auditory hallucinations: as above Visual hallucinations: unknown Other Psychotic Symptoms: disorganized, perseverative. Current Medications Current Medications Acetaminophen 650 mg Q4 PRN PO Last administered on 05/28/16 12:01; Admin Dose 650 MG; Start 05/27/16 at 09:55 Ciprofloxacin 500 mg DAILY PO Last administered on 05/28/16 07:59; Admin Dose 500 MG; Start 05/27/16 at 15:20 Famotidine 20 mg DAILY PO Last administered on 05/28/16 08:00; Admin Dose 20 MG ; Start 05/27/16 at 08:30 [place] Carbonate 150 mg BID PO Last administered on 05/28/16 08:00; Admin Dose 150 MG; Start 05/27/16 at 20:30 Pantoprazole 40 mg 0630 PO Last administered on 05/28/16 06:42; Admin Dose 40 MG ; Start 05/28/16 at 06:30 Mental Status Exam Vital Signs Vital Signs Date Time Temp Pulse Resp B/P Pulse Ox O2 Delivery O2 Flow Rate FiO2 05/28/16 09:05 36.0 84 132/58 Appearance: Unkept Attitude: Guarded, Uncooperative Behavior: Distractible Affect: Well Modulated/Appropriate Mood: Dysthymic, Anxious Thought Process/Associations: Tangential (at times), Circumstantial Speech Production: Normal Speech Rate: Normal Speech Articulation: Normal Thought Content: Somatic preoccupation, Perseveration Danger to Self/Suicidal Ideati: None Danger to Others: None Delusions: Paranoid (Endorses) Hallucinations: Auditory (Denies, but is responding to conversation with unseen others), Visual (Denies) Consciousness: Alert Orientation: Person, Place Memory: Short Term Memory (Impaired) Estimate Intellectual Function: Average Basis for IQ estimate: Awareness current events, Word use/vocabulary, Educational history, Employment history Attention/Concentration & Cogn: Impaired Insight: Limited Judgement: Limited Mental Health Plan The patient is a 71-year-old female who has been medication adherent, but has developed altered mental status over the last few days prior to admission. The urinalysis was significant for urinary tract infection which could have explained the patient's abnormal mental status, but subsequent urinalysis indicated the infection had been treated yet the patient remained psychotic. The patient also could have a progressing neurocognitive disorder worsening her psychiatric symptoms. Given the patient's family history of a half-sister with Alzheimer's disease, when she is more stable a further mental status examination should be accomplished. Her lithium level was 0.7 on 04/29/2016 as well as the subsequent follow-up lithium level, so it would be unusual for her to be lithium toxic. The patient appeared to have worsening symptoms with increase of quetiapine and so was switched lurasidone. The patient was also quite tremulous and so lithium was decreased to 300 mg at bedtime. The patient stopped taking lurasidone after 05/21, but up to that point had been taking quetiapine 200mg nightly which was subsequently reduced to 25mg. Given the amount of time elapsed, the patient may respond to 100mg quetiapine rather than 150mg dose prior to admission. Follow-up lithium level 0.3. As this level of psychosis is a relatively new symptom for this patient, discussed with patient' s that neurocognitive disorder of some type may be playing a role and an MRI/CT would help to assess whether volume loss has occurred; he was in agreement. According to [facility], there is no ADR or allergy regarding lithium, but she has received Beatriz and [facility] lithium in the past. The patient is currently refusing MRI and is still responding to unseen others. [place] AXIS I: 1. Bipolar disorder, current episode, mixed with psychotic features. 2. Major neurocognitive disorder, unspecified, appears to be improving. AXIS II: Deferred. AXIS III: Urinary tract infection resolved. See past medical history. AXIS IV: Moderate. AXIS V: Global Assessment of Functioning 35. Medications Lithobid 300mg nightly Quetiapine 100mg nightly Clonazepam 1mg nightly Treatments 1. The patient is admitted to the inpatient unit and will be provided a safe and secure environment. 2. The patient is denying current active suicidality and is not in need of a one-to-one at this time. 3. The patient is encouraged to participate with group and milieu activities. 4. The patient will be seen by the treatment team on a daily basis to assess symptoms, side effects and response to treatment. 5. [facility] will be changed to lithium carbonate 150mg twice daily (Beatriz brand). 6. Consider decreasing clonazepam to 0.5 mg nightly 7. Continue quetiapine 100mg nightly. 8. MRI brain; if signs of dementia, would add appropriate medication (memantine , donepezil) 9. Anticipated length of stay is 7-10 days. Lester Cruz MD May 28, 2016 13:35
--- NOTE | 2016-05-28 16:38 | DRSVH ---
PROCEDURE: MRI BRAIN WITHOUT CONTRAST ([id number]) INDICATIONS: Psychosis, cognitive decline TECHNIQUE: Non-contrast axial T1 spin echo, axial T2 fast spin echo, sagittal and axial FLAIR, coronal T2 fast s pin echo, axial gradient echo, axial diffusion and ADC through the brain. COMPARISON: [facility], MR, BRAIN W&W/O CONTRAST, 09/03/2009, 8:45. FINDINGS: Image quality: Motion is present throughout the examination, limiting areas of fine detail evaluation . CSF spaces: Ventricles appear symmetric in size and shape. Basal cisterns are patent. No extra-axi al fluid collections. Brain: No intracranial bleeds or mass effects. There is cerebral volume loss for age. There are pe riventricular and deep white matter chronic small vessel ischemic changes. Brainstem appears normal. Diffusion-weighted images show no acute ischemic insults. No chronic ischemic insults. Normal int ravascular flow voids are present. Skull and face: Calvarial bone marrow is normal in signal. Orbits are normal. Sinuses: Sinuses demonstrate prominent mucosal thickening within the right maxillary and ethmoid sinu ses with mild pansinus mucosal thickening within the remaining sinuses. IMPRESSION: 1. No acute intracranial process. 2. Mild atrophy and chronic microvascular ischemic changes. Dictated by: Nivia Enamorado M.D. on 05/28/2016 at 16:33 Approved by: Nivia Enamorado M.D. on 05/28/2016 at 16:36
[2016-05-28] MEDS: Benzocaine-Menthol Lozenge 2/Pkg PO PRN (22:32)
[2016-05-29] MEDS: Pantoprazole 40 mg ER24 Tablet PO SCH (07:47)
--- NOTE | 2016-05-29 16:13 | PCM.PNMED ---
Subjective Date of Service May 29, 2016 Subjective Pt complains of increasing bilateral LE edema, left worse than right. She denies orthopnea and shortness of breath. She states the rash on her face appears better. No other complaints or concerns at this time. Exam Vital Signs Vital Sign - Last Date Time Temp Pulse Resp B/P Pulse Ox O2 Delivery O2 Flow Rate FiO2 05/28/16 09:05 36.0 84 132/58 05/27/16 08:00 20 Exam GENERAL: NAD, Pt laying in bed comfortably HEENT: AT/NC, PERRLA, EOMI, Mucus Membranes are moist CARDIAC: RRR; Holosystolic murmur present PULM: CTAB; No wheezes or rhonchi bilaterally EXT: 1+ pitting edema in bilateral LE; No calf tenderness bilaterally SKIN: Warm, Dry, [place], and Intact NEURO: Alert and oriented x3; Following all commands IVs and Medications Medications Reviewed: Medications were reviewed in detail Assessment & Plan 71-year-old female with history of remote asthma bipolar disorder, arthritis, tardive dyskinesia, GERD, heart murmur she is currently in the psych unit for bipolar disorder her medications are believed to cause a rash over her face for which hospitalist team is consulted. -Dr Darling has visited with the patient and has given her hydrocortisone ointment, bacitracin. Clinically improving with this treatment. Her psych medications have been switched to address this. 1. Lower Extremity Edema - Etiology unclear - Will order an ECHO now to evaluate cardiac function - Start Lasix 20 mg PO daily - Check BMP in AM - Elevated legs while seated or laying down - LE US was negative for DVT 2. Facial Rash - Improving - Continue Hydrocortisone PRN GI Prophylaxis: H2 shazia, Proton Pump Inhibitor Hal Kothari MD May 29, 2016 16:13
[2016-05-29 17:57] VITALS: BP 136/75; PULSE 80; RESP 16
--- NOTE | 2016-05-29 19:12 | PCM.PNPSY ---
Subjective Date of Service May 29, 2016 Subjective The patient was still perseverating on discharging today and the state of her hair and lack of a permanent. She had apparently been communicating via auditory hallucinations with her son who she expected to be at the Court. She was quite agitated today and required the presence of her in order to go to court. In court she was disorganized and was actively responding to auditory hallucinations of Maniwillam Pedraza. The patient agreed to the MRI scan last evening and we discussed the use of Namenda but the patient was focused on her lower extremity edema and need to improve circulation in her heart and her brain which somehow was associated with her lower extremity edema. The patient was also still perseverating on an incident where staff thought she may have had an episode of urinary incontinence at the beginning of the week and felt that to be overly embarrassing. Sleep: 5.5+ hours Appetite: good Suicidal and homicidal ideation: none reported Auditory hallucinations: as above Visual hallucinations: Denies Other Psychotic Symptoms: disorganized, perseverative. Anxiety: About discharge. Current Medications Current Medications Clonazepam 1 mg ONCE ONCE PO Last administered on 05/28/16 14:11; Admin Dose 1 MG; Start 05/28/16 at 14:05; Stop 05/28/16 at 14:07; Status DC Furosemide 20 mg DAILY PO Last administered on 05/29/16 16:27; Admin Dose 20 MG ; Start 05/29/16 at 16:10 [place] Carbonate 150 mg BID PO Last administered on 05/29/16 07:48; Admin Dose 150 MG; Start 05/27/16 at 20:30 Pantoprazole 40 mg 0630 PO Last administered on 05/29/16 07:47; Admin Dose 40 MG ; Start 05/28/16 at 06:30; Stop 05/29/16 at 13:11; Status DC Mental Status Exam Vital Signs Vital Signs Date Time Temp Pulse Resp B/P Pulse Ox O2 Delivery O2 Flow Rate FiO2 05/29/16 17:57 36.5 80 16 136/75 Appearance: Neat/well groomed Attitude: Guarded, Uncooperative Behavior: Distractible Affect: Labile Mood: Irritable, Dysthymic, Anxious Thought Process/Associations: Tangential (at times), Circumstantial Speech Production: Abundant Speech Rate: Pressured Speech Articulation: Normal Thought Content: Somatic preoccupation, Perseveration Danger to Self/Suicidal Ideati: None Danger to Others: None Delusions: Paranoid (Endorses) Hallucinations: Auditory (Denies, but is responding to conversation with unseen others), Visual (Denies) Consciousness: Alert Orientation: Person, Place Memory: Short Term Memory (Impaired) Estimate Intellectual Function: Average Basis for IQ estimate: Awareness current events, Word use/vocabulary, Educational history, Employment history Attention/Concentration & Cogn: Impaired Insight: Limited Judgement: Limited Mental Health Plan The patient is a 71-year-old female who has been medication adherent, but has developed altered mental status over the last few days prior to admission. The urinalysis was significant for urinary tract infection which could have explained the patient's abnormal mental status, but subsequent urinalysis indicated the infection had been treated yet the patient remained psychotic. The patient also could have a progressing neurocognitive disorder worsening her psychiatric symptoms. Given the patient's family history of a half-sister with Alzheimer's disease, when she is more stable a further mental status examination should be accomplished. Her lithium level was 0.7 on 04/29/2016 as well as the subsequent follow-up lithium level, so it would be unusual for her to be lithium toxic. The patient appeared to have worsening symptoms with increase of quetiapine and so was switched lurasidone. The patient was also quite tremulous and so lithium was decreased to 300 mg at bedtime. The patient stopped taking lurasidone after 05/21, but up to that point had been taking quetiapine 200mg nightly which was subsequently reduced to 25mg. Given the amount of time elapsed, the patient was placed on 100mg quetiapine rather than 150mg dose prior to admission. Follow-up lithium level 0.3. As psychosis is a relatively new symptom for this patient, discussed with patient's that neurocognitive disorder of some type may be playing a role and an MRI/CT would help to assess whether volume loss has occurred; he was in agreement. According to [facility], there is no ADR or allergy regarding lithium, but she has received Beatriz and [place] rosy lithium in the past. Findings on MRI Brain: "No intracranial bleeds or mass effects. There is cerebral volume loss for age. There are periventricular and deep white matter chronic small vessel ischemic changes. Brainstem appears normal. Diffusion-weighted images show no acute ischemic insults. No chronic ischemic insults. Normal intravascular flow voids are present." Discussed starting Namenda 5 mg and the patient and patient's were both agreeable. The patient received a 90 day more restrictive order and will likely be transferred to [facility]. [place] AXIS I: 1. Bipolar disorder, current episode, mixed with psychotic features. 2. Major neurocognitive disorder, unspecified, appears to be improving. AXIS II: Deferred. AXIS III: Urinary tract infection resolved. See past medical history. AXIS IV: Moderate. AXIS V: Global Assessment of Functioning 35. Medications Lithobid 300mg nightly Quetiapine 100mg nightly Clonazepam 1mg nightly Treatments 1. The patient is admitted to the inpatient unit and will be provided a safe and secure environment. 2. The patient is denying current active suicidality and is not in need of a one-to-one at this time. 3. The patient is encouraged to participate with group and milieu activities. 4. The patient will be seen by the treatment team on a daily basis to assess symptoms, side effects and response to treatment. 5. [place] [facility] will be changed to lithium carbonate 150mg twice daily (Beatriz brand). 6. Consider decreasing clonazepam to 0.5 mg nightly 7. Continue quetiapine 100mg nightly. 8. Namenda 5 mg by mouth daily. 9. Patient is currently on any 90 day more restrictive order and will be placed on [facility] list. Lester Cruz MD May 29, 2016 19:12
[2016-05-30 09:10] VITALS: BP 130/70; PULSE 78; RESP 16
--- NOTE | 2016-05-30 10:23 | PCM.PNMED ---
Subjective Date of Service May 30, 2016 Subjective Pt reports the swelling in her legs appears improved today. She denies shortness of breath. Her rash seems to have improved also. No other complaints at this time. Exam Vital Signs Vital Sign - Last Date Time Temp Pulse Resp B/P Pulse Ox O2 Delivery O2 Flow Rate FiO2 05/30/16 09:10 36.4 78 16 130/70 Exam GENERAL: NAD, Pt laying in bed comfortably HEENT: AT/NC, PERRLA, EOMI, Mucus Membranes are moist EXT: 1+ pitting edema in bilateral LE SKIN: Warm, Dry, [place], and Intact NEURO: Alert and oriented x3; Following all commands IVs and Medications Medications Reviewed: Medications were reviewed in detail Assessment & Plan 71-year-old female with history of remote asthma bipolar disorder, arthritis, tardive dyskinesia, GERD, heart murmur she is currently in the psych unit for bipolar disorder her medications are believed to cause a rash over her face for which hospitalist team is consulted. -Dr Darling has visited with the patient and has given her hydrocortisone ointment, bacitracin. Clinically improving with this treatment. Her psych medications have been switched to address this. 1. Acute Kidney Injury - Secondary to Lasix likely - Push PO fluids today - Decrease Lasix to 10 mg PO daily - Recheck BMP In AM 2. Lower Extremity Edema, Bilateral - Etiology unclear - ECHO pending - Decrease Lasix to 10 mg daily, see above - Check BMP in AM - Elevated legs while seated or laying down - LE US was negative for DVT 3. Facial Rash - Resolved - Continue Hydrocortisone PRN GI Prophylaxis: H2 shazia, Proton Pump Inhibitor Hal Kothari MD May 30, 2016 10:22
--- NOTE | 2016-05-30 13:40 | PCM.PNPSY ---
Subjective Date of Service May 30, 2016 Subjective The patient is more agitated today and still focused on being discharged. She stated that there would be a group of men in suits were coming to take her out of the hospital. She believes her and her son becoming to take her today. The patient was irritable with the internal medicine provider as well. Sleep: 3+ hours Appetite: good Suicidal and homicidal ideation: none reported Auditory hallucinations: as above Visual hallucinations: Denies Other Psychotic Symptoms: disorganized, perseverative. Anxiety: About discharge. Current Medications Current Medications Clonazepam 1 mg ONCE ONCE PO Last administered on 05/28/16 14:11; Admin Dose 1 MG; Start 05/28/16 at 14:05; Stop 05/28/16 at 14:07; Status DC Furosemide 20 mg DAILY PO Last administered on 05/30/16 09:07; Admin Dose 20 MG ; Start 05/29/16 at 16:10; Stop 05/30/16 at 10:19; Status DC Memantine 5 mg DAILY PO Last administered on 05/30/16 09:07; Admin Dose 5 MG; Start 05/30/16 at 08:30 Mental Status Exam Vital Signs Vital Signs Date Time Temp Pulse Resp B/P Pulse Ox O2 Delivery O2 Flow Rate FiO2 05/30/16 09:10 36.4 78 16 130/70 Appearance: Neat/well groomed Attitude: Guarded, Uncooperative, Hostile/Threatening (mild) Behavior: Distractible Affect: Labile Mood: Irritable, Dysthymic, Anxious Thought Process/Associations: Tangential (at times), Circumstantial Speech Production: Abundant Speech Rate: Pressured Speech Articulation: Normal Thought Content: Somatic preoccupation, Perseveration Danger to Self/Suicidal Ideati: None Danger to Others: None Delusions: Paranoid (Endorses) Hallucinations: Auditory (Denies, but is responding to conversation with unseen others), Visual (Denies) Consciousness: Alert Orientation: Person, Place, Situation Memory: Short Term Memory (Impaired) Estimate Intellectual Function: Average Basis for IQ estimate: Awareness current events, Word use/vocabulary, Educational history, Employment history Attention/Concentration & Cogn: Impaired Insight: Limited Judgement: Limited Mental Health Plan The patient is a 71-year-old female who has been medication adherent, but has developed altered mental status over the last few days prior to admission. The urinalysis was significant for urinary tract infection which could have explained the patient's abnormal mental status, but subsequent urinalysis indicated the infection had been treated yet the patient remained psychotic. The patient also could have a progressing neurocognitive disorder worsening her psychiatric symptoms. Given the patient's family history of a half-sister with Alzheimer's disease, when she is more stable a further mental status examination should be accomplished. Her lithium level was 0.7 on 04/29/2016 as well as the subsequent follow-up lithium level, so it would be unusual for her to be lithium toxic. The patient appeared to have worsening symptoms with increase of quetiapine and so was switched lurasidone. The patient was also quite tremulous and so lithium was decreased to 300 mg at bedtime. The patient stopped taking lurasidone after 05/21, but up to that point had been taking quetiapine 200mg nightly which was subsequently reduced to 25mg. Given the amount of time elapsed, the patient was placed on 100mg quetiapine rather than 150mg dose prior to admission. Follow-up lithium level 0.3. As psychosis is a relatively new symptom for this patient, discussed with patient's that neurocognitive disorder of some type may be playing a role and an MRI/CT would help to assess whether volume loss has occurred; he was in agreement. Findings on MRI Brain: "No intracranial bleeds or mass effects. There is cerebral volume loss for age. There are periventricular and deep white matter chronic small vessel ischemic changes. Brainstem appears normal. Diffusion-weighted images show no acute ischemic insults. No chronic ischemic insults. Normal intravascular flow voids are present." According to [facility], there is no ADR or allergy regarding lithium, but she has received Beatriz and [place] rosy lithium in the past. Discussed starting Namenda 5 mg and the patient and patient's were both agreeable. The patient received a 90 day more restrictive order and will likely be transferred to [facility]. The patient appears to have had worsening of symptoms with increasing the dose of quetiapine. Given the possibility of dementia worsening her symptoms, reducing the dose of quetiapine may help reduce irritability and confusion as the patient is consistently refusing lurasidone. [place] AXIS I: 1. Bipolar disorder, current episode, mixed with psychotic features. 2. Major neurocognitive disorder, unspecified, likely vascular type. AXIS II: Deferred. AXIS III: Urinary tract infection resolved. See past medical history. AXIS IV: Moderate. AXIS V: Global Assessment of Functioning 35. Medications Lithobid 300mg nightly Quetiapine 100mg nightly Clonazepam 1mg nightly Treatments 1. The patient is admitted to the inpatient unit and will be provided a safe and secure environment. 2. The patient is denying current active suicidality and is not in need of a one-to-one at this time. 3. The patient is encouraged to participate with group and milieu activities. 4. The patient will be seen by the treatment team on a daily basis to assess symptoms, side effects and response to treatment. 5. [place] [facility] will be changed to lithium carbonate 150mg twice daily (Beatriz brand). 6. Consider decreasing clonazepam to 0.5 mg nightly 7. Reduce quetiapine to 50 mg nightly. 8. Namenda 5 mg by mouth daily. 9. Patient is currently on any 90 day more restrictive order and will be placed on [facility] list. Lester Cruz MD May 30, 2016 13:40
[2016-05-31 11:06] VITALS: BP 128/56; PULSE 79; RESP 16
--- NOTE | 2016-05-31 19:14 | PCM.PNPSY ---
Subjective Date of Service May 31, 2016 Subjective The patient is agitated today and still focused on being discharged. She [place] today and that if we do not release her her enterprise sales person will come to get her out tomorrow. This is similar to her report yesterday. We attempted to discuss switching medication to look to do but she was adamantly against this medication. She has not been tried on aripiprazole as it was too expensive in the past, but now with discount coupons , the medication which was once over $1000 a month is only $60 a month. With the patient's , who has been extensively involved in the patient's care, supports this plan. The patient refused echocardiogram, internal medicine was informed. Sleep: 3.5+ hours Appetite: "Too good" Suicidal and homicidal ideation: Denies Auditory hallucinations: Ongoing with her son and various others Visual hallucinations: Denies Other Psychotic Symptoms: disorganized, perseverative. Anxiety/depression: "Just about this director of sustainability thing" Current Medications Current Medications Furosemide 10 mg DAILY PO Last administered on 05/31/16 08:08; Admin Dose 10 MG ; Start 05/31/16 at 08:30 Memantine 5 mg DAILY PO Last administered on 05/31/16 08:10; Admin Dose 5 MG; Start 05/30/16 at 08:30 Quetiapine Fumarate 25 mg DAILY PO Last administered on 05/31/16 14:42; Admin Dose 25 MG; Start 05/31/16 at 12:25 Quetiapine Fumarate 50 mg HS PO Last administered on 05/30/16 20:03; Admin Dose 50 MG; Start 05/30/16 at 21:00 Temazepam 15 mg HS PRN PO Last administered on 05/30/16 23:37; Admin Dose 15 MG ; Start 05/30/16 at 13:40 Mental Status Exam Appearance: Neat/well groomed Attitude: Guarded, Uncooperative, Hostile/Threatening (mild) Behavior: Distractible Affect: Labile Mood: Irritable, Dysthymic, Anxious Thought Process/Associations: Tangential (at times), Circumstantial Speech Production: Abundant Speech Rate: Pressured Speech Articulation: Normal Thought Content: Somatic preoccupation, Perseveration Danger to Self/Suicidal Ideati: None Danger to Others: None Delusions: Paranoid (Endorses) Hallucinations: Auditory (Denies, but is having active conversations with unseen others.), Visual (Denies) Consciousness: Alert Orientation: Person, Place, Situation Memory: Short Term Memory (Impaired) Estimate Intellectual Function: Average Basis for IQ estimate: Awareness current events, Word use/vocabulary, Educational history, Employment history Attention/Concentration & Cogn: Impaired Insight: Limited Judgement: Limited Result Diagram: 05/31/16 0856 Mental Health Plan The patient is a 71-year-old female who has been medication adherent, but has developed altered mental status over the last few days prior to admission. The urinalysis was significant for urinary tract infection which could have explained the patient's abnormal mental status, but subsequent urinalysis indicated the infection had been treated yet the patient remained psychotic. The patient also could have a progressing neurocognitive disorder worsening her psychiatric symptoms. Given the patient's family history of a half-sister with Alzheimer's disease, when she is more stable a further mental status examination should be accomplished. Her lithium level was 0.7 on 04/29/2016 as well as the subsequent follow-up lithium level, so it would be unusual for her to be lithium toxic. The patient appeared to have worsening symptoms with increase of quetiapine and so was switched lurasidone. The patient was also quite tremulous and so lithium was decreased to 300 mg at bedtime. The patient stopped taking lurasidone after 05/21, but up to that point had been taking quetiapine 200mg nightly which was subsequently reduced to 25mg. Given the amount of time elapsed, the patient was placed on 100mg quetiapine rather than 150mg dose prior to admission. Follow-up lithium level 0.3. As psychosis is a relatively new symptom for this patient, discussed with patient's that neurocognitive disorder of some type may be playing a role and an MRI/CT would help to assess whether volume loss has occurred; he was in agreement. Findings on MRI Brain: "No intracranial bleeds or mass effects. There is cerebral volume loss for age. There are periventricular and deep white matter chronic small vessel ischemic changes. Brainstem appears normal. Diffusion-weighted images show no acute ischemic insults. No chronic ischemic insults. Normal intravascular flow voids are present." According to [facility], there is no ADR or allergy regarding lithium, but she has received Beatriz and [place] rosy lithium in the past. Discussed starting Namenda 5 mg and the patient and patient's were both agreeable. The patient received a 90 day more restrictive order and will likely be transferred to [facility]. The patient appears to have had worsening of symptoms with increasing the dose of quetiapine. Reducing the dose of quetiapine does not have appeared to improved her symptoms. The patient is unwilling to take material. The patient had previously been offered aripiprazole but had decline due to cost which is now less of an issue. Given her failure to respond to the medications aripiprazole we will be started in the morning. [place] AXIS I: 1. Bipolar disorder, current episode, mixed with psychotic features. 2. Major neurocognitive disorder, unspecified, likely vascular type. AXIS II: Deferred. AXIS III: Urinary tract infection resolved. See past medical history. AXIS IV: Moderate. AXIS V: Global Assessment of Functioning 35. Medications Lithobid 300mg nightly Quetiapine 50mg nightly Clonazepam 1mg nightly Treatments 1. The patient is admitted to the inpatient unit and will be provided a safe and secure environment. 2. The patient is denying current active suicidality and is not in need of a one-to-one at this time. 3. The patient is encouraged to participate with group and milieu activities. 4. The patient will be seen by the treatment team on a daily basis to assess symptoms, side effects and response to treatment. 5. [place] [facility] will be changed to lithium carbonate 150mg twice daily (Beatriz brand). 6. Consider decreasing clonazepam to 0.5 mg nightly 7. Continue quetiapine 50 mg nightly with 25 mg this afternoon. 8. Aripiprazole 5 mg by mouth daily 9. Namenda 5 mg by mouth daily. 10. Patient is currently on any 90 day more restrictive order and will be placed on [facility] list. 11. The hospitalist is working up her lower extremity edema that the patient is not operating with testing. Lester Cruz MD May 31, 2016 19:14
[2016-06-01 09:36] VITALS: BP 140/73; PULSE 70; RESP 20
--- NOTE | 2016-06-01 14:05 | PCM.PNPSY ---
Subjective Date of Service Jun 01, 2016 Subjective I spent 30 minutes both reviewing treatment plan with clinical team, interviewing the patient and providing supportive/educational psychotherapy. I spent more than 50% of the time counseling the patient however the patient could only tolerate a brief interaction. I reviewed the treatment plan with the patient and discussed options available. Breanna reports a marked improvement in thought organization and mood stability and that she is ready for discharge immediately. Staff reports that she has been hyper active but is responding to staff requests for redirection and is participating well in one-to-one unit and group activities. She slept for hours and although she denies carlton or psychotic symptoms review both staff and I are observing her to be intermittently responding to internal stimuli and showing poor impulse control and severe distractibility. She denies medication side effects. Patient was able to identify her medications and what they were used to treat. Current Medications Current Medications Furosemide 10 mg DAILY PO Last administered on 06/01/16 08:10; Admin Dose 10 MG ; Start 05/31/16 at 08:30 Quetiapine Fumarate 25 mg DAILY PO Last administered on 06/01/16 08:09; Admin Dose 25 MG; Start 05/31/16 at 12:25 Quetiapine Fumarate 50 mg HS PO Last administered on 05/31/16 20:28; Admin Dose 50 MG; Start 05/30/16 at 21:00 Mental Status Exam Vital Signs Vital Signs Date Time Temp Pulse Resp B/P Pulse Ox O2 Delivery O2 Flow Rate FiO2 06/01/16 09:36 36.6 70 20 140/73 Appearance: Neat/well groomed Attitude: Guarded, Uncooperative, Hostile/Threatening (mild) Behavior: Distractible Affect: Labile Mood: Irritable, Dysthymic, Anxious Thought Process/Associations: Tangential (at times), Circumstantial Speech Production: Abundant Speech Rate: Pressured Speech Articulation: Normal Thought Content: Somatic preoccupation, Perseveration Danger to Self/Suicidal Ideati: None Danger to Others: None Delusions: Paranoid (Endorses) Hallucinations: Auditory (Denies, but is having active conversations with unseen others.), Visual (Denies) Consciousness: Alert Orientation: Person, Place, Situation Memory: Short Term Memory (Impaired) Estimate Intellectual Function: Average Basis for IQ estimate: Awareness current events, Word use/vocabulary, Educational history, Employment history Attention/Concentration & Cogn: Impaired Insight: Limited Judgement: Limited Result Diagram: 06/01/16 0900 Mental Health Plan The patient is a 71-year-old female who developed altered mental status for several days prior to admission. She remains in an acute manic state with significant disorganization of thought , poor judgment, poor insight and poor impulse control. At this point she is unable to remember events prior to admission suggesting a potential progressing neurocognitive disorder. Breanna is currently in the manic stage of bipolar mood disorder. When she was here recently she was in a depressed state for over 6 weeks. I believe she needs time on the current medications and the structure of our unit To reestablish emotional stability and reality based thinking. Over the past week she appeared to have worsening symptoms with increase of quetiapine and so was switched lurasidone. The patient was also quite tremulous and so lithium was decreased to 300 mg at bedtime. She appears to be responding well to that discontinuing of Seroquel and the addition of latuda. She has struggled to sleep well for the past several nights. She appears to be making slow but gradual progress towards stability of mood and thought organization. [place] AXIS I: 1. Bipolar disorder, current episode, mixed with psychotic features. 2. Major neurocognitive disorder, unspecified, likely vascular type. AXIS II: Deferred. AXIS III: Urinary tract infection resolved. See past medical history. AXIS IV: Moderate. AXIS V: Global Assessment of Functioning 35. Medications Abilify 5 mg daily Namenda 5 mg daily Klonopin 1 mg at bedtime Seroquel 50 mg at bedtime [place] ER 150 twice daily Treatments 1. The patient is admitted to the inpatient unit and will be provided a safe and secure environment. 2. The patient is denying current active suicidality and is not in need of a one-to-one at this time. 3. The patient is encouraged to participate with group and milieu activities. 4. The patient will be seen by the treatment team on a daily basis to assess symptoms, side effects and response to treatment. 5. [place] ER will be changed to lithium carbonate 150mg twice daily (Beatriz brand). 6. clonazepam to 0.5 mg nightly 7. Continue quetiapine 50 mg nightly with 25 mg this afternoon. 8. Aripiprazole 5 mg by mouth daily 9. Namenda 5 mg by mouth daily. 10. Patient is currently on any 90 day more restrictive order and will be placed on [facility] list. 11. The hospitalist is working up her lower extremity edema that the patient is not operating with testing. Gunner Palacios MD Jun 01, 2016 14:05
[2016-06-02 11:04] VITALS: BP 127/65; PULSE 70; RESP 15
--- NOTE | 2016-06-02 12:28 | PCM.PNPSY ---
Subjective Date of Service Jun 02, 2016 Subjective I spent 30 minutes both reviewing treatment plan with clinical team, interviewing the patient and providing supportive/educational psychotherapy. I spent less than 50% of the time counseling the patient as the patient could only tolerate a brief interaction before escalating and becoming both irrational , emotionally labile and demanding immediate discharge.. I attempted to review the treatment plan with the patient and discussed options available she was having nothing of it. Instead she will started a prolonged rant about the [employer] and hairdresser that was going to remove a water pump from her skull. Beranna reports a marked improvement in thought organization and mood stability and that she is ready for discharge immediately. Staff reports that she has been hyper active drug going to attend activities of daily living. For unclear reasons she is refusing to shower. She slept for 4 hours and although she denies carlton or psychotic symptoms review both staff and I are observing her to be intermittently responding to internal stimuli and showing poor impulse control and severe distractibility. She denies medication side effects. Patient was able to identify her medications and what they were used to treat. Current Medications Current Medications Aripiprazole 5 mg DAILY PO Last administered on 06/02/16t 08:13; Admin Dose 5 MG ; Start 05/31/16 at 17:45 Mental Status Exam Vital Signs Vital Signs Date Time Temp Pulse Resp B/P Pulse Ox O2 Delivery O2 Flow Rate FiO2 06/02/16 11:04 36.0 70 15 127/65 Appearance: Neat/well groomed Attitude: Guarded, Uncooperative, Hostile/Threatening (mild) Behavior: Distractible Affect: Labile Mood: Irritable, Dysthymic, Anxious Thought Process/Associations: Tangential (at times), Circumstantial Speech Production: Abundant Speech Rate: Pressured Speech Articulation: Normal Thought Content: Somatic preoccupation, Perseveration Danger to Self/Suicidal Ideati: None Danger to Others: None Delusions: Paranoid (Endorses) Hallucinations: Auditory (Denies, but is having active conversations with unseen others.), Visual (Denies) Consciousness: Alert Orientation: Person, Place, Situation Memory: Short Term Memory (Impaired) Estimate Intellectual Function: Average Basis for IQ estimate: Awareness current events, Word use/vocabulary, Educational history, Employment history Attention/Concentration & Cogn: Impaired Insight: Limited Judgement: Limited Result Diagram: 06/02/16 0655 Mental Health Plan The patient is a 71-year-old female who developed altered mental status for several days prior to admission. She remains in an acute manic state with significant disorganization of thought , poor judgment, poor insight and poor impulse control. At this point she is unable to remember events prior to admission suggesting a potential progressing neurocognitive disorder. Breanna is currently in the manic stage of bipolar mood disorder. When she was here recently she was in a depressed state for over 6 weeks. I believe she needs time on the current medications and the structure of our unit To reestablish emotional stability and reality based thinking. Over the past week she appeared to have worsening symptoms with increase of quetiapine and so was switched lurasidone. The patient was also quite tremulous and so lithium was decreased to 300 mg at bedtime. She appears to be responding well to that discontinuing of Seroquel and the addition of latuda. She has struggled to sleep well for the past several nights. She appears to be making slow but gradual progress towards stability of mood and thought organization. [place] AXIS I: 1. Bipolar disorder, current episode, mixed with psychotic features. 2. Major neurocognitive disorder, unspecified, likely vascular type. AXIS II: Deferred. AXIS III: Urinary tract infection resolved. See past medical history. AXIS IV: Moderate. AXIS V: Global Assessment of Functioning 35. Medications Abilify 5 mg daily Namenda 5 mg daily Klonopin 1 mg at bedtime Seroquel 50 mg at bedtime [place] ER 150 twice daily Treatments 1. The patient is admitted to the inpatient unit and will be provided a safe and secure environment. 2. The patient is denying current active suicidality and is not in need of a one-to-one at this time. 3. The patient is encouraged to participate with group and milieu activities. 4. The patient will be seen by the treatment team on a daily basis to assess symptoms, side effects and response to treatment. 5. lithium carbonate 150mg twice daily (Beatriz brand). 6. clonazepam to 0.5 mg nightly 7. quetiapine 50 mg nightly with 25 mg this afternoon. 8. Aripiprazole 5 mg by mouth daily 9. Namenda 5 mg by mouth daily. 10. Patient is currently on any 90 day more restrictive order and will be placed on [facility] list. Gunner Palacios MD Jun 02, 2016 12:28
--- NOTE | 2016-06-03 13:37 | PCM.PNPSY ---
Subjective Date of Service Jun 03, 2016 Subjective I spent 30 minutes both reviewing treatment plan with clinical team, interviewing the patient and providing supportive/educational psychotherapy. I spent less than 50% of the time counseling the patient as the patient could only tolerate a brief interaction before escalating and becoming both irrational , emotionally labile and demanding immediate discharge.. I attempted to review the treatment plan with the patient and discussed options available she was having nothing of it. Instead she will started a prolonged rant about the [employer] and hairdresser that was going to remove a water pump from her skull. Breanna reports a marked improvement in thought organization and mood stability and that she is ready for discharge immediately. Staff reports that she has been hyper active drug going to attend activities of daily living. For unclear reasons she is refusing to shower. She slept for 4 hours and although she denies carlton or psychotic symptoms review both staff and I are observing her to be intermittently responding to internal stimuli and showing poor impulse control and severe distractibility. She denies medication side effects. Patient was able to identify her medications and what they were used to treat. Mental Status Exam Appearance: Neat/well groomed Attitude: Guarded, Uncooperative, Hostile/Threatening (mild) Behavior: Distractible Affect: Labile Mood: Irritable, Dysthymic, Anxious Thought Process/Associations: Tangential (at times), Circumstantial Speech Production: Abundant Speech Rate: Pressured Speech Articulation: Normal Thought Content: Somatic preoccupation, Perseveration Danger to Self/Suicidal Ideati: None Danger to Others: None Delusions: Paranoid (Endorses) Hallucinations: Auditory (Denies, but is having active conversations with unseen others.), Visual (Denies) Consciousness: Alert Orientation: Person, Place, Situation Memory: Short Term Memory (Impaired) Estimate Intellectual Function: Average Basis for IQ estimate: Awareness current events, Word use/vocabulary, Educational history, Employment history Attention/Concentration & Cogn: Impaired Insight: Limited Judgement: Limited Result Diagram: 06/03/16 0707 Mental Health Plan The patient is a 71-year-old female who developed altered mental status for several days prior to admission. She remains in an acute manic state with significant disorganization of thought , poor judgment, poor insight and poor impulse control. At this point she is unable to remember events prior to admission suggesting a potential progressing neurocognitive disorder. Breanna is currently in the manic stage of bipolar mood disorder. When she was here recently she was in a depressed state for over 6 weeks. I believe she needs time on the current medications and the structure of our unit To reestablish emotional stability and reality based thinking. Over the past week she appeared to have worsening symptoms with increase of quetiapine and so was switched lurasidone. The patient was also quite tremulous and so lithium was decreased to 300 mg at bedtime. She appears to be responding well to that discontinuing of Seroquel and the addition of latuda. She has struggled to sleep well for the past several nights. She appears to be making slow, gradual progress towards stability of mood and thought organization. [place] AXIS I: 1. Bipolar disorder, current episode, mixed with psychotic features. 2. Major neurocognitive disorder, unspecified, likely vascular type. AXIS II: Deferred. AXIS III: Urinary tract infection resolved. See past medical history. AXIS IV: Moderate. AXIS V: Global Assessment of Functioning 35. Medications Abilify 5 mg daily Namenda 5 mg daily Klonopin 1 mg at bedtime Seroquel 50 mg at bedtime [place] ER 150 twice daily Treatments 1. The patient is admitted to the inpatient unit and will be provided a safe and secure environment. 2. The patient is denying current active suicidality and is not in need of a one-to-one at this time. 3. The patient is encouraged to participate with group and milieu activities. 4. The patient will be seen by the treatment team on a daily basis to assess symptoms, side effects and response to treatment. 5. lithium carbonate 150mg twice daily (Beatriz brand). 6. clonazepam to 0.5 mg nightly 7. quetiapine 50 mg nightly with 25 mg this afternoon. 8. Aripiprazole 5 mg by mouth daily 9. Namenda 5 mg by mouth daily. 10. Patient is currently on any 90 day more restrictive order and will be placed on [facility] list. Gunner Palacios MD Jun 03, 2016 13:37
[2016-06-03 17:48] VITALS: BP 110/61; PULSE 80; RESP 18
--- NOTE | 2016-06-04 08:13 | PCM.PNMED ---
Subjective Date of Service Jun 04, 2016 Subjective Pt appears stable. She is doing well on Lasix. Her pedal edema has decreased. Exam Vital Signs Vital Sign - Last Date Time Temp Pulse Resp B/P Pulse Ox O2 Delivery O2 Flow Rate FiO2 06/03/16 17:48 36.1 80 18 110/61 IVs and Medications Medications Reviewed: Medications were reviewed in detail Lab and Diagnostics Result Diagram: 06/04/16 0710 Assessment & Plan 71-year-old female with history of remote asthma bipolar disorder, arthritis, tardive dyskinesia, GERD, heart murmur she is currently in the psych unit for bipolar disorder her medications are believed to cause a rash over her face for which hospitalist team is consulted. -Dr Darling has visited with the patient and has given her hydrocortisone ointment, bacitracin. Clinically improving with this treatment. Her psych medications have been switched to address this. 1. Acute Kidney Injury - Resolved - Secondary to dehydration - Continue Lasix 10 mg PO daily 2. Lower Extremity Edema, Bilateral - Improving - Etiology unclear - Pt refused ECHO in hospital - Continue Lasix 10 mg daily - Elevate legs while seated or laying down - LE US was negative for DVT 3. Facial Rash - Resolved - Continue Hydrocortisone PRN Internal Medicine will sign off at this time. Please reconsult as necessary. GI Prophylaxis: H2 shazia, Proton Pump Inhibitor Hal Kothari MD Jun 04, 2016 08:13
[2016-06-04 09:53] VITALS: BP 120/71; PULSE 75; RESP 16
--- NOTE | 2016-06-04 14:56 | PCM.PNPSY ---
Subjective Date of Service Jun 04, 2016 Subjective I spent 30 minutes both reviewing treatment plan with clinical team, interviewing the patient and providing supportive/educational psychotherapy. I spent less than 50% of the time counseling the patient as the patient could only tolerate a brief interaction before escalating and becoming both irrational , emotionally labile and demanding immediate discharge. This is the same event I have on a nearly daily basis with Breanna. I attempted to review the treatment plan with the patient and discussed options available she was having nothing of it. Instead she will repeated a prolonged rant about the [employer] and hairdresser that was going to remove a water pump from her skull. Breanna reports a marked improvement in thought organization and mood stability and that she is ready for discharge immediately. Staff reports that she has been hyper active drug going to attend activities of daily living. For unclear reasons she is refusing to shower. She slept for 4 hours and although she denies carlton or psychotic symptoms review both staff and I are observing her to be intermittently responding to internal stimuli and showing poor impulse control and severe distractibility. She denies medication side effects. Patient was able to identify her medications and what they were used to treat. Mental Status Exam Appearance: Neat/well groomed Attitude: Guarded, Uncooperative, Hostile/Threatening (mild) Behavior: Distractible Affect: Labile Mood: Irritable, Dysthymic, Anxious Thought Process/Associations: Tangential (at times), Circumstantial Speech Production: Abundant Speech Rate: Pressured Speech Articulation: Normal Thought Content: Somatic preoccupation, Perseveration Danger to Self/Suicidal Ideati: None Danger to Others: None Delusions: Paranoid (Endorses) Hallucinations: Auditory (Denies, but is having active conversations with unseen others.), Visual (Denies) Consciousness: Alert Orientation: Person, Place, Situation Memory: Short Term Memory (Impaired) Estimate Intellectual Function: Average Basis for IQ estimate: Awareness current events, Word use/vocabulary, Educational history, Employment history Attention/Concentration & Cogn: Impaired Insight: Limited Judgement: Limited Result Diagram: 06/04/16 0710 Mental Health Plan The patient is a 71-year-old female who developed altered mental status for several days prior to admission. She remains in an acute manic state with significant disorganization of thought , poor judgment, poor insight and poor impulse control. At this point she is unable to remember events prior to admission suggesting a potential progressing neurocognitive disorder. Breanna is currently in the manic stage of bipolar mood disorder. When she was here recently she was in a depressed state for over 6 weeks. I believe she needs time on the current medications and the structure of our unit To reestablish emotional stability and reality based thinking. Highly sensitive to medications and it has been difficult To adjust medications to target carlton because she tends to get toxic and have significant side effects. As a result We are having to go very slowly with both medications. At present we are trying to stabilize her with a combination of low-dose lithium Klonopin Seroquel Abilify and Namenda. [place] AXIS I: 1. Bipolar disorder, current episode, mixed with psychotic features. 2. Major neurocognitive disorder, unspecified, likely vascular type. AXIS II: Deferred. AXIS III: Urinary tract infection resolved. See past medical history. AXIS IV: Moderate. AXIS V: Global Assessment of Functioning 30. Treatments 1. The patient is admitted to the inpatient unit and will be provided a safe and secure environment. 2. The patient is denying current active suicidality and is not in need of a one-to-one at this time. 3. The patient is encouraged to participate with group and milieu activities. 4. The patient will be seen by the treatment team on a daily basis to assess symptoms, side effects and response to treatment. 5. lithium carbonate 150mg twice daily (Beatriz brand). 6. clonazepam to 1mg nightly 7. quetiapine 50 mg nightly with 25 mg this afternoon. 8. Aripiprazole 5 mg by mouth daily 9. Namenda 5 mg by mouth daily. 10. Patient is currently on any 90 day more restrictive order and will be placed on [facility] list. Gunner Palacios MD Jun 04, 2016 14:56 7. quetiapine 50 mg nightly with 25 mg this afternoon. 8. Aripiprazole 5 mg by mouth daily 9. Namenda 5 mg by mouth daily. 10. Patient is currently on any 90 day more restrictive order and will be placed on [facility] list. Gunner Palacios MD Jun 04, 2016 14:56
[2016-06-05] MEDS: Benzocaine-Menthol Lozenge 2/Pkg PO PRN ×2 (09:15→20:42)
--- NOTE | 2016-06-05 13:21 | PCM.PNPSY ---
Subjective Date of Service Jun 05, 2016 Subjective I spent 30 minutes both reviewing treatment plan with clinical team, interviewing the patient and providing supportive/educational psychotherapy. I spent less than 50% of the time counseling the patient as the patient could only tolerate a brief interaction before escalating and becoming both irrational , emotionally labile and demanding immediate discharge. This is the same event I have on a daily basis with Breanna. I attempted to review the treatment plan with the patient and discussed options available she was having nothing of it. Breanna reports a resolution of symptoms and that she is ready for discharge immediately. Staff reports that she has been hyper active drug going to attend activities of daily living. For unclear reasons she is refusing to shower. She slept for 4 hours and although she denies carlton or psychotic symptoms review both staff and I are observing her to be intermittently responding to internal stimuli and showing poor impulse control and severe distractibility. She denies medication side effects. Patient was able to identify her medications and what they were used to treat. Mental Status Exam Appearance: Neat/well groomed Attitude: Guarded, Uncooperative, Hostile/Threatening (mild) Behavior: Distractible Affect: Labile Mood: Irritable, Dysthymic, Anxious Thought Process/Associations: Tangential (at times), Circumstantial Speech Production: Abundant Speech Rate: Pressured Speech Articulation: Normal Thought Content: Somatic preoccupation, Perseveration Danger to Self/Suicidal Ideati: None Danger to Others: None Delusions: Paranoid (Endorses) Hallucinations: Auditory (Denies, but is having active conversations with unseen others.), Visual (Denies) Consciousness: Alert Orientation: Person, Place, Situation Memory: Short Term Memory (Impaired) Estimate Intellectual Function: Average Basis for IQ estimate: Awareness current events, Word use/vocabulary, Educational history, Employment history Attention/Concentration & Cogn: Impaired Insight: Limited Judgement: Limited Result Diagram: 06/04/16 0710 Mental Health Plan The patient is a 71-year-old female who developed altered mental status for several days prior to admission. She remains in an acute manic state with significant disorganization of thought , poor judgment, poor insight and poor impulse control. At this point she is unable to remember events prior to admission suggesting a potential progressing neurocognitive disorder. Breanna is currently in the manic stage of bipolar mood disorder. When she was here recently she was in a depressed state for over 6 weeks. I believe she needs time on the current medications and the structure of our unit To reestablish emotional stability and reality based thinking. Highly sensitive to medications and it has been difficult To adjust medications to target carlton because she tends to get toxic and have significant side effects. As a result We are having to go very slowly with both medications. At present we are trying to stabilize her with a combination of low-dose lithium Klonopin Seroquel Abilify and Namenda. [place] AXIS I: 1. Bipolar disorder, current episode, mixed with psychotic features. 2. Major neurocognitive disorder, unspecified, likely vascular type. AXIS II: Deferred. AXIS III: Urinary tract infection resolved. See past medical history. AXIS IV: Moderate. AXIS V: Global Assessment of Functioning 30. Treatments 1. The patient is admitted to the inpatient unit and will be provided a safe and secure environment. 2. The patient is denying current active suicidality and is not in need of a one-to-one at this time. 3. The patient is encouraged to participate with group and milieu activities. 4. The patient will be seen by the treatment team on a daily basis to assess symptoms, side effects and response to treatment. 5. lithium carbonate 150mg twice daily (Beatriz brand). 6. clonazepam to 1mg nightly 7. quetiapine 50 mg nightly with 25 mg this afternoon. 8. Aripiprazole 5 mg by mouth daily 9. Namenda 5 mg by mouth daily. 10. Patient is currently on any 90 day more restrictive order and will be placed on [facility] list. Gunner Palacios MD Jun 05, 2016 13:21
[2016-06-05 17:54] VITALS: BP 116/62; PULSE 74; RESP 18
[2016-06-06 12:00] VITALS: BP 139/66; PULSE 69; RESP 16
--- NOTE | 2016-06-06 12:22 | PROG NOTE ---
[address] [address] PROGRESS NOTE PATIENT: UMA MARTÍNEZ : 1945 MR#: [id number] ADMIT: 04/28/2016 JOB ID: [id number] DATE: 06/06/2016 IDENTIFICATION: This is a 71-year-old, lady hospitalized involuntarily on this unit on April 28, 2016. DIAGNOSES: AXIS I Bipolar, depressed, with psychosis. AXIS III 1. Urinary tract infection, for which she is on Cipro. 2. Gastroesophageal reflux disease. 3. She is also on hydrochlorothiazide that I resumed for hypertension. MEDICATIONS: 1. Abilify 5 mg a day. 2. Seroquel 25 in the daytime and 50 at night. 3. Namenda 5 mg a day. 4. [place] 150 mg b.i.d. Started the . A lithium level done before that was 0.3. Will get a lithium level today. NARRATIVE: The patient seen and discussed with staff. Her sleep was still poor but she tended to minimize it. She is more focused and wanting to leave. According to the staff, is still hyperverbal but easier to redirect. She also has chronic renal issues, so it may be worth doing not only a BUN and creatinine but also lithium level to see how things are going. Vistaril effective for anxiety. Continue to educate her regarding the nature of her illness. Monitor for signs of lithium toxicity since she has renal issues and is on hydrochlorothiazide. Closely work with the hospitalist to manage her medical issues. At this point, difficult to complete her mini-mental because she still seems to have significant anxiety, and her ability to sustain attention at this point is limited. No acute pain issues. We will continue to, like I said, encourage her to participate in the treatment modalities of the unit.
[2016-06-07 09:04] VITALS: BP 131/72; PULSE 82; RESP 16
--- NOTE | 2016-06-07 10:29 | PROG NOTE ---
[address] [address] PROGRESS NOTE PATIENT: UMA MARTÍNEZ : 1945 MR#: [id number] ADMIT: 04/28/2016 JOB ID: [id number] DATE: 06/07/2016 IDENTIFICATION: This is a 71-year-old, lady hospitalized involuntarily on this unit on May 29, 2016. DIAGNOSIS: AXIS I:Bipolar 1 manic with psychosis AXIS III:1. Chronic urinary tract infections on Cipro. 2. Gastroesophageal reflux disease. NARRATIVE: She is on hydrochlorothiazide, and we had ordered a lithium level yesterday and we are awaiting reports from that. Patient seen discussed with staff. She also had an elevated BUN and creatinine and so I asked them to repeat that. MEDICATIONS: 1. Abilify 5 mg a day. 2. Seroquel 25 in the morning, 50 at night. 3. Namenda 5 mg a day. 4. [place] 150 b.i.d. Staff reports that she has been using a lot of hydrocortisone cream, but she may also have been using a lot of on her hands and feet and she could be allergic to that, so we are going to hold. Vistaril seems to work for anxiety. Overall very chatty, but easy to redirect. No verbalizations of intent to harm herself or others. No spontaneous delusions. No aggressiveness. Cooperative with care. Continue to watch for dementia. Treated aggressively a UTI. Maintain a close eye on the lithium level particularly since she has renal dysfunction and is on hydrochlorothiazide which can shoot the lithium level up adjust the dose according to levels.
[2016-06-08 07:35] VITALS: BP 158/80; PULSE 82; RESP 18
[2016-06-08] MEDS: Benzocaine-Menthol Lozenge 2/Pkg PO PRN (13:49)
--- NOTE | 2016-06-08 15:52 | PCM.CHPMED ---
Subjective Date of Service: Jun 08, 2016 Primary Physician: Admitting Physician: Nicky Mays Primary Care Physician: Jose Antonio Peñaloza MD Attending Physician: Nicky Mays Chief Complaint: Chief Complaint: Skin irritation of the L hand and face PMH Allergies: Coded Allergies: chlorpromazine (Verified Allergy, Severe, 02/07/16) codeine (Verified Allergy, Severe, 02/07/16) olanzapine (Verified Allergy, Severe, 02/07/16) sulindac (Verified Allergy, Severe, Rash, 02/07/16) Social History Hx Alcohol Use: NoHx Substance Use: NoHx Tobacco Use: No Smoking Status: Never Smoker Living Arrangement: with Family Exam Vital Signs Vital Sign - Last Date Time Temp Pulse Resp B/P Pulse Ox O2 Delivery O2 Flow Rate FiO2 06/08/16 07:35 36.7 82 18 158/80 Lab and Diagnostics Result Diagram: 06/07/16 0916 Assessment & Plan Assessment HPI: Patient is a 71-year-old female who is currently admitted to the psych perez for exacerbation of her bipolar disorder. The patient has been complaining of left hand erythema, pruritus, dryness for the last 2 weeks. The patient stated that she has noticed some redness and dryness on her face as well. The patient also complains of lower extremity edema and left second toe pain secondary to hammertoe. The patient states that she feels that her swelling is improved in the lower extremities secondary to diuretic use and feels that she has lost 2 pounds and states it increases the fluid loss. The patient does complain of chronic shortness of breath as she has asthma, but the patient had no labored breathing and was able to speak sentences. The patient was consulted from psychiatry for the concern of the left hand pruritus and erythema. It is noted that the patient did have a prescription for hydrocortisone to be placed on this hand which she has been doing extremely well really using a quarter to a half a tube daily with no resolution. Home medications: Amlodipine 2.55 mg daily [place] 400 mg daily at bedtime Omeprazole 40 mg daily Quetiapine fumarate 150 mg by mouth daily at bedtime Cipro 500 mg daily Klonopin 1 mg daily at bedtime Lasix 10 mg daily Hydrochlorothiazide 12.5 mg daily Vistaril 25 mg by mouth 3 times a day Restoril 15 mg by mouth daily at bedtime when necessary insomnia Hydrocortisone cream apply to affected area twice a day Allergies: Codine Olanzapine Sulindac Chlorpromazine PMHx: Bipolar Depression Arthritis Heart dyskinesia Asthma GERD Hypertension CHF (as reported by the patient) Left hammertoe SHx: Appendectomy FHx: Unable to obtain family history from patient secondary to psychosis SocHx: Occupation: Retired RN Tobacco history: Patient denies Alcohol use: Patient denies Drug use: Patient denies ROS: A complete review of systems was performed or attempted to be performed. Please see HPI for pertinent positives, all other systems are negatives. Physical Exam: GEN: Patient was awake, alert, responding to questions with rapid speech and sometimes tangential HEENT: Pupils equal round and reactive to light, extraocular eye muscles intact , Neck soft supple, trachea midline, nomocephalic/atraumatic CV: +S1/S2, regular rate and rhythm, no murmurs auscultated Respiratory: CTAB, no wheezes, rales, rhonchi GI: +bowel sounds x4, soft, compressible, nontender to palpation EXT: no clubbing, cyanosis, trace edema in the left lower extremity, positive hammertoe on the left second toe with a small ulceration closed and healing, left hand dry skin with mild erythema Neuro: Cranial nerves II-XII grossly intact Psych: mood and affect were appropriate Assessment and Plan 71-year-old female with the complaint of left hand skin dryness and left second toe pain Eczema -Patient should stop using the hydrocortisone cream -Patient should use Aquaphor 3 times a day to the eczematous regions of the hand and face -Patient may use alcohol for at night and plates gloves over her hands to help moisturize the hands -Patient does have Vistaril as a current medication and may use this when necessary for itching Hammertoe (second left toe) -Patient should increase the size of her shoe as well as the width of her shoe to allow for more room for her toes to move. The ulceration seems to be secondary to the hammertoe rubbing against the insides of her shoe. Patient may also apply a corn pad or Band-Aid or some other type of padding to the left hammertoe to provide cushioning and allow for more healing of that site. Hypertension -currently stable -Continue home dose of hydrochlorothiazide Bipolar disorder -Currently managed by psychiatry Disposition: Patient's skin erythema and irritation is secondary to eczema. Patient should use Aquaphor to the area 3 times a day. The patient's left toe pain is secondary to hammertoe and her symptoms should be widened and padding added to the top of that toe so that it no longer rubs up against the shoe and is able to continue to heal. Patient does have some concerns about fluid in her lungs and dyspnea however on exam the patient is not fluid overloaded and lung sounds are clear. Patient has no signs of dyspnea or tachypnea and according to the patient her weight is down suggesting that there is no CHF exacerbation or acute asthma exacerbation. Thank you for the consult please feel free to reconsult should there be any further concerns or if the patient's case worsens. Signing off Problems: Pain Evaluation: Adequate Pain Control GI Prophylaxis: H2 shazia, Proton Pump Inhibitor Cathie Munguia DO Jun 08, 2016 15:52
[2016-06-08 16:05] VITALS: BP 141/79; PULSE 80; RESP 16
--- NOTE | 2016-06-08 16:55 | PCM.PNPSY ---
Subjective Date of Service Jun 08, 2016 Subjective The patient is agitated today and still focused on being discharged. She states that 11 food [employer], her son, and her will be taking her home. She was observed to be speaking to her son, , and Dr. Borden, none of whom were present. According to her , she was on Depakote for a number of years and was reasonably stable, but has not been on this medication in some time and it was under the care of Dr. Borden. The patient is concerned about the potential cost of Abilify, but according to her , it would be about $ 23/month. The patient is still refusing echocardiogram. The patient reports SOB but per internal medicine, lungs clear and pulse ox. was 98%. Patient has been rubbing Purell/lotions on skin, left hand skin appears dusky. LE edema appears improved. Sleep: 0.75+ hours Appetite: "good" Suicidal and homicidal ideation: Denies Auditory hallucinations: Ongoing with her , son and various others Visual hallucinations: Denies Other Psychotic Symptoms: disorganized, perseverative. Anxiety/depression: regarding discharge. Current Medications Current Medications Hydrocortisone 1 applic PRN PRN TOPICAL Last administered on 06/08/16t 10:19; Admin Dose 1 APPLIC; Start 06/06/16 at 21:47; Stop 06/08/16 at 15:47; Status DC Mental Status Exam Vital Signs Vital Signs Date Time Temp Pulse Resp B/P Pulse Ox O2 Delivery O2 Flow Rate FiO2 06/08/16 16:05 36.8 80 16 141/79 Appearance: Neat/well groomed Attitude: Guarded, Uncooperative, Hostile/Threatening (mild) Behavior: Distractible Affect: Labile Mood: Irritable, Dysthymic, Anxious Thought Process/Associations: Tangential, Circumstantial Speech Production: Abundant Speech Rate: Pressured Speech Articulation: Normal Thought Content: Somatic preoccupation, Perseveration Danger to Self/Suicidal Ideati: None Danger to Others: None Delusions: Paranoid (Endorses) Hallucinations: Auditory (Continuos conversations with unseen others.), Visual (Denies) Consciousness: Alert Orientation: Person, Place, Date (day after [place]), Situation Memory: Short Term Memory (Impaired) Estimate Intellectual Function: Average Basis for IQ estimate: Awareness current events, Word use/vocabulary, Educational history, Employment history Attention/Concentration & Cogn: Impaired Insight: Limited Judgement: Limited Result Diagram: 06/07/16 0916 Mental Health Plan The patient is a 71-year-old female who had been medication adherent, but had developed altered mental status over the last few days prior to admission. The urinalysis was significant for urinary tract infection which could have explained the patient's abnormal mental status, but subsequent urinalysis indicated the infection had been treated yet the patient remained psychotic. The patient also could have a progressing neurocognitive disorder worsening her psychiatric symptoms. Given the patient's family history of a half-sister with Alzheimer's disease. Her lithium level was 0.7 on 04/29/2016 as well as the subsequent follow-up lithium level, so it would be unusual for her to be lithium toxic. The patient appeared to have worsening symptoms with increase of quetiapine and so was switched to lurasidone. The patient was also quite tremulous and so lithium was decreased to 300 mg at bedtime. The patient stopped taking lurasidone after 05/21, but up to that point had been taking quetiapine 200mg nightly which was subsequently reduced to 25mg. Given the amount of time elapsed, the patient was placed on 100mg quetiapine rather than 150mg dose prior to admission. Follow-up lithium level 0.3. As psychosis is a relatively new symptom for this patient, MRI Brain was ordered and indicated: "No intracranial bleeds or mass effects. There is cerebral volume loss for age. There are periventricular and deep white matter chronic small vessel ischemic changes. Brainstem appears normal. Diffusion-weighted images show no acute ischemic insults. No chronic ischemic insults. Normal intravascular flow voids are present." According to [facility], there is no ADR or allergy regarding lithium, but she has received Beatriz and [employer] brand lithium in the past. Discussed starting Namenda 5 mg and the patient and patient's were both agreeable. The patient received a 90 day more restrictive order and will likely be transferred to [facility]. The patient appears to have had worsening of symptoms with increasing the dose of quetiapine. Reducing the dose of quetiapine does not have appeared to improved her symptoms. The patient is unwilling to take aripiprazole and refused after taking 2 doses. The patient developed tardive dyskinesia on olanzapine, delirium with risperidone, and has been very sensitive to medication side effects/changes. The patient had previously been treated with Depakote and as she is "not taking anything new," this may help augment the lithium and quetiapine. [place] AXIS I: 1. Bipolar disorder, current episode, mixed with psychotic features. 2. Major neurocognitive disorder, unspecified, likely vascular type. AXIS II: Deferred. AXIS III: Urinary tract infection resolved. See past medical history. AXIS IV: Moderate. AXIS V: Global Assessment of Functioning 30. Treatments 1. The patient is admitted to the inpatient unit and will be provided a safe and secure environment. 2. The patient is denying current active suicidality and is not in need of a one-to-one at this time. 3. The patient is encouraged to participate with group and milieu activities. 4. The patient will be seen by the treatment team on a daily basis to assess symptoms, side effects and response to treatment. 5. Continue lithium carbonate 150mg twice daily (Beatriz brand). 6. Clonazepam to 1mg nightly 7. Increase quetiapine to 100 mg nightly with 25 mg in am. 8. Aripiprazole 5 mg by mouth daily 9. Namenda 5 mg by mouth daily. 10. Start Depakote 500mg at bedtime. 11. Internal medicine referral, appreciate consult and recommendations. 12. Patient is currently on any 90 day more restrictive order and will be placed on [facility] list. Lester Cruz MD Jun 08, 2016 16:55 Lester Cruz MD Jun 08, 2016 16:55 Lester Cruz MD Jun 08, 2016 16:55
[2016-06-08] MEDS: Mineral Oil-Petr Hydrophillic 50 Gm Ointment TOPICAL SCH (18:59)
[2016-06-08] MEDS: Divalproex (QD) 500 mg ER24 Tablet PO SCH (20:17)
[2016-06-09] MEDS: Mineral Oil-Petr Hydrophillic 50 Gm Ointment TOPICAL SCH ×3 (08:01→21:56)
[2016-06-09 13:08] VITALS: BP 125/64; PULSE 67; RESP 16
--- NOTE | 2016-06-09 15:59 | PCM.PNPSY ---
Subjective Date of Service Jun 09, 2016 Subjective The patient reportedly had good visit with last night. Today, she is stating that she will be going home in the next few days. Earlier in the morning she had a disagreement with a female peer with whom she has a history of poor tolerance. The patient denied speaking to Suha Carreon today, but did state she spoke to her and son, Julian, on "the [place] line." The patient did take Depakote last night but reported having difficulty with the size of the pill. The patient later in the day was spreading lotion over her body and became agitated with RN on redirection. Sleep: 6.5 hours Appetite: "good" Suicidal and homicidal ideation: Denies Auditory hallucinations: Ongoing with her , son as above Visual hallucinations: Denies Other Psychotic Symptoms: disorganized, perseverative, but improved. Current Medications Current Medications Divalproex Sodium 500 mg HS PO Last administered on 06/08/16 20:17; Admin Dose 500 MG; Start 06/08/16 at 21:00 Mineral Oil/ Lanolin Oil 1 applic TID TOPICAL Last administered on 06/09/16 08: 01; Admin Dose 1 APPLIC; Start 06/08/16 at 20:30 Quetiapine Fumarate 100 mg HS PO Last administered on 06/08/16 20:17; Admin Dose 100 MG; Start 06/08/16 at 21:00 Mental Status Exam Vital Signs Vital Signs Date Time Temp Pulse Resp B/P Pulse Ox O2 Delivery O2 Flow Rate FiO2 06/09/16 13:08 36.1 67 16 125/64 Appearance: Neat/well groomed Attitude: Guarded, Uncooperative Behavior: Distractible Affect: Labile Mood: Irritable (mild, but improved), Dysthymic, Anxious Thought Process/Associations: Tangential, Circumstantial Speech Production: Abundant Speech Rate: Pressured Speech Articulation: Normal Thought Content: Somatic preoccupation, Perseveration Danger to Self/Suicidal Ideati: None Danger to Others: None Delusions: Paranoid (Endorses) Hallucinations: Auditory (Decreased conversations with others.), Visual (Denies ) Consciousness: Alert Orientation: Person, Place, Situation Memory: Short Term Memory (Impaired) Estimate Intellectual Function: Average Basis for IQ estimate: Awareness current events, Word use/vocabulary, Educational history, Employment history Attention/Concentration & Cogn: Impaired Insight: Limited Judgement: Limited Result Diagram: 06/07/16 0916 Mental Health Plan The patient is a 71-year-old female who had been medication adherent, but had developed altered mental status over the last few days prior to admission. The urinalysis was significant for urinary tract infection which could have explained the patient's abnormal mental status, but subsequent urinalysis indicated the infection had been treated yet the patient remained psychotic. The patient also could have a progressing neurocognitive disorder worsening her psychiatric symptoms. Given the patient's family history of a half-sister with Alzheimer's disease. Her lithium level was 0.7 on 04/29/2016 as well as the subsequent follow-up lithium level, so it would be unusual for her to be lithium toxic. The patient appeared to have worsening symptoms with increase of quetiapine and so was switched to lurasidone. The patient was also quite tremulous and so lithium was decreased to 300 mg at bedtime. The patient stopped taking lurasidone after 05/21, but up to that point had been taking quetiapine 200mg nightly which was subsequently reduced to 25mg. Given the amount of time elapsed, the patient was placed on 100mg quetiapine rather than 150mg dose prior to admission. Follow-up lithium level 0.3. As psychosis is a relatively new symptom for this patient, MRI Brain was ordered and indicated: "No intracranial bleeds or mass effects. There is cerebral volume loss for age. There are periventricular and deep white matter chronic small vessel ischemic changes. Brainstem appears normal. Diffusion-weighted images show no acute ischemic insults. No chronic ischemic insults. Normal intravascular flow voids are present." According to [facility], there is no ADR or allergy regarding lithium, but she has received Beatriz and [employer] brand lithium in the past. Discussed starting Namenda 5 mg and the patient and patient's were both agreeable. The patient received a 90 day more restrictive order and will likely be transferred to [facility]. The patient appears to have had worsening of symptoms with increasing the dose of quetiapine. Reducing the dose of quetiapine does not have appeared to improved her symptoms. The patient is unwilling to take aripiprazole and refused after taking 2 doses. The patient developed tardive dyskinesia on olanzapine, delirium with risperidone, and has been very sensitive to medication side effects/changes. The patient had previously been treated with Depakote and as she is "not taking anything new." She agreed to the medication and reported the only side effect was the size of the medication and was agreeable to taking two smaller doses. This appears to be helping with sleep and augmenting lithium and quetiapine. [place] AXIS I: 1. Bipolar disorder, current episode, mixed with psychotic features. 2. Major neurocognitive disorder, unspecified, likely vascular type. AXIS II: Deferred. AXIS III: Urinary tract infection resolved. See past medical history. AXIS IV: Moderate. AXIS V: Global Assessment of Functioning 30. Treatments 1. The patient is admitted to the inpatient unit and will be provided a safe and secure environment. 2. The patient is denying current active suicidality and is not in need of a one-to-one at this time. 3. The patient is encouraged to participate with group and milieu activities. 4. The patient will be seen by the treatment team on a daily basis to assess symptoms, side effects and response to treatment. 5. Continue lithium carbonate 150mg twice daily (Beatriz brand). 6. Clonazepam 1mg nightly 7. Increase quetiapine to 100 mg nightly with 25 mg in am. 8. Discontinue Aripiprazole 9. Namenda 5 mg by mouth daily. 10. Change Depakote to 2-250mg tablets at bedtime. 11. Internal medicine referral, appreciate consult and recommendations. 12. Patient is currently on any 90 day more restrictive order and will be placed on [facility] list. Lester Cruz MD Jun 09, 2016 15:59
[2016-06-09] MEDS ORDERED: Divalproex (QD) 250 mg ER24 Tablet PO ONE (20:03)
[2016-06-09] MEDS: Divalproex (QD) 500 mg ER24 Tablet PO SCH (21:00)
[2016-06-10] MEDS: Mineral Oil-Petr Hydrophillic 50 Gm Ointment TOPICAL SCH ×3 (08:51→21:15)
[2016-06-10] MEDS ORDERED: Valproic Acid 50 mg/mL 5 mL Solution PO SCH (09:25)
--- NOTE | 2016-06-10 22:39 | PCM.PNPSY ---
Subjective Date of Service Jun 10, 2016 Subjective Today, she is stating that she will be going home today, "my son and are coming for me." Patient is fixated on peer with whom she has had episodic disagreements and who had an outburst last night. The patient was overheard speaking to Pedro Carreon today, but did state she spoke to her and son, Julian, on "the Lord[place] line." The patient did take Depakote last night but reported having difficulty with the size of the pill. Pill size was reportedly not adjusted as had been requested. Sleep: 1 hour Appetite: "good" Suicidal and homicidal ideation: Denies Auditory hallucinations: Ongoing with her , son as above Visual hallucinations: Denies Other Psychotic Symptoms: disorganized, perseverative Current Medications Current Medications Divalproex Sodium 500 mg HS PO Last administered on 06/08/16 20:17; Admin Dose 500 MG; Start 06/08/16 at 21:00; Stop 06/10/16 at 09:26; Status DC Divalproex Sodium 500 mg STK-MED ONCE PO Last administered on 06/09/16 21:49; Admin Dose 500 MG; Start 06/09/16 at 20:03; Stop 06/09/16 at 20:05; Status DC Mineral Oil/ Lanolin Oil 1 applic TID TOPICAL Last administered on 06/10/16 15: 09; Admin Dose 1 APPLIC; Start 06/08/16 at 20:30 Quetiapine Fumarate 100 mg HS PO Last administered on 06/09/16 21:50; Admin Dose 100 MG; Start 06/08/16 at 21:00 Mental Status Exam Appearance: Neat/well groomed Attitude: Guarded, Uncooperative Behavior: Distractible Affect: Labile Mood: Irritable (mild, but improved), Dysthymic, Anxious Thought Process/Associations: Tangential, Circumstantial Speech Production: Abundant Speech Rate: Pressured Speech Articulation: Normal Thought Content: Somatic preoccupation, Perseveration Danger to Self/Suicidal Ideati: None Danger to Others: None Delusions: Paranoid (Endorses) Hallucinations: Auditory (Increased hallucinatory conversations with others.), Visual (Denies) Consciousness: Alert Orientation: Person, Place, Situation Memory: Short Term Memory (Impaired) Estimate Intellectual Function: Average Basis for IQ estimate: Awareness current events, Word use/vocabulary, Educational history, Employment history Attention/Concentration & Cogn: Impaired Insight: Limited Judgement: Limited Result Diagram: 06/07/16 0916 Mental Health Plan The patient is a 71-year-old female who had been medication adherent, but had developed altered mental status over the last few days prior to admission. The urinalysis was significant for urinary tract infection which could have explained the patient's abnormal mental status, but subsequent urinalysis indicated the infection had been treated yet the patient remained psychotic. The patient also could have a progressing neurocognitive disorder worsening her psychiatric symptoms. Given the patient's family history of a half-sister with Alzheimer's disease. Her lithium level was 0.7 on 04/29/2016 as well as the subsequent follow-up lithium level, so it would be unusual for her to be lithium toxic. The patient appeared to have worsening symptoms with increase of quetiapine and so was switched to lurasidone. The patient was also quite tremulous and so lithium was decreased to 300 mg at bedtime. The patient stopped taking lurasidone after 05/21, but up to that point had been taking quetiapine 200mg nightly which was subsequently reduced to 25mg. Given the amount of time elapsed, the patient was placed on 100mg quetiapine rather than 150mg dose prior to admission. Follow-up lithium level 0.3. As psychosis is a relatively new symptom for this patient, MRI Brain was ordered and indicated: "No intracranial bleeds or mass effects. There is cerebral volume loss for age. There are periventricular and deep white matter chronic small vessel ischemic changes. Brainstem appears normal. Diffusion-weighted images show no acute ischemic insults. No chronic ischemic insults. Normal intravascular flow voids are present." According to [facility], there is no ADR or allergy regarding lithium, but she has received Beatriz and [employer] brand lithium in the past. Discussed starting Namenda 5 mg and the patient and patient's were both agreeable. The patient received a 90 day more restrictive order and will likely be transferred to [facility]. The patient appears to have had worsening of symptoms with increasing the dose of quetiapine. Reducing the dose of quetiapine does not have appeared to improved her symptoms. The patient is unwilling to take aripiprazole and refused after taking 2 doses. The patient developed tardive dyskinesia on olanzapine, delirium with risperidone, and has been very sensitive to medication side effects/changes. The patient had previously been treated with Depakote and as she is "not taking anything new." She agreed to the medication and reported the only side effect was the size of the medication and was agreeable to taking two smaller doses. The patient slept poorly last night with increased hallucinations/delusions today. [place] AXIS I: 1. Bipolar disorder, current episode, mixed with psychotic features. 2. Major neurocognitive disorder, unspecified, likely vascular type. AXIS II: Deferred. AXIS III: Urinary tract infection resolved. See past medical history. AXIS IV: Moderate. AXIS V: Global Assessment of Functioning 30. Treatments 1. The patient is admitted to the inpatient unit and will be provided a safe and secure environment. 2. The patient is denying current active suicidality and is not in need of a one-to-one at this time. 3. The patient is encouraged to participate with group and milieu activities. 4. The patient will be seen by the treatment team on a daily basis to assess symptoms, side effects and response to treatment. 5. Continue lithium carbonate 150mg twice daily (Beatriz brand). 6. Clonazepam 1mg nightly 7. Quetiapine 100 mg nightly with 25 mg bid prn. 8. Discontinue Aripiprazole 9. Namenda 5 mg by mouth daily. 10. Change Depakote to 2-250mg tablets at bedtime. 11. Internal medicine referral, appreciate consult and recommendations. 12. Patient is currently on any 90 day more restrictive order and has been placed on [facility] list. Lester Cruz MD Jun 10, 2016 17:09
[2016-06-11 07:55] VITALS: BP 125/80; PULSE 84; RESP 17
[2016-06-11] MEDS: Mineral Oil-Petr Hydrophillic 50 Gm Ointment TOPICAL SCH ×3 (08:38→21:01)
[2016-06-11] MEDS: diphenhydrAMINE 25 mg Capsule PO PRN (13:55)
[2016-06-11] MEDS ORDERED: Ziprasidone 20 mg/mL Inj IM PRN (14:10)
--- NOTE | 2016-06-11 14:15 | PCM.PNPSY ---
Subjective Date of Service Jun 11, 2016 Subjective Today, she is stating that she will be going home today, "the [facility] and the [employer] service are coming to pick me up. Raleigh Curran. You hero. Can't talk now. Talk to Dr. Borden, your colleague, our Lord and savior and do what he says." Patient also wanted this singer songwriter to contact "Raymond Crabtree." Patient is still fixated on peer. The patient was overheard speaking to unseen others. Observed aggressively rubbing her face with a towel, resulting in rubor. The patient did take Depakote last night but would not take additional quetiapine today. Sleep: 4.75 hours Appetite: eating Suicidal and homicidal ideation: unable to assess Auditory hallucinations: Ongoing Visual hallucinations: None reported Other Psychotic Symptoms: disorganized, perseverative, delusional Current Medications Current Medications Divalproex Sodium 500 mg STK-MED ONCE PO Last administered on 06/09/16 21:49; Admin Dose 500 MG; Start 06/09/16 at 20:03; Stop 06/09/16 at 20:05; Status DC Quetiapine Fumarate 25 mg BID PRN PO Last administered on 06/10/16 21:16; Admin Dose 25 MG; Start 06/10/16 at 14:30 Mental Status Exam Appearance: Unkept Attitude: Guarded, Uncooperative, Hostile/Threatening Behavior: Distractible Affect: Labile Mood: Irritable, Anxious, Fearful Thought Process/Associations: Tangential, Circumstantial Speech Production: Abundant Speech Rate: Pressured, Other (Telegraphic) Speech Articulation: Normal Thought Content: Somatic preoccupation, Suspicious, Perseveration Danger to Self/Suicidal Ideati: None Danger to Others: None Delusions: Paranoid (Endorses) Hallucinations: Auditory (Increased hallucinatory conversations with others.), Visual (Denies) Consciousness: Alert Orientation: Person, Place, Situation (aware of hospitalization but not MRO and not discharging) Memory: Short Term Memory (Impaired) Estimate Intellectual Function: Average Basis for IQ estimate: Awareness current events, Word use/vocabulary, Educational history, Employment history Attention/Concentration & Cogn: Impaired Insight: Limited Judgement: Limited Result Diagram: 06/07/16 0916 Mental Health Plan The patient is a 71-year-old female who had been medication adherent, but had developed altered mental status over the last few days prior to admission. The urinalysis was significant for urinary tract infection which could have explained the patient's abnormal mental status, but subsequent urinalysis indicated the infection had been treated yet the patient remained psychotic. The patient also could have a progressing neurocognitive disorder worsening her psychiatric symptoms. Given the patient's family history of a half-sister with Alzheimer's disease. Her lithium level was 0.7 on 04/29/2016 as well as the subsequent follow-up lithium level, so it would be unusual for her to be lithium toxic. The patient appeared to have worsening symptoms with increase of quetiapine and so was switched to lurasidone. The patient was also quite tremulous and so lithium was decreased to 300 mg at bedtime. The patient stopped taking lurasidone after 05/21, but up to that point had been taking quetiapine 200mg nightly which was subsequently reduced to 25mg. Given the amount of time elapsed, the patient was placed on 100mg quetiapine rather than 150mg dose prior to admission. Follow-up lithium level 0.3. As psychosis is a relatively new symptom for this patient, MRI Brain was ordered and indicated: "No intracranial bleeds or mass effects. There is cerebral volume loss for age. There are periventricular and deep white matter chronic small vessel ischemic changes. Brainstem appears normal. Diffusion-weighted images show no acute ischemic insults. No chronic ischemic insults. Normal intravascular flow voids are present." According to [facility], there is no ADR or allergy regarding lithium, but she has received Beatriz and [employer] brand lithium in the past. Discussed starting Namenda 5 mg and the patient and patient's were both agreeable. The patient received a 90 day more restrictive order and will likely be transferred to [facility]. The patient appears to have had worsening of symptoms with increasing the dose of quetiapine. Reducing the dose of quetiapine does not have appeared to improved her symptoms. The patient is unwilling to take aripiprazole and refused after taking 2 doses. The patient developed tardive dyskinesia on olanzapine, delirium with risperidone, and has been very sensitive to medication side effects/changes. Patient did take ziprasidone briefly without clear side effects. The patient had previously been treated with Depakote and as she is "not taking anything new." The patient slept better last night but with increased irritability and hallucinations/delusions today. [place] AXIS I: 1. Bipolar disorder, current episode, mixed with psychotic features. 2. Major neurocognitive disorder, unspecified, likely vascular type. AXIS II: Deferred. AXIS III: Urinary tract infection resolved. See past medical history. AXIS IV: Moderate. AXIS V: Global Assessment of Functioning 30. Treatments 1. The patient is admitted to the inpatient unit and will be provided a safe and secure environment. 2. The patient is denying current active suicidality and is not in need of a one-to-one at this time. 3. The patient is encouraged to participate with group and milieu activities. 4. The patient will be seen by the treatment team on a daily basis to assess symptoms, side effects and response to treatment. 5. Continue lithium carbonate 150mg twice daily (Beatriz brand). 6. Increase Clonazepam to 1mg twice daily 7. Increase Quetiapine to 100 mg twice daily with 25 mg bid prn. 8. Ziprasidone 20mg IM bid PRN refused quetiapine 9. Namenda 5 mg by mouth daily. 10. Continue Depakote 2-250mg tablets at bedtime. 11. Internal medicine referral, appreciate consult and recommendations. 12. Consider Clozaril if no further improvement. 13. Patient is currently on any 90 day more restrictive order and has been placed on [facility] list. Lester Cruz MD Jun 11, 2016 14:15
[2016-06-11] MEDS: Divalproex (QD) 250 mg ER24 Tablet PO SCH (21:00)
[2016-06-12] MEDS: diphenhydrAMINE 25 mg Capsule PO PRN ×3 (00:12→21:59)
[2016-06-12] MEDS: hydrOXYzine Pamoate 25 mg Capsule PO PRN ×4 (00:13→21:02)
[2016-06-12] MEDS: Mineral Oil-Petr Hydrophillic 50 Gm Ointment TOPICAL SCH ×3 (08:54→20:05)
[2016-06-12 09:35] VITALS: BP 100/55; PULSE 67; RESP 16
[2016-06-12] MEDS: Divalproex (QD) 250 mg ER24 Tablet PO SCH (20:01)
--- NOTE | 2016-06-12 22:41 | PCM.PNPSY ---
Subjective Date of Service Jun 12, 2016 Subjective The patient reports that she is Breanna Borden and is to Dr. Borden. She is stating that she will be going home today. Patient fixated on rashes, when informed patient that she had been observed aggressively rubbing her face with a towel, resulting in rubor, she stated, "I did that." The patient did take Depakote last night but only took 25mg quetiapine this morning and required show of support for remainder. Sleep: 3.25 hours Appetite: eating Suicidal and homicidal ideation: denies Auditory hallucinations: Ongoing Visual hallucinations: None reported Other Psychotic Symptoms: disorganized, perseverative, delusional Current Medications Current Medications Clonazepam 1 mg BID PO Last administered on 06/12/16 08:48; Admin Dose 1 MG; Start 06/11/16 at 20:30 Divalproex Sodium 500 mg Q24H PO Last administered on 06/11/16 21:00; Admin Dose 500 MG; Start 06/11/16 at 21:00 Hydroxyzine Pamoate 25 mg Q4H PRN PO Last administered on 06/12/16 16:26; Admin Dose 25 MG; Start 06/11/16 at 13:55 Quetiapine Fumarate 100 mg BID PO Last administered on 06/12/16 13:25; Admin Dose 100 MG; Start 06/11/16 at 09:15 Ziprasidone 20 mg BID PRN IM Last administered on 06/11/16 17:34; Admin Dose 20 MG; Start 06/11/16 at 14:10 Mental Status Exam Vital Signs Vital Signs Date Time Temp Pulse Resp B/P Pulse Ox O2 Delivery O2 Flow Rate FiO2 06/12/16 09:35 36.4 67 16 100/55 Appearance: Unkept Attitude: Guarded, Uncooperative, Hostile/Threatening Behavior: Distractible Affect: Labile Mood: Irritable, Anxious, Fearful Thought Process/Associations: Tangential, Circumstantial Speech Production: Abundant Speech Rate: Pressured, Other (Telegraphic) Speech Articulation: Normal Thought Content: Somatic preoccupation, Suspicious, Perseveration Danger to Self/Suicidal Ideati: None Danger to Others: None Delusions: Paranoid (Endorses) Hallucinations: Auditory (Increased hallucinatory conversations with others.), Visual (Denies) Consciousness: Alert Orientation: Person, Place, Situation (aware of hospitalization but not MRO and not discharging) Memory: Short Term Memory (Impaired) Estimate Intellectual Function: Average Basis for IQ estimate: Awareness current events, Word use/vocabulary, Educational history, Employment history Attention/Concentration & Cogn: Impaired Insight: Limited Judgement: Limited Result Diagram: 06/07/16 0916 Mental Health Plan The patient is a 71-year-old female who had been medication adherent, but had developed altered mental status over the last few days prior to admission. The urinalysis was significant for urinary tract infection which could have explained the patient's abnormal mental status, but subsequent urinalysis indicated the infection had been treated yet the patient remained psychotic. The patient also could have a progressing neurocognitive disorder worsening her psychiatric symptoms. Given the patient's family history of a half-sister with Alzheimer's disease. Her lithium level was 0.7 on 04/29/2016 as well as the subsequent follow-up lithium level, so it would be unusual for her to be lithium toxic. The patient appeared to have worsening symptoms with increase of quetiapine and so was switched to lurasidone. The patient was also quite tremulous and so lithium was decreased to 300 mg at bedtime. The patient stopped taking lurasidone after 05/21, but up to that point had been taking quetiapine 200mg nightly which was subsequently reduced to 25mg. Given the amount of time elapsed, the patient was placed on 100mg quetiapine rather than 150mg dose prior to admission. Follow-up lithium level 0.3. As psychosis is a relatively new symptom for this patient, MRI Brain was ordered and indicated: "No intracranial bleeds or mass effects. There is cerebral volume loss for age. There are periventricular and deep white matter chronic small vessel ischemic changes. Brainstem appears normal. Diffusion-weighted images show no acute ischemic insults. No chronic ischemic insults. Normal intravascular flow voids are present." According to [facility], there is no ADR or allergy regarding lithium, but she has received Beatriz and [employer] brand lithium in the past. Discussed starting Namenda 5 mg and the patient and patient's were both agreeable. The patient received a 90 day more restrictive order and will likely be transferred to [facility]. The patient appears to have had worsening of symptoms with increasing the dose of quetiapine. Reducing the dose of quetiapine does not have appeared to improved her symptoms. The patient is unwilling to take aripiprazole and refused after taking 2 doses. The patient developed tardive dyskinesia on olanzapine, delirium with risperidone, and has been very sensitive to medication side effects/changes. Patient did take ziprasidone briefly without clear side effects. The patient had previously been treated with Depakote and as she is "not taking anything new." The patient required show of force to take increase dose of quetiapine and received IM yesterday. Patient is perhaps somewhat calmer in the morning, but is irritable in the afternoon and early evening, becoming aggressive with peer. Given patient's medication non-adherence, clozapine is not appropriate at this time, but when somewhat more stable may be an option. [place] AXIS I: 1. Bipolar disorder, current episode, mixed with psychotic features. 2. Major neurocognitive disorder, unspecified, likely vascular type. AXIS II: Deferred. AXIS III: Urinary tract infection resolved. See past medical history. AXIS IV: Moderate. AXIS V: Global Assessment of Functioning 30. Treatments 1. The patient is admitted to the inpatient unit and will be provided a safe and secure environment. 2. The patient is denying current active suicidality and is not in need of a one-to-one at this time. 3. The patient is encouraged to participate with group and milieu activities. 4. The patient will be seen by the treatment team on a daily basis to assess symptoms, side effects and response to treatment. 5. Increase lithium carbonate to 150mg daily and 300mg at bedtime (Beatriz brand). 6. Increase Clonazepam to 1mg twice daily 7. Increase Quetiapine to 100 mg twice daily with 25 mg bid prn. 8. Ziprasidone 20mg IM bid PRN refused quetiapine 9. Namenda 5 mg by mouth daily. 10. Continue Depakote 2-250mg tablets at bedtime. 11. Internal medicine referral, appreciate consult and recommendations. 12. Increase lithium to 150mg daily and 300mg nightly. Consider Clozaril if no further improvement. 13. Patient is currently on any 90 day more restrictive order and has been placed on [facility] list. Lester Cruz MD Jun 12, 2016 17:00
[2016-06-13] MEDS: diphenhydrAMINE 25 mg Capsule PO PRN ×2 (07:39→20:17)
[2016-06-13 08:25] VITALS: BP 99/64; PULSE 62; RESP 18
[2016-06-13] MEDS: Mineral Oil-Petr Hydrophillic 50 Gm Ointment TOPICAL SCH ×3 (08:30→20:19)
[2016-06-13] MEDS: hydrOXYzine Pamoate 25 mg Capsule PO PRN (12:52)
--- NOTE | 2016-06-13 13:48 | PCM.PNPSY ---
Subjective Date of Service Jun 13, 2016 Subjective The patient reports that she is Breanna Borden and is to Dr. Borden and that her ", Dr. Borden, is coming to pick me up today." She is stating that she will be going home today. Patient fixated on rashes, when informed patient that she had been observed rubbing design architect on face, she denied this. Rash is only on left hand. Patient given pads for her inflamed toe as she is refusing to put on less restrictive shoes. The patient did take [place] and Depakote last night but only took 25mg quetiapine this morning. Discussed switching to 50mg twice daily and 100mg at bedtime. As patient again appearing confused. Sleep: 3.25 hours Appetite: good Suicidal and homicidal ideation: denies Auditory hallucinations: Ongoing Visual hallucinations: Denies Other Psychotic Symptoms: disorganized, perseverative, delusional Anxiety/depression: denies Current Medications Current Medications Clonazepam 1 mg BID PO Last administered on 06/13/16 07:42; Admin Dose 1 MG; Start 06/11/16 at 20:30 Divalproex Sodium 500 mg Q24H PO Last administered on 06/12/16 20:01; Admin Dose 500 MG; Start 06/11/16 at 21:00 Hydroxyzine Pamoate 25 mg Q4H PRN PO Last administered on 06/13/16 12:52; Admin Dose 25 MG; Start 06/11/16 at 13:55 [place] Carbonate 150 mg DAILY PO Last administered on 06/13/16 07:42; Admin Dose 150 MG; Start 06/13/16 at 08:30 [place] Carbonate 300 mg HS PO Last administered on 06/12/16 20:00; Admin Dose 300 MG; Start 06/12/16 at 21:00 Ziprasidone 20 mg BID PRN IM Last administered on 06/11/16 17:34; Admin Dose 20 MG; Start 06/11/16 at 14:10 Mental Status Exam Vital Signs Vital Signs Date Time Temp Pulse Resp B/P Pulse Ox O2 Delivery O2 Flow Rate FiO2 06/13/16 08:25 36.5 62 18 99/64 Appearance: Unkept Attitude: Guarded, Uncooperative Behavior: Distractible Affect: Labile Mood: Irritable, Anxious, Fearful Thought Process/Associations: Tangential, Circumstantial Speech Production: Abundant Speech Rate: Pressured Speech Articulation: Normal Thought Content: Somatic preoccupation, Suspicious, Perseveration Danger to Self/Suicidal Ideati: None Danger to Others: None Delusions: Paranoid (Endorses) Hallucinations: Auditory (Hallucinatory conversations with others.), Visual ( Denies) Consciousness: Alert Orientation: Person, Place, Situation (aware of hospitalization but not MRO and not discharging) Memory: Short Term Memory (Impaired) Estimate Intellectual Function: Average Basis for IQ estimate: Awareness current events, Word use/vocabulary, Educational history, Employment history Attention/Concentration & Cogn: Impaired Insight: Limited Judgement: Limited Result Diagram: 06/07/16 0916 Mental Health Plan The patient is a 71-year-old female who had been medication adherent, but had developed altered mental status over the last few days prior to admission. The urinalysis was significant for urinary tract infection which could have explained the patient's abnormal mental status, but subsequent urinalysis indicated the infection had been treated yet the patient remained psychotic. The patient also could have a progressing neurocognitive disorder worsening her psychiatric symptoms. Given the patient's family history of a half-sister with Alzheimer's disease. Her lithium level was 0.7 on 04/29/2016 as well as the subsequent follow-up lithium level, so it would be unusual for her to be lithium toxic. The patient appeared to have worsening symptoms with increase of quetiapine and so was switched to lurasidone. The patient was also quite tremulous and so lithium was decreased to 300 mg at bedtime. The patient stopped taking lurasidone after 05/21, but up to that point had been taking quetiapine 200mg nightly which was subsequently reduced to 25mg. Given the amount of time elapsed, the patient was placed on 100mg quetiapine rather than 150mg dose prior to admission. Follow-up lithium level 0.3. As psychosis is a relatively new symptom for this patient, MRI Brain was ordered and indicated: "No intracranial bleeds or mass effects. There is cerebral volume loss for age. There are periventricular and deep white matter chronic small vessel ischemic changes. Brainstem appears normal. Diffusion-weighted images show no acute ischemic insults. No chronic ischemic insults. Normal intravascular flow voids are present." According to [facility], there is no ADR or allergy regarding lithium, but she has received Beatriz and [employer] brand lithium in the past. Discussed starting Namenda 5 mg and the patient and patient's were both agreeable. The patient received a 90 day more restrictive order and will likely be transferred to [facility]. The patient appears to have had worsening of symptoms with increasing the dose of quetiapine. Reducing the dose of quetiapine does not have appeared to improved her symptoms. The patient is unwilling to take aripiprazole and refused after taking 2 doses. The patient developed tardive dyskinesia on olanzapine, delirium with risperidone, and has been very sensitive to medication side effects/changes. Patient did take ziprasidone briefly without clear side effects. The patient had previously been treated with Depakote and as she is "not taking anything new " she was agreeable to Depakote. She has been putting hand design architect/cleanser on her face and has been circumventing attempts to reduce this behavior. Patient again refused quetiapine this am. Did take increased lithium last night. Left hand appears more red and swollen. Face is red and consistent with putting body cleanser/hand design architect on face. Will consult medical regarding hand rash/swelling. Given patient's medication non-adherence, clozapine is not appropriate at this time, but when somewhat more stable may be an option. Given start of being of Dr Borden, will check clean catch UA. [place] AXIS I: 1. Bipolar disorder, current episode, mixed with psychotic features. 2. Major neurocognitive disorder, unspecified, likely vascular type. AXIS II: Deferred. AXIS III: Urinary tract infection resolved. See past medical history. AXIS IV: Moderate. AXIS V: Global Assessment of Functioning 30. Treatments 1. The patient is admitted to the inpatient unit and will be provided a safe and secure environment. 2. The patient is denying current active suicidality and is not in need of a one-to-one at this time. 3. The patient is encouraged to participate with group and milieu activities. 4. The patient will be seen by the treatment team on a daily basis to assess symptoms, side effects and response to treatment. 5. Continue lithium carbonate to 150mg daily and 300mg at bedtime (Beatriz brand). 6. Continue Clonazepam 1mg twice daily 7. Change Quetiapine to 50 mg twice daily and 100mg nightly with 25 mg bid prn. 8. Ziprasidone 20mg IM bid PRN refused quetiapine 9. Namenda 5 mg by mouth daily. 10. Continue Depakote 2-250mg tablets at bedtime. 11. Refer to internal medicine for hand rash. 12. Check UA C&S if indicated CBC, CMP 13. Patient is currently on any 90 day more restrictive order and has been placed on [facility] list. Lester Cruz MD Jun 13, 2016 13:48
[2016-06-13 14:22] LABS: BASOPHILS % (AUTO) 0.3 % (0-3); EOSINOPHILS % (AUTO) 3.6 % (0-5); MONOCYTES % (AUTO) 7.6 % (4-12); Mean Corpuscular Volume 96.3 fL (81-100); Platelet Count 220 bil/L (150-400)
[2016-06-13 18:28] LABS: APPEARANCE,URINE CLEAR (CLEAR,HAZY); COLOR,URINE YELLOW (YELLOW)
[2016-06-13 18:29] LABS: OCCULT BLOOD,URINE NEGATIVE (NEGATIVE); UROBILINOGEN,URINE NORMAL (NORMAL)
--- NOTE | 2016-06-13 19:27 | PCM.PNMED ---
Subjective Date of Service Jun 13, 2016 Subjective Patient is seen in a living room in the psych floor. Patient has been seen by several hospitalists during the last 6-8 weeks, it appears that the initial consult was for rash over patient's face and arms. Hydrocortisone 1% has been tried in the past and has relieved patient's symptoms. A week ago patient was asked to stop hydrocortisone and was asked to use Aquaphor instead. Today patient states that her rash is getting worse. She states that there is a certain brand of lithium that does not cause her rash but all the rest of the lithium bands caused her rash in the past. She feels that hydrocortisone has worked for her. She denies itching. She is also concerned about a stage II ulcer on her left second toe. Exam Vital Signs Vital Sign - Last Date Time Temp Pulse Resp B/P Pulse Ox O2 Delivery O2 Flow Rate FiO2 06/13/16 08:25 36.5 62 18 99/64 Exam Gen.: Patient appears to be very agitated HEENT: Very obvious and rash over her maxillary bones chain and forehead Respiratory: No increased work of breathing Neck: Negative for thyromegaly Psych: Affect is rushed, mood is anxious Neurological: No focal deficits Skin: Diffuse erythematous uniform rash over both maxillary bones extending into forehead, philtrum and chin. Also over the dorsum of both hands much worse on the left hand. She shows me a rash that is also present over her left l lower leg, though this is not as severe. Stage II ulcer with Mepilex over read over the second toe of left foot over the first MTP IVs and Medications IV Fluids None Medications Reviewed: Medications were reviewed in detail Lab and Diagnostics Result Diagram: 06/13/16 1415 06/13/16 1415 Assessment & Plan 71-year-old female with history of remote asthma bipolar disorder, arthritis, tardive dyskinesia, GERD, heart murmur she is currently in the psych unit for bipolar disorder her medications are believed to cause a rash over her face for which hospitalist team is consulted. -Dr Darling has visited with the patient and has given her hydrocortisone ointment, bacitracin. Clinically improving with this treatment. Her psych medications have been switched to address this. 1. Acute Kidney Injury - Resolved - Secondary to dehydration - Continue Lasix 10 mg PO daily 2. Lower Extremity Edema, Bilateral - Improving - Etiology unclear - Pt refused ECHO in hospital - Continue Lasix 10 mg daily - Elevate legs while seated or laying down - LE US was negative for DVT -- Her blood pressure medication hydrochlorothiazide should help with this as well 3. Hypertension: -- I have asked staff to keep an eye on her blood pressure, and hold hydrochlorothiazide if her blood pressures continue to be low 3. 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 However I do encourage switching her over to a different mood stabilizer to eliminate this possibility. She has used 1% hydrocortisone with good results in the past however this is not meant to be for continuous usage, it is only supposed to be used as needed. Once this was ruled out autoimmune etiologies can be looked at. Dermatology should be consulted for advanced treatment with retinoids and vitamin D analogs. I recommend for now that she uses 1% hydrocortisone very sparingly over her face and use something milder than Aquaphor over the face to pack it in ( I suggested perhaps cetaphil both her cleaning her face and for moisturizing), she may use triamcinolone 0.025% over the hands (very sparingly) and pack that in with Aquaphor. Additional measures to reduce her stress will also help to resolve the rash. Anxiety and stress are known to exacerbate rashes. A dermatology consult is definitely called for this patient even as a phone consult. 4. Also L second toe MTP: Wound care consult is ordered Patient is also on ciprofloxacin as an first several weeks now, it is not clear to me if this is for UTI prophylaxis. It appears that the fresh UA is sent today. Please consider discontinuing Cipro if this is not intended for prophylaxis. We appreciate the consult. GI Prophylaxis: H2 shazia, Proton Pump Inhibitor Mariann Tyler DO Jun 13, 2016 19:27
[2016-06-13] MEDS: Divalproex (QD) 250 mg ER24 Tablet PO SCH (21:00)
[2016-06-14] MEDS: hydrOXYzine Pamoate 25 mg Capsule PO PRN ×3 (00:11→20:15)
[2016-06-14] MEDS: Mineral Oil-Petr Hydrophillic 50 Gm Ointment TOPICAL SCH ×3 (09:26→20:27)
[2016-06-14 09:40] VITALS: BP 116/63; PULSE 71; RESP 18
--- NOTE | 2016-06-14 13:40 | PCM.PNPSY ---
Subjective Date of Service Jun 14, 2016 Subjective The patient reports that she is Breanna Borden and is proxy to Dr. Borden and from [place], her , on May 11. She reports again that her ", Dr. Borden, is coming to pick me up today." She is stating that she will be going home today. Patient fixated on rashes, when informed patient that she had been observed rubbing hand candy cutter on face, she denied this. She was seen by the medical provider, and again denied this. Nursing observed her yesterday rubbing handsoap onto her face and other psychiatry provider noted her the day before using hand hand candy cutter and removed same. Rash is only on left hand. Patient given pads for her inflamed toe as she is refusing to put on less restrictive shoes. The patient did take [place] but refused Depakote last night. Patient drowsy this am, but alert after lunch Discussed switching quetiapine to 25mg twice daily and 150mg at bedtime. Also discussed reducing clonazepam dose and patient agreeable. Discussed potentially going off lithium to Depakote, but patient has to be taking Depakote routinely before this can occur. Sleep: 5 hours Appetite: good Suicidal and homicidal ideation: denies Auditory hallucinations: Ongoing Visual hallucinations: Denies Other Psychotic Symptoms: disorganized, perseverative, delusional Anxiety/depression: denies Current Medications Current Medications Hydrocortisone 1 applic BID PRN TOPICAL Last administered on 06/14/16 09:25; Admin Dose 1 APPLIC; Start 06/13/16 at 19:00 [place] Carbonate 150 mg DAILY PO Last administered on 06/14/16 08:16; Admin Dose 150 MG; Start 06/13/16 at 08:30 [place] Carbonate 300 mg HS PO Last administered on 06/13/16 20:16; Admin Dose 300 MG; Start 06/12/16 at 21:00 Quetiapine Fumarate 50 mg 08,1430 PO Last administered on 06/14/16 07:49; Admin Dose 50 MG; Start 06/13/16 at 14:30; Stop 06/14/16 at 11:30; Status DC Quetiapine Fumarate 100 mg HS PO Last administered on 06/13/16 20:17; Admin Dose 100 MG; Start 06/13/16 at 21:00; Stop 06/14/16 at 11:29; Status DC Triamcinolone Acetonide 1 applic BID TOPICAL Last administered on 06/14/16t 09: 24; Admin Dose 1 APPLIC; Start 06/13/16 at 20:30 Mental Status Exam Appearance: Unkept Attitude: Guarded, Uncooperative Behavior: Distractible Affect: Labile Mood: Irritable, Anxious, Fearful Thought Process/Associations: Tangential, Circumstantial Speech Production: Abundant Speech Rate: Pressured Speech Articulation: Normal Thought Content: Somatic preoccupation, Suspicious, Perseveration Danger to Self/Suicidal Ideati: None Danger to Others: None Delusions: Paranoid (Endorses) Hallucinations: Auditory (Hallucinatory conversations with others.), Visual ( Denies) Consciousness: Alert Orientation: Person, Place, Situation (aware of hospitalization but not MRO and not discharging) Memory: Short Term Memory (Impaired) Estimate Intellectual Function: Average Basis for IQ estimate: Awareness current events, Word use/vocabulary, Educational history, Employment history Attention/Concentration & Cogn: Impaired Insight: Limited Judgement: Limited Result Diagram: 06/13/16 1415 06/13/16 1415 Mental Health Plan The patient is a 71-year-old female who had been medication adherent, but had developed altered mental status over the last few days prior to admission. The urinalysis was significant for urinary tract infection which could have explained the patient's abnormal mental status, but subsequent urinalysis indicated the infection had been treated yet the patient remained psychotic. The patient also could have a progressing neurocognitive disorder worsening her psychiatric symptoms. Given the patient's family history of a half-sister with Alzheimer's disease. Her lithium level was 0.7 on 04/29/2016 as well as the subsequent follow-up lithium level, so it would be unusual for her to be lithium toxic. The patient appeared to have worsening symptoms with increase of quetiapine and so was switched to lurasidone. The patient was also quite tremulous and so lithium was decreased to 300 mg at bedtime. The patient stopped taking lurasidone after 05/21, but up to that point had been taking quetiapine 200mg nightly which was subsequently reduced to 25mg. Given the amount of time elapsed, the patient was placed on 100mg quetiapine rather than 150mg dose prior to admission. Follow-up lithium level 0.3. As psychosis is a relatively new symptom for this patient, MRI Brain was ordered and indicated: "No intracranial bleeds or mass effects. There is cerebral volume loss for age. There are periventricular and deep white matter chronic small vessel ischemic changes. Brainstem appears normal. Diffusion-weighted images show no acute ischemic insults. No chronic ischemic insults. Normal intravascular flow voids are present." According to [facility], there is no ADR or allergy regarding lithium, but she has received Beatriz and [employer] brand lithium in the past. Discussed starting Namenda 5 mg and the patient and patient's were both agreeable. The patient received a 90 day more restrictive order and will likely be transferred to [facility]. The patient appears to have had worsening of symptoms with increasing the dose of quetiapine. Reducing the dose of quetiapine does not have appeared to improved her symptoms. The patient is unwilling to take aripiprazole and refused after taking 2 doses. The patient developed tardive dyskinesia on olanzapine, delirium with risperidone, and has been very sensitive to medication side effects/changes. Patient did take ziprasidone briefly without clear side effects. The patient had previously been treated with Depakote and as she is "not taking anything new " she was agreeable to Depakote. She has been putting hand hand candy cutter/cleanser on her face and has been circumventing attempts to reduce this behavior. Patient refused Depakote last night, took quetiapine with significant coaxing and appeared somewhat sedated in combination with clonazepam but was alert and delusional by lunchtime. Patient seen by medical with recommendations regarding topical as operating under assumption that this is not a contact dermatitis. Informed of behavior and suggested oral prednisone may be helpful if behavior cannot be stopped; recommended prednisone 20mg bid x 5 days. Given patient's medication non-adherence, clozapine is not appropriate at this time, but when somewhat more stable may be an option. Labs without acute process. [place] AXIS I: 1. Bipolar disorder, current episode, mixed with psychotic features. 2. Major neurocognitive disorder, unspecified, likely vascular type. AXIS II: Deferred. AXIS III: Urinary tract infection resolved. See past medical history. AXIS IV: Moderate. AXIS V: Global Assessment of Functioning 30. Treatments 1. The patient is admitted to the inpatient unit and will be provided a safe and secure environment. 2. The patient is denying current active suicidality and is not in need of a one-to-one at this time. 3. The patient is encouraged to participate with group and milieu activities. 4. The patient will be seen by the treatment team on a daily basis to assess symptoms, side effects and response to treatment. 5. Continue lithium carbonate to 150mg daily and 300mg at bedtime (Beatriz brand). 6. Reduce Clonazepam to 0.5mg twice daily 7. Change Quetiapine to 25 mg twice daily and 150mg nightly with 25 mg bid prn. 8. Ziprasidone 20mg IM bid PRN refused quetiapine 9. Namenda 5 mg by mouth daily. 10. Continue Depakote 2-250mg tablets at bedtime. Check level when taking consistently for 4 days. 11. Appreciate internal medicine consult. If patient unable to be deterred from hand candy cutter, would consider prednisone 20mg twice daily x 5 days and dc topical. 12. Will add low-dose lexapro 5mg daily for obsessions/compulsions. 13. Patient is currently on any 90 day more restrictive order and has been placed on [facility] list. Lester Cruz MD Jun 14, 2016 13:40
--- NOTE | 2016-06-14 14:45 | PCM.PNMED ---
Subjective Date of Service Jun 14, 2016 Subjective Visited patient in her room with her nurse. Patient stated she did not want to be seen by internal medicine and wants her outpatient primary care physician instead. Does feel her "rash" has improved. Exam Vital Signs Vital Sign - Last Date Time Temp Pulse Resp B/P Pulse Ox O2 Delivery O2 Flow Rate FiO2 06/13/16 08:25 36.5 62 18 99/64 Exam Patient did not allow exam but I was able to note that she does have some diffuse erythema of the face, especially the cheeks, and also the dorsum of each hand this was worse on the left which appeared to have some associated swelling. IVs and Medications Medications Reviewed: Medications were reviewed in detail Lab and Diagnostics Result Diagram: 06/13/16 1415 06/13/16 1415 Assessment & Plan Facial and hand "rash". Patient refused examination today and from the distant sinus and appears to have diffuse erythema of the skin. There have been several notes from psychiatric staff that patient has been found applying hand client account specialist and/or other irritants to her scan and this is the most likely cause of the skin irritation. Continue as already planned/ordered. We will sign off. GI Prophylaxis: H2 shazia, Proton Pump Inhibitor [place] Garrison MD Jun 14, 2016 14:45
[2016-06-14] MEDS: diphenhydrAMINE 25 mg Capsule PO PRN (15:05)
[2016-06-14] MEDS: Divalproex (QD) 250 mg ER24 Tablet PO SCH (20:27)
[2016-06-15] MEDS: hydrOXYzine Pamoate 25 mg Capsule PO PRN ×2 (01:13→19:49)
[2016-06-15] MEDS: diphenhydrAMINE 25 mg Capsule PO PRN ×2 (03:12→13:54)
[2016-06-15 08:00] VITALS: BP 120/59; PULSE 73; RESP 16
[2016-06-15] MEDS: Mineral Oil-Petr Hydrophillic 50 Gm Ointment TOPICAL SCH ×3 (08:30→20:30)
--- NOTE | 2016-06-15 10:32 | PCM.PNPSY ---
Subjective Date of Service Jun 15, 2016 Subjective I spent 30 minutes both reviewing treatment plan with clinical team, interviewing the patient and providing supportive/educational psychotherapy. I spent more than 50% of the time counseling the patient. I reviewed the treatment plan with the patient and discussed options available including the potential risks, benefits and side effects. Breanna reports a complete resolution of symptoms with normal thought organization and mood stability. Staff reports that she has been "really agitated all week". She is refusing to shower. She is responding to internal stimulation and reporting auditory hallucinations of [employer] Dr. Hi and her . She intermittently is yelling at the top of her lungs when she gets upset. It is very difficult to console her but relatively easy to redirect. Her face and left hand rash are improved. Nursing staff reported that they saw her taking soap and applying that to her face and her left hand and leaving it on. It is likely that this is the source of the rash. She has an ulcer on her left second toe. Nursing staff is applying ointment and wound care service consulted. Staff report that she attempts to participating in one-to-one unit and group activities. She slept to hours. She denies medication side effects but adamantly is opposed to any type of change in medications. She does have a medication second opinion override by Dr. Garcia on 06/11/2016. Patient was able to identify her medications and what they were used to treat. Current Medications Current Medications Clonazepam 0.5 mg BID PO Last administered on 06/15/16 07:59; Admin Dose 0.5 MG ; Start 06/14/16 at 20:30 Hydrocortisone 1 applic BID PRN TOPICAL Last administered on 06/14/16 20:16; Admin Dose 1 APPLIC; Start 06/13/16 at 19:00 Quetiapine Fumarate 50 mg 08,1430 PO Last administered on 06/14/16 07:49; Admin Dose 50 MG; Start 06/13/16 at 14:30; Stop 06/14/16 at 11:30; Status DC Quetiapine Fumarate 100 mg HS PO Last administered on 06/13/16 20:17; Admin Dose 100 MG; Start 06/13/16 at 21:00; Stop 06/14/16 at 11:29; Status DC Quetiapine Fumarate 150 mg HS PO Last administered on 06/14/16 20:13; Admin Dose 150 MG; Start 06/14/16 at 21:00 Triamcinolone Acetonide 1 applic BID TOPICAL Last administered on 06/14/16 20: 16; Admin Dose 1 APPLIC; Start 06/13/16 at 20:30 Mental Status Exam Appearance: Unkept Attitude: Guarded, Uncooperative Behavior: Distractible Affect: Labile Mood: Irritable, Anxious, Fearful Thought Process/Associations: Tangential, Circumstantial Speech Production: Abundant Speech Rate: Pressured Speech Articulation: Normal Thought Content: Somatic preoccupation, Suspicious, Perseveration Danger to Self/Suicidal Ideati: None Danger to Others: None Delusions: Paranoid (Endorses) Hallucinations: Auditory (Hallucinatory conversations with others.), Visual ( Denies) Consciousness: Alert Orientation: Person, Place, Situation (aware of hospitalization but not MRO and not discharging) Memory: Short Term Memory (Impaired) Estimate Intellectual Function: Average Basis for IQ estimate: Awareness current events, Word use/vocabulary, Educational history, Employment history Attention/Concentration & Cogn: Impaired Insight: Limited Judgement: Limited Result Diagram: 06/13/16 1415 06/13/16 1415 Mental Health Plan The patient is a 71-year-old female who developed altered mental status for several days prior to admission. She remains in an acute manic state with significant disorganization of thought , poor judgment, poor insight and poor impulse control. She had significant memory impairment prior to admission and this is exacerbated by her current manic condition suggesting a potential progressing neurocognitive disorder. Breanna remains in a manic stage of bipolar mood disorder. When she was here recently she was in a depressed state for over 6 weeks. I believe she needs time on the current medications and the structure of our unit to reestablish emotional stability and reality based thinking. She is highly sensitive to medications and it has been difficult to adjust medications to [place] because she tends to get toxic and have significant side effects. As a result we are having to go very slowly with both medications. At present we are trying to stabilize her with a combination of low-dose lithium Klonopin Seroquel Abilify and Namenda. [place] AXIS I: 1. Bipolar disorder, current episode, mixed with psychotic features. 2. Major neurocognitive disorder, unspecified, likely vascular type. AXIS II: Deferred. AXIS III: Urinary tract infection resolved. See past medical history. AXIS IV: Moderate. AXIS V: Global Assessment of Functioning 30. Treatments Patient is being provided with a high degree of safety through the structure and active adult engagement. We will focus on developing improved coping skills and identifying stressors that may have led to current episode. We will attempt to: Integrate into therapeutic groups, milieu and individual therapy. Maintain in a closely monitored and structured unit Provide low-stimulation environment Obtain collateral data to assist in treatment planning Assess degree of lability of affect and impulse control Complete safety plan Decrease frequency of relapse and need for re-hospitalization Establish a consistent sleep pattern Medication effective in stabilization of mood and/or thought process Tolerates medication without side effects Patient will be on the following psychiatric medications: lithium carbonate to 150mg daily and 300mg at bedtime (Beatriz brand). Clonazepam to 0.5mg twice daily Quetiapine to 25 mg twice daily and 150mg nightly with 25 mg bid prn. Ziprasidone 20mg IM bid PRN refused quetiapine Depakote 2-250mg tablets at bedtime. Check level when taking consistently for 4 days. Namenda 5 mg by mouth daily. lexapro 5mg daily for obsessions/compulsions. Internal medicine consultation recommendations appreciated regarding: Facial rash and hand rash most likely caused from excess use of Hospital soap nursing staff monitoring soap use and applying ointments daily Ulcer on second digit of left foot with daily dressing changes and no shoes to encourage healing If patient unable to be deterred from technical sales engineer, would consider prednisone 20mg twice daily x 5 days and dc topical. Hydrocortisone 1 applic BID PRN TOPICAL Address patient's legal status Patient is on a 90 day involuntary treatment hold. Disposition: [facility] Gunner Palacios MD Jun 15, 2016 10:32
[2016-06-15] MEDS: Divalproex (QD) 250 mg ER24 Tablet PO SCH (21:00)
[2016-06-16] MEDS: hydrOXYzine Pamoate 25 mg Capsule PO PRN ×3 (00:52→21:23)
[2016-06-16] MEDS: Mineral Oil-Petr Hydrophillic 50 Gm Ointment TOPICAL SCH ×3 (09:23→21:21)
[2016-06-16] MEDS: diphenhydrAMINE 25 mg Capsule PO PRN ×2 (09:57→10:37)
--- NOTE | 2016-06-16 12:08 | PCM.PNPSY ---
Subjective Date of Service Jun 16, 2016 Subjective I spent 30 minutes both reviewing treatment plan with clinical team, interviewing the patient and providing supportive/educational psychotherapy. I spent less than 50% of the time counseling the patient as patient could only tolerate a brief interaction but for becoming upset and starting to converse with internal voices. Breanna reports a complete resolution of symptoms with normal thought organization and mood stability. Staff reports that she continues to be agitated difficult to console. She is refusing to shower. She again today is responding to internal stimulation and reporting auditory hallucinations of [employer] Dr. Hi and her . She intermittently is yelling at the top of her lungs when she gets upset. It is very difficult to console her coming more difficult to redirect. Her face and left hand rash are improved. Nursing staff reported that they saw her taking soap and applying that to her face and her left hand and leaving it on. It is likely that this is the source of the rash. She has an ulcer on her left second toe. Nursing staff is applying ointment and wound care service consulted. Staff report that she attempts to participating in one-to-one unit and group activities. She slept to hours. She denies medication side effects but adamantly is opposed to any type of change in medications. She does have a medication second opinion override by Dr. Garcia on 06/11/2016. Patient was able to identify her medications and what they were used to treat. Current Medications Current Medications Clonazepam 0.5 mg BID PO Last administered on 06/15/16 19:49; Admin Dose 0.5 MG ; Start 06/14/16 at 20:30 Quetiapine Fumarate 25 mg 08,1430 PO Last administered on 06/16/16 08:58; Admin Dose 25 MG; Start 06/15/16 at 20:30 Quetiapine Fumarate 150 mg HS PO Last administered on 06/15/16 19:48; Admin Dose 150 MG; Start 06/14/16 at 21:00 Mental Status Exam Appearance: Unkept Attitude: Guarded, Uncooperative Behavior: Distractible Affect: Labile Mood: Irritable, Anxious, Fearful Thought Process/Associations: Tangential, Circumstantial Speech Production: Abundant Speech Rate: Pressured Speech Articulation: Normal Thought Content: Somatic preoccupation, Suspicious, Perseveration Danger to Self/Suicidal Ideati: None Danger to Others: None Delusions: Paranoid (Endorses) Hallucinations: Auditory (Hallucinatory conversations with others.), Visual ( Denies) Consciousness: Alert Orientation: Person, Place, Situation (aware of hospitalization but not MRO and not discharging) Memory: Short Term Memory (Impaired) Estimate Intellectual Function: Average Basis for IQ estimate: Awareness current events, Word use/vocabulary, Educational history, Employment history Attention/Concentration & Cogn: Impaired Insight: Limited Judgement: Limited Result Diagram: 06/13/16 1415 06/13/16 1415 Mental Health Plan The patient is a 71-year-old female who developed altered mental status for several days prior to admission. She remains in an acute manic state with significant disorganization of thought , poor judgment, poor insight and poor impulse control. She had significant memory impairment prior to admission and this is exacerbated by her current manic condition suggesting a potential progressing neurocognitive disorder. Breanna remains in a manic stage of bipolar mood disorder. When she was here recently she was in a depressed state for over 6 weeks. I believe she needs time on the current medications and the structure of our unit to reestablish emotional stability and reality based thinking. She is highly sensitive to medications and it has been difficult to adjust medications to [place] because she tends to get toxic and have significant side effects. As a result we are having to go very slowly with both medications. At present we are trying to stabilize her with a combination of low-dose lithium Klonopin Seroquel Abilify and Namenda. We will continue to attempt to engage Breanna in a therapeutic alliance as well as encourage taking her medications as prescribed. [place] AXIS I: 1. Bipolar disorder, current episode, mixed with psychotic features. 2. Major neurocognitive disorder, unspecified, likely vascular type. AXIS II: Deferred. AXIS III: Urinary tract infection resolved. See past medical history. AXIS IV: Moderate. AXIS V: Global Assessment of Functioning 30. Treatments Patient is being provided with a high degree of safety through the structure and active adult engagement. We will focus on developing improved coping skills and identifying stressors that may have led to current episode. We will attempt to: Integrate into therapeutic groups, milieu and individual therapy. Maintain in a closely monitored and structured unit Provide low-stimulation environment Obtain collateral data to assist in treatment planning Assess degree of lability of affect and impulse control Complete safety plan Decrease frequency of relapse and need for re-hospitalization Establish a consistent sleep pattern Medication effective in stabilization of mood and/or thought process Tolerates medication without side effects Patient will be on the following psychiatric medications: lithium carbonate to 150mg daily and 300mg at bedtime (Beatriz brand). Clonazepam to 0.5mg twice daily Quetiapine to 25 mg twice daily and 150mg nightly with 25 mg bid prn. Ziprasidone 20mg IM bid PRN refused quetiapine Depakote 2-250mg tablets at bedtime. Check level when taking consistently for 4 days. Namenda 5 mg by mouth daily. lexapro 5mg daily for obsessions/compulsions. Internal medicine consultation recommendations appreciated regarding: Facial rash and hand rash most likely caused from excess use of Hospital soap nursing staff monitoring soap use and applying ointments daily Ulcer on second digit of left foot with daily dressing changes and no shoes to encourage healing If patient unable to be deterred from nursing program director, would consider prednisone 20mg twice daily x 5 days and dc topical. Hydrocortisone 1 applic BID PRN TOPICAL Address patient's legal status Patient is on a 90 day involuntary treatment hold. Disposition: [facility] Gunner Palacios MD Jun 16, 2016 12:08
[2016-06-16 13:19] VITALS: BP 125/61; PULSE 72; RESP 18
[2016-06-16] MEDS: Divalproex (QD) 250 mg ER24 Tablet PO SCH (21:00)
[2016-06-16] MEDS: Alum-Mag Hydrox-Simeth 30 mL Suspension PO PRN (21:23)
[2016-06-17] MEDS: Mineral Oil-Petr Hydrophillic 50 Gm Ointment TOPICAL SCH ×3 (09:10→21:05)
[2016-06-17 10:30] VITALS: BP 142/79; PULSE 75; RESP 18
--- NOTE | 2016-06-17 12:59 | PCM.PNPSY ---
Subjective Date of Service Jun 17, 2016 Subjective I spent 30 minutes both reviewing treatment plan with clinical team, interviewing the patient and providing supportive/educational psychotherapy. I spent less than 50% of the time counseling the patient as patient could only tolerate a brief interaction but for becoming upset and starting to converse with internal voices. Breanna reports a complete resolution of symptoms with normal thought organization and mood stability. Staff reports that she continues to be agitated difficult to console. It is very difficult to console her and is more difficult to redirect. She slept 1 hour. She denies medication side effects but adamantly is opposed to any type of change in medications. She does have a medication second opinion override by Dr. Garcia on 06/11/2016. Patient was able to identify her medications and what they were used to treat. Current Medications Current Medications Quetiapine Fumarate 25 mg 08,1430 PO Last administered on 06/17/16t 09:02; Admin Dose 25 MG; Start 06/15/16 at 20:30 Mental Status Exam Appearance: Unkept Attitude: Guarded, Uncooperative Behavior: Distractible Affect: Labile Mood: Irritable, Anxious, Fearful Thought Process/Associations: Tangential, Circumstantial Speech Production: Abundant Speech Rate: Pressured Speech Articulation: Normal Thought Content: Somatic preoccupation, Suspicious, Perseveration Danger to Self/Suicidal Ideati: None Danger to Others: None Delusions: Paranoid (Endorses) Hallucinations: Auditory (Hallucinatory conversations with others.), Visual ( Denies) Consciousness: Alert Orientation: Person, Place, Situation (aware of hospitalization but not MRO and not discharging) Memory: Short Term Memory (Impaired) Estimate Intellectual Function: Average Basis for IQ estimate: Awareness current events, Word use/vocabulary, Educational history, Employment history Attention/Concentration & Cogn: Impaired Insight: Limited Judgement: Limited Result Diagram: 06/13/16 1415 06/13/16 1415 Mental Health Plan The patient is a 71-year-old female who developed altered mental status for several days prior to admission. She remains in an acute manic state with significant disorganization of thought , poor judgment, poor insight and poor impulse control. She had significant memory impairment prior to admission and this is exacerbated by her current manic condition suggesting a potential progressing neurocognitive disorder. Breanna remains in a manic stage of bipolar mood disorder. When she was here recently she was in a depressed state for over 6 weeks. I believe she needs time on the current medications and the structure of our unit to reestablish emotional stability and reality based thinking. She is highly sensitive to medications and it has been difficult to adjust medications to [place] because she tends to get toxic and have significant side effects. As a result we are having to go very slowly with both medications. At present we are trying to stabilize her with a combination of low-dose lithium Klonopin Seroquel Abilify and Namenda. We will continue to attempt to engage Breanna in a therapeutic alliance as well as encourage taking her medications as prescribed. [place] AXIS I: 1. Bipolar disorder, current episode, mixed with psychotic features. 2. Major neurocognitive disorder, unspecified, likely vascular type. AXIS II: Deferred. AXIS III: Urinary tract infection resolved. See past medical history. AXIS IV: Moderate. AXIS V: Global Assessment of Functioning 30. Treatments Patient is being provided with a high degree of safety through the structure and active adult engagement. We will focus on developing improved coping skills and identifying stressors that may have led to current episode. We will attempt to: Integrate into therapeutic groups, milieu and individual therapy. Maintain in a closely monitored and structured unit Provide low-stimulation environment Obtain collateral data to assist in treatment planning Assess degree of lability of affect and impulse control Complete safety plan Decrease frequency of relapse and need for re-hospitalization Establish a consistent sleep pattern Medication effective in stabilization of mood and/or thought process Tolerates medication without side effects Patient will be on the following psychiatric medications: lithium carbonate to 150mg daily and 300mg at bedtime (Beatriz brand). Clonazepam to 0.5mg twice daily Quetiapine to 25 mg twice daily and 150mg nightly with 25 mg bid prn. Ziprasidone 20mg IM bid PRN refused quetiapine Depakote 2-250mg tablets at bedtime. Check level when taking consistently for 4 days. Namenda 5 mg by mouth daily. lexapro 5mg daily for obsessions/compulsions. Address patient's legal status Patient is on a 90 day involuntary treatment hold. Disposition: [facility] Gunner Palacios MD Jun 17, 2016 12:59
[2016-06-17] MEDS: diphenhydrAMINE 25 mg Capsule PO PRN (16:04)
[2016-06-17] MEDS: Alum-Mag Hydrox-Simeth 30 mL Suspension PO PRN (19:48)
[2016-06-17] MEDS: Divalproex (QD) 250 mg ER24 Tablet PO SCH ×2 (20:49→21:00)
[2016-06-17] MEDS: hydrOXYzine Pamoate 25 mg Capsule PO PRN (20:51)
[2016-06-18] MEDS: Mineral Oil-Petr Hydrophillic 50 Gm Ointment TOPICAL SCH ×3 (08:30→21:11)
[2016-06-18] MEDS: hydrOXYzine Pamoate 25 mg Capsule PO PRN ×4 (10:56→22:51)
--- NOTE | 2016-06-18 13:44 | PCM.PNPSY ---
Subjective Date of Service Jun 18, 2016 Subjective I spent 30 minutes both reviewing treatment plan with clinical team, interviewing the patient and providing supportive/educational psychotherapy. I spent less than 50% of the time counseling the patient as patient could only tolerate a brief interaction but was less upset and not conversing with internal voices. Breanna reports a complete resolution of symptoms with normal thought organization and mood stability. Staff reports that she continues to be agitated difficult to console. It is very difficult to console her and is becoming more difficult to redirect. She slept 1 hour. She denies medication side effects but adamantly is opposed to any type of change in medications. She does have a medication second opinion override by Dr. Garcia on 06/11/2016. Patient was able to identify her medications and what they were used to treat. Mental Status Exam Appearance: Unkept Attitude: Guarded, Uncooperative Behavior: Distractible Affect: Labile Mood: Irritable, Anxious, Fearful Thought Process/Associations: Tangential, Circumstantial Speech Production: Abundant Speech Rate: Pressured Speech Articulation: Normal Thought Content: Somatic preoccupation, Suspicious, Perseveration Danger to Self/Suicidal Ideati: None Danger to Others: None Delusions: Paranoid (Endorses) Hallucinations: Auditory (Hallucinatory conversations with others.), Visual ( Denies) Consciousness: Alert Orientation: Person, Place, Situation (aware of hospitalization but not MRO and not discharging) Memory: Short Term Memory (Impaired) Estimate Intellectual Function: Average Basis for IQ estimate: Awareness current events, Word use/vocabulary, Educational history, Employment history Attention/Concentration & Cogn: Impaired Insight: Limited Judgement: Limited Result Diagram: 06/13/16 1415 06/13/16 1415 Mental Health Plan The patient is a 71-year-old female who developed altered mental status for several days prior to admission. She remains in an acute manic state with significant disorganization of thought , poor judgment, poor insight and poor impulse control. She had significant memory impairment prior to admission and this is exacerbated by her current manic condition suggesting a potential progressing neurocognitive disorder. Breanna remains in a manic stage of bipolar mood disorder. When she was here recently she was in a depressed state for over 6 weeks. I believe she needs time on the current medications and the structure of our unit to reestablish emotional stability and reality based thinking. She is highly sensitive to medications and it has been difficult to adjust medications to [place] because she tends to get toxic and have significant side effects. As a result we are having to go very slowly with both medications. At present we are trying to stabilize her with a combination of low-dose lithium Klonopin Seroquel Abilify and Namenda. We will continue to attempt to engage Breanna in a therapeutic alliance as well as encourage taking her medications as prescribed. It may be necessary to try her off Namenda next week to see if this may be overstimulating her. I want to give her a reasonable about a time On her current medication regimen. [place] AXIS I: 1. Bipolar disorder, current episode, mixed with psychotic features. 2. Major neurocognitive disorder, unspecified, likely vascular type. AXIS II: Deferred. AXIS III: Urinary tract infection resolved. See past medical history. AXIS IV: Moderate. AXIS V: Global Assessment of Functioning 30. Treatments Patient is being provided with a high degree of safety through the structure and active adult engagement. We will focus on developing improved coping skills and identifying stressors that may have led to current episode. We will attempt to: Integrate into therapeutic groups, milieu and individual therapy. Maintain in a closely monitored and structured unit Provide low-stimulation environment Obtain collateral data to assist in treatment planning Assess degree of lability of affect and impulse control Complete safety plan Decrease frequency of relapse and need for re-hospitalization Establish a consistent sleep pattern Medication effective in stabilization of mood and/or thought process Tolerates medication without side effects Patient will be on the following psychiatric medications: lithium carbonate to 150mg daily and 300mg at bedtime (Beatriz brand). Clonazepam to 0.5mg twice daily Quetiapine to 25 mg twice daily and 150mg nightly with 25 mg bid prn. Ziprasidone 20mg IM bid PRN refused quetiapine Depakote 2-250mg tablets at bedtime. Check level when taking consistently for 4 days. Namenda 5 mg by mouth daily. lexapro 5mg daily for obsessions/compulsions. Address patient's legal status Patient is on a 90 day involuntary treatment hold. Disposition: [facility] Gunner Palacios MD Jun 18, 2016 13:44
[2016-06-18] MEDS: diphenhydrAMINE 25 mg Capsule PO PRN (14:29)
[2016-06-18] MEDS: Divalproex (QD) 250 mg ER24 Tablet PO SCH (20:55)
[2016-06-19] MEDS: diphenhydrAMINE 25 mg Capsule PO PRN ×2 (00:42→14:07)
[2016-06-19] MEDS: hydrOXYzine Pamoate 25 mg Capsule PO PRN ×2 (03:21→11:50)
[2016-06-19] MEDS: Mineral Oil-Petr Hydrophillic 50 Gm Ointment TOPICAL SCH ×3 (08:30→21:35)
[2016-06-19 11:05] VITALS: BP 121/75; PULSE 75; RESP 16
--- NOTE | 2016-06-19 14:53 | PCM.PNPSY ---
Subjective Date of Service Jun 19, 2016 Subjective I spent 30 minutes both reviewing treatment plan with clinical team, interviewing the patient and providing supportive/educational psychotherapy. I spent less than 50% of the time counseling the patient as patient could only tolerate a brief interaction she was very upset and began to converse loudly with internal voices. She is associating me as being the reason for her care home. She is unable to understand why she cannot be discharged today. Breanna reports a complete resolution of symptoms with normal thought organization and mood stability. Staff reports that she continues to be agitated difficult to console. It is very difficult to console her and is becoming more difficult to redirect. She slept only 2 hours. Concerned she may be overstimulated with the Namenda and antidepressant. She denies medication side effects but adamantly is opposed to any type of change in medications. She does have a medication second opinion override by Dr. Garcia on 06/11/2016. Patient was able to identify her medications and what they were used to treat. Mental Status Exam Appearance: Unkept Attitude: Guarded, Uncooperative Behavior: Distractible Affect: Labile Mood: Irritable, Anxious, Fearful Thought Process/Associations: Tangential, Circumstantial Speech Production: Abundant Speech Rate: Pressured Speech Articulation: Normal Thought Content: Somatic preoccupation, Suspicious, Perseveration Danger to Self/Suicidal Ideati: None Danger to Others: None Delusions: Paranoid (Endorses) Hallucinations: Auditory (Hallucinatory conversations with others.), Visual ( Denies) Consciousness: Alert Orientation: Person, Place, Situation (aware of hospitalization but not MRO and not discharging) Memory: Short Term Memory (Impaired) Estimate Intellectual Function: Average Basis for IQ estimate: Awareness current events, Word use/vocabulary, Educational history, Employment history Attention/Concentration & Cogn: Impaired Insight: Limited Judgement: Limited Result Diagram: 06/13/16 1415 06/13/16 1415 Mental Health Plan The patient is a 71-year-old female who developed altered mental status for several days prior to admission. She remains in an acute manic state with significant disorganization of thought , poor judgment, poor insight and poor impulse control. She had significant memory impairment prior to admission and this is exacerbated by her current manic condition suggesting a potential progressing neurocognitive disorder. Breanna remains in a manic stage of bipolar mood disorder. When she was here recently she was in a depressed state for over 6 weeks. I believe she needs time on the current medications and the structure of our unit to reestablish emotional stability and reality based thinking. She is highly sensitive to medications and it has been difficult to adjust medications to [place] because she tends to get toxic and have significant side effects. As a result we are having to go very slowly with both medications. We were trying to stabilize her with a combination of low-dose lithium Klonopin Seroquel Abilify and Namenda. We will continue to attempt to engage Breanna in a therapeutic alliance as well as encourage taking her medications as prescribed. I am recommending a trial off Namenda and her antidepressant to see if this may be overstimulating her. [place] AXIS I: 1. Bipolar disorder, current episode, mixed with psychotic features. 2. Major neurocognitive disorder, unspecified, likely vascular type. AXIS II: Deferred. AXIS III: Urinary tract infection resolved. See past medical history. AXIS IV: Moderate. AXIS V: Global Assessment of Functioning 30. Treatments Patient is being provided with a high degree of safety through the structure and active adult engagement. We will focus on developing improved coping skills and identifying stressors that may have led to current episode. We will attempt to: Integrate into therapeutic groups, milieu and individual therapy. Maintain in a closely monitored and structured unit Provide low-stimulation environment Obtain collateral data to assist in treatment planning Assess degree of lability of affect and impulse control Complete safety plan Decrease frequency of relapse and need for re-hospitalization Establish a consistent sleep pattern Medication effective in stabilization of mood and/or thought process Tolerates medication without side effects Patient will be on the following psychiatric medications: lithium carbonate to 150mg daily and 300mg at bedtime (Beatriz brand). Clonazepam to 0.5mg twice daily Quetiapine to 25 mg twice daily and 150mg nightly with 25 mg bid prn. Ziprasidone 20mg IM bid PRN refused quetiapine Depakote 2-250mg tablets at bedtime. Check level when taking consistently for 4 days. Discontinue Namenda 5 mg by mouth daily. Discontinue lexapro 5mg daily for obsessions/compulsions. Address patient's legal status Patient is on a 90 day involuntary treatment hold. Disposition: [facility] Gunner Palacios MD Jun 19, 2016 14:53
[2016-06-19] MEDS: Divalproex (QD) 250 mg ER24 Tablet PO SCH (21:02)
[2016-06-20] MEDS: diphenhydrAMINE 25 mg Capsule PO PRN ×2 (00:23→21:35)
[2016-06-20] MEDS: hydrOXYzine Pamoate 25 mg Capsule PO PRN ×3 (02:40→16:40)
[2016-06-20] MEDS: Mineral Oil-Petr Hydrophillic 50 Gm Ointment TOPICAL SCH ×3 (08:47→21:32)
[2016-06-20 10:35] VITALS: BP 126/69; PULSE 74; RESP 16
--- NOTE | 2016-06-20 12:21 | PCM.PNPSY ---
Subjective Date of Service Jun 20, 2016 Subjective I spent 30 minutes both reviewing treatment plan with clinical team, interviewing the patient and providing supportive/educational psychotherapy. I spent less than 50% of the time counseling the patient as patient could only tolerate a brief interaction she was very upset and began to converse loudly with internal voices. She is associating me as being the reason for her prison. She is unable to understand why she cannot be discharged today. Breanna reports a complete resolution of symptoms with normal thought organization and mood stability. Staff reports that she continues to be agitated and difficult to console. It is very difficult to console her but after a good night sleep it is more easy to redirect. She slept 5 hours and this appears to be related to the decrease in Namenda and antidepressant. She denies medication side effects and remains adamantly opposed to any type of change in medications. She does have a medication second opinion override by Dr. Garcia on 06/11/2016. Patient was able to identify her medications and what they were used to treat. Mental Status Exam Vital Signs Vital Signs Date Time Temp Pulse Resp B/P Pulse Ox O2 Delivery O2 Flow Rate FiO2 06/20/16 10:35 36.4 74 16 126/69 Appearance: Unkept Attitude: Guarded, Uncooperative Behavior: Distractible Affect: Labile Mood: Irritable, Anxious, Fearful Thought Process/Associations: Tangential, Circumstantial Speech Production: Abundant Speech Rate: Pressured Speech Articulation: Normal Thought Content: Somatic preoccupation, Suspicious, Perseveration Danger to Self/Suicidal Ideati: None Danger to Others: None Delusions: Paranoid (Endorses) Hallucinations: Auditory (Hallucinatory conversations with others.), Visual ( Denies) Consciousness: Alert Orientation: Person, Place, Situation (aware of hospitalization but not MRO and not discharging) Memory: Short Term Memory (Impaired) Estimate Intellectual Function: Average Basis for IQ estimate: Awareness current events, Word use/vocabulary, Educational history, Employment history Attention/Concentration & Cogn: Impaired Insight: Limited Judgement: Limited Mental Health Plan The patient is a 71-year-old female who developed altered mental status for several days prior to admission. She remains in an acute manic state with significant disorganization of thought , poor judgment, poor insight and poor impulse control. She had significant memory impairment prior to admission and this is exacerbated by her current manic condition suggesting a potential progressing neurocognitive disorder. Breanna remains in a manic stage of bipolar mood disorder. When she was here recently she was in a depressed state for over 6 weeks. I believe she needs time on the current medications and the structure of our unit to reestablish emotional stability and reality based thinking. She is highly sensitive to medications and it has been difficult to adjust medications to [place] because she tends to get toxic and have significant side effects. As a result we are having to go very slowly with both medications. We were trying to stabilize her with a combination of low-dose lithium Klonopin Seroquel Abilify and Namenda. We will continue to attempt to engage Breanna in a therapeutic alliance as well as encourage taking her medications as prescribed. She finally is appearing to make gradual and steady improvement over the past 48 hours. [place] AXIS I: 1. Bipolar disorder, current episode, mixed with psychotic features. 2. Major neurocognitive disorder, unspecified, likely vascular type. AXIS II: Deferred. AXIS III: Urinary tract infection resolved. See past medical history. AXIS IV: Moderate. AXIS V: Global Assessment of Functioning 30. Treatments Patient is being provided with a high degree of safety through the structure and active adult engagement. We will focus on developing improved coping skills and identifying stressors that may have led to current episode. We will attempt to: Integrate into therapeutic groups, milieu and individual therapy. Maintain in a closely monitored and structured unit Provide low-stimulation environment Obtain collateral data to assist in treatment planning Assess degree of lability of affect and impulse control Complete safety plan Decrease frequency of relapse and need for re-hospitalization Establish a consistent sleep pattern Medication effective in stabilization of mood and/or thought process Tolerates medication without side effects Patient will be on the following psychiatric medications: lithium carbonate to 150mg daily and 300mg at bedtime (Beatriz brand). Clonazepam to 0.5mg twice daily Quetiapine to 25 mg twice daily and 150mg nightly with 25 mg bid prn. Ziprasidone 20mg IM bid PRN refused quetiapine Depakote 2-250mg tablets at bedtime. Check level when taking consistently for 4 days. Address patient's legal status Patient is on a 90 day involuntary treatment hold. Disposition: [facility] Gunner Palacios MD Jun 20, 2016 12:21
[2016-06-20] MEDS: Divalproex (QD) 250 mg ER24 Tablet PO SCH ×2 (21:30→21:39)
[2016-06-21] MEDS: diphenhydrAMINE 25 mg Capsule PO PRN ×2 (05:23→21:00)
[2016-06-21] MEDS: Mineral Oil-Petr Hydrophillic 50 Gm Ointment TOPICAL SCH ×3 (08:39→21:01)
[2016-06-21 08:45] VITALS: BP 102/62; PULSE 67; RESP 16
[2016-06-21] MEDS: hydrOXYzine Pamoate 25 mg Capsule PO PRN ×2 (13:09→21:00)
--- NOTE | 2016-06-21 13:38 | PCM.PNPSY ---
Subjective Date of Service Jun 21, 2016 Subjective I spent 30 minutes both reviewing treatment plan with clinical team, interviewing the patient and providing supportive/educational psychotherapy. I spent less than 50% of the time counseling the patient as patient could only tolerate a brief interaction before becoming upset and beginning to converse loudly with internal voices. She is associating me as being the reason for her snf. She is unable to understand why she cannot be discharged today. Breanna reports a complete resolution of symptoms with normal thought organization and mood stability. She is demanding discharge today. She repeats the same demand and lawsuit threats daily. Staff reports that she continues to be agitated and difficult to console. It is very difficult to console her but after several nights of improved sleep she has been more easy to redirect. She slept 5 hours and this appears to be related to the decrease in Namenda and antidepressant. She denies medication side effects and remains adamantly opposed to any type of change in medications. She does have a medication second opinion override by Dr. Garcia on 06/11/2016. Patient was able to identify her medications and what they were used to treat. Mental Status Exam Appearance: Unkept Attitude: Guarded Behavior: Distractible Affect: Restricted Mood: Irritable, Anxious Thought Process/Associations: Tangential, Circumstantial Speech Production: Abundant Speech Rate: Pressured Speech Articulation: Normal Thought Content: Somatic preoccupation, Suspicious, Perseveration Danger to Self/Suicidal Ideati: None Danger to Others: None Delusions: Paranoid (Endorses) Hallucinations: Auditory (Hallucinatory conversations with others.), Visual ( Denies) Consciousness: Alert Orientation: Person, Place, Situation (aware of hospitalization but not MRO and not discharging) Memory: Short Term Memory (Impaired) Estimate Intellectual Function: Average Basis for IQ estimate: Awareness current events, Word use/vocabulary, Educational history, Employment history Attention/Concentration & Cogn: Impaired Insight: Limited Judgement: Limited Mental Health Plan The patient is a 71-year-old female who developed altered mental status for several days prior to admission. She remains in an acute manic state with significant disorganization of thought , poor judgment, poor insight and poor impulse control. She had significant memory impairment prior to admission and this is exacerbated by her current manic condition suggesting a potential progressing neurocognitive disorder. Breanna remains in a manic stage of bipolar mood disorder. When she was here recently she was in a depressed state for over 6 weeks. I believe she needs time on the current medications and the structure of our unit to reestablish emotional stability and reality based thinking. She is highly sensitive to medications and it has been difficult to adjust medications to [facility] because she tends to get toxic and have significant side effects. As a result we are having to go very slowly with both medications. We were trying to stabilize her with a combination of low-dose lithium Klonopin Seroquel Abilify and Namenda. We will continue to attempt to engage Breanna in a therapeutic alliance as well as encourage taking her medications as prescribed. She finally is appearing to make gradual and steady improvement over the past 48 hours. I believe this is due to finally been able to sleep. Over the past 72 hours her sleep is improved. I believe this is secondary to discontinuing Namenda and Lexapro. [place] AXIS I: 1. Bipolar disorder, current episode, mixed with psychotic features. 2. Major neurocognitive disorder, unspecified, likely vascular type. AXIS II: Deferred. AXIS III: Urinary tract infection resolved. See past medical history. AXIS IV: Moderate. AXIS V: Global Assessment of Functioning 30. Treatments Patient is being provided with a high degree of safety through the structure and active adult engagement. We will focus on developing improved coping skills and identifying stressors that may have led to current episode. We will attempt to: Integrate into therapeutic groups, milieu and individual therapy. Maintain in a closely monitored and structured unit Provide low-stimulation environment Obtain collateral data to assist in treatment planning Assess degree of lability of affect and impulse control Complete safety plan Decrease frequency of relapse and need for re-hospitalization Establish a consistent sleep pattern Medication effective in stabilization of mood and/or thought process Tolerates medication without side effects Patient will be on the following psychiatric medications: lithium carbonate to 150mg daily and 300mg at bedtime (Beatriz brand). Clonazepam to 0.5mg twice daily Quetiapine to 25 mg twice daily and 150mg nightly with 25 mg bid prn. Depakote 2-250mg tablets at bedtime. Address patient's legal status Patient is on a 90 day involuntary treatment hold. Disposition: [facility] Gunner Palacios MD Jun 21, 2016 13:38
[2016-06-21] MEDS: Divalproex (QD) 250 mg ER24 Tablet PO SCH (20:54)
[2016-06-22] MEDS: hydrOXYzine Pamoate 25 mg Capsule PO PRN ×2 (02:00→12:58)
[2016-06-22] MEDS: Mineral Oil-Petr Hydrophillic 50 Gm Ointment TOPICAL SCH ×3 (08:30→20:42)
[2016-06-22 09:00] VITALS: BP 140/82; PULSE 82; RESP 17
[2016-06-22] MEDS: Divalproex (QD) 250 mg ER24 Tablet PO SCH (20:18)
--- NOTE | 2016-06-23 01:09 | PCM.PNPSY ---
Subjective Date of Service June 22, 2016 Subjective The patient reported that "the marines are waiting to take me home." She also reported that her son is going to [place] today so she has to be released. Patient reports that her leg swelling is better and her foot redness and swelling is also improved. 1+ pitting edema is noted on left castro and minimal on left foot. Patient reports itching at night is keeping her up. Reports relief with hydroxyzine. No other side effect c/o. Sleep: none "because it was a scary night" Appetite: "okay Suicidal and homicidal ideation: denies Auditory hallucinations: last this am Visual hallucinations: denies Other Psychotic Symptoms: paranoid delusions Anxiety/Depression: "best I've been all season" Current Medications Current Medications Hydroxyzine Pamoate 50 mg HS PO Last administered on 06/22/16t 20:12; Admin Dose 50 MG; Start 06/22/16 at 21:00 Mental Status Exam Appearance: Unkept Attitude: Guarded Behavior: Overtly anxious, Distractible Affect: Restricted Mood: Irritable, Anxious Thought Process/Associations: Tangential, Circumstantial Speech Production: Abundant (but less than last wee) Speech Rate: Pressured (but less than last week) Speech Articulation: Normal Thought Content: Somatic preoccupation, Suspicious, Perseveration Danger to Self/Suicidal Ideati: None Danger to Others: None Delusions: Paranoid (Endorses) Hallucinations: Auditory (Hallucinatory conversations with others.), Visual ( Denies) Consciousness: Alert Orientation: Person, Place, Situation (aware of hospitalization but not MRO and not discharging) Memory: Short Term Memory (Impaired) Estimate Intellectual Function: Average Basis for IQ estimate: Awareness current events, Word use/vocabulary, Educational history, Employment history Attention/Concentration & Cogn: Impaired Insight: Limited Judgement: Limited Mental Health Plan The patient is a 71-year-old female who had been medication adherent, but had developed altered mental status over the last few days prior to admission. The urinalysis was significant for urinary tract infection which could have explained the patient's abnormal mental status, but subsequent urinalysis indicated the infection had been treated yet the patient remained psychotic. The patient also could have a progressing neurocognitive disorder worsening her psychiatric symptoms. Given the patient's family history of a half-sister with Alzheimer's disease. Her lithium level was 0.7 on 04/29/2016 as well as the subsequent follow-up lithium level, so it would be unusual for her to be lithium toxic. The patient appeared to have worsening symptoms with increase of quetiapine and so was switched to lurasidone. The patient was also quite tremulous and so lithium was decreased to 300 mg at bedtime. The patient stopped taking lurasidone after 05/21, but up to that point had been taking quetiapine 200mg nightly which was subsequently reduced to 25mg. Given the amount of time elapsed, the patient was placed on 100mg quetiapine rather than 150mg dose prior to admission. Follow-up lithium level 0.3. As psychosis is a relatively new symptom for this patient, MRI Brain was ordered and indicated: "No intracranial bleeds or mass effects. There is cerebral volume loss for age. There are periventricular and deep white matter chronic small vessel ischemic changes. Brainstem appears normal. Diffusion-weighted images show no acute ischemic insults. No chronic ischemic insults. Normal intravascular flow voids are present." According to [facility], there is no ADR or allergy regarding lithium, but she has received Beatriz and [employer] brand lithium in the past. Discussed starting Namenda 5 mg and the patient and patient's were both agreeable. The patient received a 90 day more restrictive order and will likely be transferred to [facility]. The patient appears to have had worsening of symptoms with increasing the dose of quetiapine. Reducing the dose of quetiapine does not have appeared to improved her symptoms. The patient is unwilling to take aripiprazole and refused after taking 2 doses. The patient developed tardive dyskinesia on olanzapine, delirium with risperidone, and has been very sensitive to medication side effects/changes. Patient did take ziprasidone briefly without clear side effects. The patient had previously been treated with Depakote and as she is "not taking anything new " she was agreeable to Depakote and has been intermittently adherent but has been refusing since 06/20/16. Namenda was discontinued due to lack of any apparent improvement and possibility of increasing agitation. Will need lithium level reassessed and if in therapeutic range will again try increasing quetiapine, if not, will increase lithium. [place] AXIS I: 1. Bipolar disorder, current episode, mixed with psychotic features. 2. Major neurocognitive disorder, unspecified, likely vascular type. AXIS II: Deferred. AXIS III: Urinary tract infection resolved. See past medical history. AXIS IV: Moderate. AXIS V: Global Assessment of Functioning 30. Treatments 1. The patient is admitted to the inpatient unit and will be provided a safe and secure environment. 2. The patient is denying current active suicidality and is not in need of a one-to-one at this time. 3. The patient is encouraged to participate with group and milieu activities. 4. The patient will be seen by the treatment team on a daily basis to assess symptoms, side effects and response to treatment. 5. Continue current medications. 6. Check lithium level, CBC, CMP in am 7. Continue to encourage patient to take Depakote 8. Patient is currently on any 90 day more restrictive order and has been placed on [facility] list. Lester Cruz MD June 22, 2016 23:22
[2016-06-23] MEDS: diphenhydrAMINE 25 mg Capsule PO PRN ×2 (04:15→23:13)
[2016-06-23 08:14] LABS: BASOPHILS % (AUTO) 0.3 % (0-3); EOSINOPHILS % (AUTO) 4.2 % (0-5); Mean Corpuscular Hemoglobin 29.7 pg (27.0-35.0); Mean Corpuscular Volume 96.9 fL (81-100); NEUTROPHILS % (AUTO) 67.5 % (40-74); Platelet Count 243 bil/L (150-400)
[2016-06-23] MEDS: Mineral Oil-Petr Hydrophillic 50 Gm Ointment TOPICAL SCH ×3 (08:30→20:30)
[2016-06-23 10:00] VITALS: BP 142/69; PULSE 91; RESP 17
[2016-06-23] MEDS: hydrOXYzine Pamoate 25 mg Capsule PO PRN ×2 (10:53→23:13)
[2016-06-23] MEDS: Divalproex (QD) 250 mg ER24 Tablet PO SCH (20:13)
--- NOTE | 2016-06-23 23:04 | PCM.PNPSY ---
Subjective Date of Service June 23, 2016 Subjective The patient reports that she is being released this evening. Patient reports that her leg swelling is better and her foot redness and swelling are also improved. Patient still reporting hearing others talk to her without using normal communications. No side effect c/o. Family meeting with to discuss current progress and limitations of medications. Discussed potentially pursuing director long term care to assist in treatment given patient refusal of medications. Sleep: 5+ hours; "6 hours straight" Appetite: "fine" Suicidal and homicidal ideation: denies Auditory hallucinations: last this am Visual hallucinations: denies Other Psychotic Symptoms: paranoid/grandiose delusions Anxiety/Depression: denies Current Medications Current Medications Hydroxyzine Pamoate 50 mg HS PO Last administered on 06/23/16t 20:07; Admin Dose 50 MG; Start 06/22/16 at 21:00 Mental Status Exam Appearance: Unkept Attitude: Guarded Behavior: Overtly anxious, Distractible Affect: Restricted Mood: Irritable, Anxious Thought Process/Associations: Tangential, Circumstantial Speech Production: Abundant (but less than last week) Speech Rate: Pressured (but less than last week) Speech Articulation: Normal Thought Content: Somatic preoccupation, Suspicious, Perseveration Danger to Self/Suicidal Ideati: None Danger to Others: None Delusions: Paranoid (Endorses) Hallucinations: Auditory (Hallucinatory conversations with others.), Visual ( Denies) Consciousness: Alert Orientation: Person, Place, Situation (aware of hospitalization but not MRO and not discharging) Memory: Short Term Memory (Impaired) Estimate Intellectual Function: Average Basis for IQ estimate: Awareness current events, Word use/vocabulary, Educational history, Employment history Attention/Concentration & Cogn: Impaired Insight: Limited Judgement: Limited Result Diagram: 06/23/16 0755 06/23/16 0755 Mental Health Plan The patient is a 71-year-old female who had been medication adherent, but had developed altered mental status over the last few days prior to admission. The urinalysis was significant for urinary tract infection which could have explained the patient's abnormal mental status, but subsequent urinalysis indicated the infection had been treated yet the patient remained psychotic. The patient also could have a progressing neurocognitive disorder worsening her psychiatric symptoms. Given the patient's family history of a half-sister with Alzheimer's disease. Her lithium level was 0.7 on 04/29/2016 as well as the subsequent follow-up lithium level, so it would be unusual for her to be lithium toxic. The patient appeared to have worsening symptoms with increase of quetiapine and so was switched to lurasidone. The patient was also quite tremulous and so lithium was decreased to 300 mg at bedtime. The patient stopped taking lurasidone after 05/21, but up to that point had been taking quetiapine 200mg nightly which was subsequently reduced to 25mg. Given the amount of time elapsed, the patient was placed on 100mg quetiapine rather than 150mg dose prior to admission. Follow-up lithium level 0.3. As psychosis is a relatively new symptom for this patient, MRI Brain was ordered and indicated: "No intracranial bleeds or mass effects. There is cerebral volume loss for age. There are periventricular and deep white matter chronic small vessel ischemic changes. Brainstem appears normal. Diffusion-weighted images show no acute ischemic insults. No chronic ischemic insults. Normal intravascular flow voids are present." According to [facility], there is no ADR or allergy regarding lithium, but she has received Beatriz and [employer] brand lithium in the past. Discussed starting Namenda 5 mg and the patient and patient's were both agreeable. The patient received a 90 day more restrictive order and will likely be transferred to [facility]. The patient appears to have had worsening of symptoms with increasing the dose of quetiapine. Reducing the dose of quetiapine does not have appeared to improved her symptoms. The patient is unwilling to take aripiprazole and refused after taking 2 doses. The patient developed tardive dyskinesia on olanzapine, delirium with risperidone, and has been very sensitive to medication side effects/changes. Patient did take ziprasidone briefly without clear side effects. The patient had previously been treated with Depakote and as she is "not taking anything new " she was agreeable to Depakote and has been intermittently adherent but has been refusing since 06/20/16. Namenda was discontinued due to lack of any apparent improvement and possibility of increasing agitation. [place] level 0.6 with no acute side effects, patient agreeable to increasing dose. [place] AXIS I: 1. Bipolar disorder, current episode, mixed with psychotic features. 2. Major neurocognitive disorder, unspecified, likely vascular type. AXIS II: Deferred. AXIS III: Urinary tract infection resolved. See past medical history. AXIS IV: Moderate. AXIS V: Global Assessment of Functioning 30. Treatments 1. The patient is admitted to the inpatient unit and will be provided a safe and secure environment. 2. The patient is denying current active suicidality and is not in need of a one-to-one at this time. 3. The patient is encouraged to participate with group and milieu activities. 4. The patient will be seen by the treatment team on a daily basis to assess symptoms, side effects and response to treatment. 5. Increase lithium to 300mg o bid. 6. Check lithium level, CBC, CMP in 6 days. 7. Continue to encourage patient to take Depakote 8. Patient is currently on any 90 day more restrictive order and has been placed on [facility] list. Lester Cruz MD June 23, 2016 23:04
[2016-06-24] MEDS: Mineral Oil-Petr Hydrophillic 50 Gm Ointment TOPICAL SCH ×3 (08:30→21:10)
[2016-06-24] MEDS: hydrOXYzine Pamoate 25 mg Capsule PO PRN (11:48)
[2016-06-24 12:28] VITALS: BP 132/71; PULSE 69
[2016-06-24] MEDS: Benzocaine-Menthol Lozenge 2/Pkg PO PRN (14:05)
[2016-06-24] MEDS: diphenhydrAMINE 25 mg Capsule PO PRN (16:17)
[2016-06-24] MEDS: Divalproex (QD) 250 mg ER24 Tablet PO SCH (21:00)
--- NOTE | 2016-06-24 22:56 | PCM.PNPSY ---
Subjective Date of Service June 24, 2016 Subjective The patient reports that she is being released today for her hair appointment. The patient fell last night but had no major sequelae. Patient denies speaking on the God/Lord's line to any family members today. Patient distracted appearing, but calmer and less irritable. Sleep: 5.5+ hours Appetite: "good" Suicidal and homicidal ideation: denies Auditory hallucinations: last yesterday Visual hallucinations: denies Other Psychotic Symptoms: paranoid/grandiose delusions Current Medications Current Medications [place] Carbonate 300 mg DAILY PO Last administered on 06/24/16t 08:31; Admin Dose 300 MG; Start 06/24/16 at 08:30; Stop 06/24/16 at 09:37; Status DC Mental Status Exam Appearance: Neat/well groomed Attitude: Guarded Behavior: Overtly anxious, Distractible Affect: Restricted Mood: Dysthymic, Anxious Thought Process/Associations: Tangential, Circumstantial Speech Production: Abundant (but less than last week) Speech Rate: Pressured (but less than last week) Speech Articulation: Normal Thought Content: Somatic preoccupation, Suspicious, Perseveration Danger to Self/Suicidal Ideati: None Danger to Others: None Delusions: Paranoid (Endorses) Hallucinations: Auditory (Reports last was yesterday.), Visual (Denies) Consciousness: Alert Orientation: Person, Place, Situation (aware of hospitalization but not MRO and not discharging) Memory: Short Term Memory (Impaired) Estimate Intellectual Function: Average Basis for IQ estimate: Awareness current events, Word use/vocabulary, Educational history, Employment history Attention/Concentration & Cogn: Impaired Insight: Limited Judgement: Limited Result Diagram: 06/23/16 0755 06/23/16 0755 Mental Health Plan The patient is a 71-year-old female who had been medication adherent, but had developed altered mental status over the last few days prior to admission. The urinalysis was significant for urinary tract infection which could have explained the patient's abnormal mental status, but subsequent urinalysis indicated the infection had been treated yet the patient remained psychotic. The patient also could have a progressing neurocognitive disorder worsening her psychiatric symptoms. Given the patient's family history of a half-sister with Alzheimer's disease. Her lithium level was 0.7 on 04/29/2016 as well as the subsequent follow-up lithium level, so it would be unusual for her to be lithium toxic. The patient appeared to have worsening symptoms with increase of quetiapine and so was switched to lurasidone. The patient was also quite tremulous and so lithium was decreased to 300 mg at bedtime. The patient stopped taking lurasidone after 05/21, but up to that point had been taking quetiapine 200mg nightly which was subsequently reduced to 25mg. Given the amount of time elapsed, the patient was placed on 100mg quetiapine rather than 150mg dose prior to admission. Follow-up lithium level 0.3. As psychosis is a relatively new symptom for this patient, MRI Brain was ordered and indicated: "No intracranial bleeds or mass effects. There is cerebral volume loss for age. There are periventricular and deep white matter chronic small vessel ischemic changes. Brainstem appears normal. Diffusion-weighted images show no acute ischemic insults. No chronic ischemic insults. Normal intravascular flow voids are present." According to [facility], there is no ADR or allergy regarding lithium, but she has received Beatriz and [employer] brand lithium in the past. Discussed starting Namenda 5 mg and the patient and patient's were both agreeable. The patient received a 90 day more restrictive order and will likely be transferred to [facility]. The patient appears to have had worsening of symptoms with increasing the dose of quetiapine. Reducing the dose of quetiapine does not have appeared to improved her symptoms. The patient is unwilling to take aripiprazole and refused after taking 2 doses. The patient developed tardive dyskinesia on olanzapine, delirium with risperidone, and has been very sensitive to medication side effects/changes. Patient did take ziprasidone briefly without clear side effects. The patient had previously been treated with Depakote and as she is "not taking anything new " she was agreeable to Depakote and has been intermittently adherent but has been refusing since 06/20/16. Namenda was discontinued due to lack of any apparent improvement and possibility of increasing agitation. [place] level 0.6 with no acute side effects, patient agreeable to increasing dose. [place] AXIS I: 1. Bipolar disorder, current episode, mixed with psychotic features. 2. Major neurocognitive disorder, unspecified, likely vascular type. AXIS II: Deferred. AXIS III: Urinary tract infection resolved. See past medical history. AXIS IV: Moderate. AXIS V: Global Assessment of Functioning 30. Treatments 1. The patient is admitted to the inpatient unit and will be provided a safe and secure environment. 2. The patient is denying current active suicidality and is not in need of a one-to-one at this time. 3. The patient is encouraged to participate with group and milieu activities. 4. The patient will be seen by the treatment team on a daily basis to assess symptoms, side effects and response to treatment. 5. Increase lithium to 300mg o bid. 6. Check lithium level, CBC, CMP in 6 days. 7. Continue to encourage patient to take Depakote 8. Patient is currently on any 90 day more restrictive order and has been placed on [facility] list. Lester Cruz MD June 24, 2016 22:56
[2016-06-25] MEDS: diphenhydrAMINE 25 mg Capsule PO PRN ×2 (01:33→11:52)
[2016-06-25] MEDS: Alum-Mag Hydrox-Simeth 30 mL Suspension PO PRN (02:14)
[2016-06-25 08:25] VITALS: BP 104/61; PULSE 70; RESP 18
[2016-06-25] MEDS: Benzocaine-Menthol Lozenge 2/Pkg PO PRN (09:50)
[2016-06-25] MEDS: Mineral Oil-Petr Hydrophillic 50 Gm Ointment TOPICAL SCH ×3 (11:04→20:33)
--- NOTE | 2016-06-25 21:21 | PCM.PNPSY ---
Subjective Date of Service June 25, 2016 Subjective The patient reports that she is "feeling bored" at the hospital and needs to get home as they are having barbecue. She stated that she has only heard [place] and [place] on the "[facility]" briefly yesterday, and reports none so far today. The patient's toe ulcer is healing and the redness and swelling are significantly reduced. She continues to believe that she is leaving today. Sleep: 2.5 hours Appetite: "good" Suicidal and homicidal ideation: denies Auditory hallucinations: last yesterday Visual hallucinations: denies Other Psychotic Symptoms: as above Anxiety: denies Depression: denies Current Medications Current Medications Ciprofloxacin 125 mg DAILY PO Last administered on 06/25/16 07:58; Admin Dose 125 MG; Start 06/25/16 at 08:30 [place] Carbonate 300 mg DAILY PO Last administered on 06/24/16 08:31; Admin Dose 300 MG; Start 06/24/16 at 08:30; Stop 06/24/16 at 09:37; Status DC [place] Carbonate 300 mg DAILY PO Last administered on 06/25/16 07:52; Admin Dose 300 MG; Start 06/25/16 at 08:30 Mental Status Exam Appearance: Neat/well groomed Attitude: Cooperative, Guarded Behavior: Overtly anxious, Distractible Affect: Restricted Mood: Dysthymic, Anxious Thought Process/Associations: Goal Directed, Circumstantial Speech Production: Normal Speech Rate: Normal Speech Articulation: Normal Thought Content: Somatic preoccupation, Perseveration Danger to Self/Suicidal Ideati: None Danger to Others: None Delusions: Paranoid (Endorses) Hallucinations: Auditory (Reports last was yesterday.), Visual (Denies) Consciousness: Alert Orientation: Person, Place, Situation (aware of hospitalization but not MRO and not discharging) Memory: Short Term Memory (Impaired) Estimate Intellectual Function: Average Basis for IQ estimate: Awareness current events, Word use/vocabulary, Educational history, Employment history Attention/Concentration & Cogn: Impaired Insight: Limited Judgement: Limited Result Diagram: 06/23/16 0755 06/23/16 0755 Mental Health Plan The patient is a 71-year-old female who had been medication adherent, but had developed altered mental status over the last few days prior to admission. The urinalysis was significant for urinary tract infection which could have explained the patient's abnormal mental status, but subsequent urinalysis indicated the infection had been treated yet the patient remained psychotic. The patient also could have a progressing neurocognitive disorder worsening her psychiatric symptoms. Given the patient's family history of a half-sister with Alzheimer's disease. Her lithium level was 0.7 on 04/29/2016 as well as the subsequent follow-up lithium level, so it would be unusual for her to be lithium toxic. The patient appeared to have worsening symptoms with increase of quetiapine and so was switched to lurasidone. The patient was also quite tremulous and so lithium was decreased to 300 mg at bedtime. The patient stopped taking lurasidone after 05/21, but up to that point had been taking quetiapine 200mg nightly which was subsequently reduced to 25mg. Given the amount of time elapsed, the patient was placed on 100mg quetiapine rather than 150mg dose prior to admission. Follow-up lithium level 0.3. As psychosis is a relatively new symptom for this patient, MRI Brain was ordered and indicated: "No intracranial bleeds or mass effects. There is cerebral volume loss for age. There are periventricular and deep white matter chronic small vessel ischemic changes. Brainstem appears normal. Diffusion-weighted images show no acute ischemic insults. No chronic ischemic insults. Normal intravascular flow voids are present." According to [facility], there is no ADR or allergy regarding lithium, but she has received Beatriz and [employer] brand lithium in the past. Discussed starting Namenda 5 mg and the patient and patient's were both agreeable. The patient received a 90 day more restrictive order and will likely be transferred to [facility]. Namenda was discontinued due to lack of any apparent improvement and possibility of increasing agitation. The patient is unwilling to take aripiprazole and refused after taking 2 doses. The patient developed tardive dyskinesia on olanzapine, delirium with risperidone, and has been very sensitive to medication side effects/changes. Patient did take ziprasidone briefly without clear side effects. The patient had previously been treated with Depakote and as she is "not taking anything new " she was agreeable to Depakote and has been intermittently adherent but has been refusing since 06/20/16. [place] level 0.6 with no acute side effects, patient agreeable to increasing dose. The patient appears calmer over the last few days and less confused though did not sleep last night. [place] AXIS I: 1. Bipolar disorder, current episode, mixed with psychotic features. 2. Major neurocognitive disorder, unspecified, likely vascular type. AXIS II: Deferred. AXIS III: Urinary tract infection resolved. See past medical history. AXIS IV: Moderate. AXIS V: Global Assessment of Functioning 30. Treatments 1. The patient is admitted to the inpatient unit and will be provided a safe and secure environment. 2. The patient is denying current active suicidality and is not in need of a one-to-one at this time. 3. The patient is encouraged to participate with group and milieu activities. 4. The patient will be seen by the treatment team on a daily basis to assess symptoms, side effects and response to treatment. 5. Continue lithium 300mg bid. 6. Check lithium level on 06/29/16. 7. Patient has consistently refused Depakote and now states will not take due to prior diarrhea, will discontinue. 8. Patient is currently on any 90 day more restrictive order and has been placed on [facility] list. Lester Cruz MD June 25, 2016 21:21
[2016-06-26] MEDS: diphenhydrAMINE 25 mg Capsule PO PRN (00:54)
[2016-06-26] MEDS: Mineral Oil-Petr Hydrophillic 50 Gm Ointment TOPICAL SCH ×3 (08:07→21:06)
[2016-06-26 09:45] VITALS: BP 103/59; PULSE 65; RESP 16
[2016-06-26] MEDS: hydrOXYzine Pamoate 25 mg Capsule PO PRN (12:57)
--- NOTE | 2016-06-26 15:01 | DRSVH ---
PROCEDURE: X-RAY PELVIS W/LAT HIP (LT) ([id number]) INDICATIONS: GROUND LEVEL FALL TECHNIQUE: AP pelvis with lateral view(s) of the left hip(s). COMPARISON: None. FINDINGS: Bones: No fractures or dislocations. Pelvic ring appears intact. No suspicious bony lesions. Mild joint narrowing with periarticular osteophyte formation of the left and right hip joint. Mild dextr oscoliosis of the lower lumbar spine and degenerative changes noted. Soft tissues: The visualized bowel gas pattern is normal. No suspicious soft tissue calcifications. Pelvic pessary noted. IMPRESSION: No displaced fracture seen. If there is continued pain, followup exam or additional imaging such as MRI or CT could be performed for further assessment. Mild symmetric hip joint degeneration and degenerative change within the lower lumbar spine. Dictated by: Jimmy Porras [facility] Interpreted: Javid Sears MD on 06/26/2016 at 15:00 Transcribed by: WALI on 06/26/2016 at 15:01 Approved by: Latrell Sears M.D. on 06/26/2016 at 16:18
--- NOTE | 2016-06-26 22:49 | PCM.PNPSY ---
Subjective Date of Service June 26, 2016 Subjective The patient reports that she is still "bored" at the hospital and needs to get home as she needs to help her . She stated that she has only heard [place] and [place] on the "[facility]" briefly yesterday, and reports none yesterday, or so far today. The patient's toe ulcer is healing and the redness and swelling are significantly reduced. The patient appears calmer today, but still perseverating on not having her hair done. Denies side effects. Sleep: 2.5 hours Appetite: "good" Suicidal and homicidal ideation: denies Auditory hallucinations: last 2 days ago Visual hallucinations: denies Other Psychotic Symptoms: as above Anxiety: "low" Depression: denies Current Medications Current Medications Ciprofloxacin 125 mg DAILY PO Last administered on 06/26/16 08:04; Admin Dose 125 MG; Start 06/25/16 at 08:30 Hydrochlorothiazide 12.5 mg DAILY PO Last administered on 06/26/16 15:20; Admin Dose 12.5 MG; Start 06/26/16 at 13:45 [place] Carbonate 300 mg DAILY PO Last administered on 06/26/16 08:07; Admin Dose 300 MG; Start 06/25/16 at 08:30 Mental Status Exam Appearance: Neat/well groomed Attitude: Cooperative, Guarded Behavior: Overtly anxious, Distractible Affect: Restricted Mood: Dysthymic, Anxious Thought Process/Associations: Goal Directed, Circumstantial Speech Production: Normal Speech Rate: Normal Speech Articulation: Normal Thought Content: Somatic preoccupation, Perseveration Danger to Self/Suicidal Ideati: None Danger to Others: None Delusions: Paranoid (Endorses) Hallucinations: Auditory (Reports last was two days ago.), Visual (Denies) Consciousness: Alert Orientation: Person, Place, Situation (aware of hospitalization but not MRO and not discharging) Memory: Short Term Memory (Impaired) Estimate Intellectual Function: Average Basis for IQ estimate: Awareness current events, Word use/vocabulary, Educational history, Employment history Attention/Concentration & Cogn: Impaired Insight: Limited Judgement: Limited Result Diagram: 06/23/16 0755 06/23/16 4058 Mental Health Plan The patient is a 71-year-old female who had been medication adherent, but had developed altered mental status over the last few days prior to admission. The urinalysis was significant for urinary tract infection which could have explained the patient's abnormal mental status, but subsequent urinalysis indicated the infection had been treated yet the patient remained psychotic. The patient also could have a progressing neurocognitive disorder worsening her psychiatric symptoms. Given the patient's family history of a half-sister with Alzheimer's disease. Her lithium level was 0.7 on 04/29/2016 as well as the subsequent follow-up lithium level, so it would be unusual for her to be lithium toxic. The patient appeared to have worsening symptoms with increase of quetiapine and so was switched to lurasidone. The patient was also quite tremulous and so lithium was decreased to 300 mg at bedtime. The patient stopped taking lurasidone after 05/21, but up to that point had been taking quetiapine 200mg nightly which was subsequently reduced to 25mg. Given the amount of time elapsed, the patient was placed on 100mg quetiapine rather than 150mg dose prior to admission. Follow-up lithium level 0.3. As psychosis is a relatively new symptom for this patient, MRI Brain was ordered and indicated: "No intracranial bleeds or mass effects. There is cerebral volume loss for age. There are periventricular and deep white matter chronic small vessel ischemic changes. Brainstem appears normal. Diffusion-weighted images show no acute ischemic insults. No chronic ischemic insults. Normal intravascular flow voids are present." According to [facility], there is no ADR or allergy regarding lithium, but she has received Beatriz and [employer] brand lithium in the past. Discussed starting Namenda 5 mg and the patient and patient's were both agreeable. The patient received a 90 day more restrictive order and will likely be transferred to [facility]. Namenda was discontinued due to lack of any apparent improvement and possibility of increasing agitation. The patient is unwilling to take aripiprazole and refused after taking 2 doses. The patient developed tardive dyskinesia on olanzapine, delirium with risperidone, and has been very sensitive to medication side effects/changes. Patient did take ziprasidone briefly without clear side effects. The patient had previously been treated with Depakote and as she is "not taking anything new " she was agreeable to Depakote and has been intermittently adherent but has been refusing since 06/20/16. [place] level 0.6 with no acute side effects, patient agreeable to increasing dose. The patient appears calmer and is not reporting hallucinations over the last few days and less confused though still did not sleep well last night. [place] AXIS I: 1. Bipolar disorder, current episode, mixed with psychotic features. 2. Major neurocognitive disorder, unspecified, likely vascular type. AXIS II: Deferred. AXIS III: Urinary tract infection resolved. See past medical history. AXIS IV: Moderate. AXIS V: Global Assessment of Functioning 30. Treatments 1. The patient is admitted to the inpatient unit and will be provided a safe and secure environment. 2. The patient is denying current active suicidality and is not in need of a one-to-one at this time. 3. The patient is encouraged to participate with group and milieu activities. 4. The patient will be seen by the treatment team on a daily basis to assess symptoms, side effects and response to treatment. 5. Continue lithium 300mg bid. 6. Check lithium level on 06/29/16. 7. Patient has consistently refused Depakote and now states will not take due to prior diarrhea, will discontinue. 8. Patient is currently on any 90 day more restrictive order and has been placed on [facility] list. Lester Cruz MD June 26, 2016 22:49
[2016-06-27] MEDS: hydrOXYzine Pamoate 25 mg Capsule PO PRN ×2 (01:26→11:31)
[2016-06-27] MEDS: diphenhydrAMINE 25 mg Capsule PO PRN (06:55)
[2016-06-27] MEDS: Mineral Oil-Petr Hydrophillic 50 Gm Ointment TOPICAL SCH ×3 (08:30→21:14)
[2016-06-27 08:42] VITALS: BP 126/60; PULSE 59; RESP 16
--- NOTE | 2016-06-27 17:11 | PCM.PNPSY ---
Subjective Date of Service June 27, 2016 Subjective The patient is still perseverating on not having Beatriz lithium at some point in her stay. After her request for discharge today is denied she indicates there will be lawsuits over Beatriz lithium. When informed that her outpatient pharmacy had no ADR regarding Beatriz lithium she again reported that she did not want to have to [place] but that her hospital stay was too long. The patient denied auditory hallucinations/telepathic communication with others with the last being 3 days ago. The patient reports that hydroxyzine was effective for decreasing her itching and improving sleep overnight. Overall, the patient appears calmer, but still perseverating on issues with lithium and on not having her hair done. Denies side effects. Sleep: 8+ hours Appetite: "good" Suicidal and homicidal ideation: denies Auditory hallucinations: last 3 days ago Visual hallucinations: denies Other Psychotic Symptoms: as above Current Medications Current Medications Hydrochlorothiazide 12.5 mg DAILY PO Last administered on 06/27/16t 09:36; Admin Dose 12.5 MG; Start 06/26/16 at 13:45 Mental Status Exam Appearance: Neat/well groomed Attitude: Cooperative, Guarded Behavior: Overtly anxious, Distractible Affect: Restricted Mood: Dysthymic, Anxious Thought Process/Associations: Goal Directed, Circumstantial Speech Production: Normal Speech Rate: Normal Speech Articulation: Normal Thought Content: Somatic preoccupation, Perseveration Danger to Self/Suicidal Ideati: None Danger to Others: None Delusions: Paranoid (Endorses) Hallucinations: Auditory (Reports last was 3 days ago.), Visual (Denies) Consciousness: Alert Orientation: Person, Place, Situation (aware of hospitalization and now states she does not need MRO and should be discharged as others are sicker than she) Memory: Short Term Memory (Impaired) Estimate Intellectual Function: Average Basis for IQ estimate: Awareness current events, Word use/vocabulary, Educational history, Employment history Attention/Concentration & Cogn: Impaired Insight: Limited Judgement: Limited Result Diagram: 06/23/16 0755 06/23/16 0755 Mental Health Plan The patient is a 71-year-old female who had been medication adherent, but had developed altered mental status over the last few days prior to admission. The urinalysis was significant for urinary tract infection which could have explained the patient's abnormal mental status, but subsequent urinalysis indicated the infection had been treated yet the patient remained psychotic. The patient also could have a progressing neurocognitive disorder worsening her psychiatric symptoms. Given the patient's family history of a half-sister with Alzheimer's disease. Her lithium level was 0.7 on 04/29/2016 as well as the subsequent follow-up lithium level, so it would be unusual for her to be lithium toxic. The patient appeared to have worsening symptoms with increase of quetiapine and so was switched to lurasidone. The patient was also quite tremulous and so lithium was decreased to 300 mg at bedtime. The patient stopped taking lurasidone after 05/21, but up to that point had been taking quetiapine 200mg nightly which was subsequently reduced to 25mg. Given the amount of time elapsed, the patient was placed on 100mg quetiapine rather than 150mg dose prior to admission. Follow-up lithium level 0.3. As psychosis is a relatively new symptom for this patient, MRI Brain was ordered and indicated: "No intracranial bleeds or mass effects. There is cerebral volume loss for age. There are periventricular and deep white matter chronic small vessel ischemic changes. Brainstem appears normal. Diffusion-weighted images show no acute ischemic insults. No chronic ischemic insults. Normal intravascular flow voids are present." According to [facility], there is no ADR or allergy regarding lithium, but she has received Beatriz and [employer] brand lithium in the past. Discussed starting Namenda 5 mg and the patient and patient's were both agreeable. The patient received a 90 day more restrictive order and will likely be transferred to [facility]. Namenda was discontinued due to lack of any apparent improvement and possibility of increasing agitation. The patient is unwilling to take aripiprazole and refused after taking 2 doses. The patient developed tardive dyskinesia on olanzapine, delirium with risperidone, and has been very sensitive to medication side effects/changes. Patient did take ziprasidone briefly without clear side effects. The patient had previously been treated with Depakote and as she is "not taking anything new" she was agreeable to Depakote and has been intermittently adherent but has been refusing since . [place] level 0.6 with no acute side effects, patient agreeable to increasing dose. The patient appears to be responding to the combination of increased lithium and hydroxyzine at bedtime. The patient appears calmer and is not reporting hallucinations over the last few days and less confused though still showing poor insight and perseveration on previously perceived transgressions. [place] AXIS I: 1. Bipolar disorder, current episode, mixed with psychotic features. 2. Major neurocognitive disorder, unspecified, likely vascular type. AXIS II: Deferred. AXIS III: Urinary tract infection resolved. See past medical history. AXIS IV: Moderate. AXIS V: Global Assessment of Functioning 30. Medications Clonazepam 0.5 mg twice daily Diphenhydramine 25 mg by mouth every 6 hours when necessary itching Hydroxyzine 25 mg by mouth every 4 hours when necessary anxiety agitation or itching Hydroxyzine pamoate 50 mg nightly [place] carbonate 300 mg twice daily Quetiapine 25 mg at 8 AM and 1430 Quetiapine 150 mg nightly Quetiapine 25 mg by mouth twice a day when necessary psychosis or severe agitation Ziprasidone 20 mg twice a day IM when necessary for refused quetiapine Ciprofloxacin 125 mg daily Famotidine 20 mg daily Furosemide 10 mg daily Hydrochlorothiazide 12.5 mg daily Hydrocortisone 0.5% cream topical twice a day Triamcinolone topical twice a day Treatments 1. The patient is admitted to the inpatient unit and will be provided a safe and secure environment. 2. The patient is denying current active suicidality and is not in need of a one-to-one at this time. 3. The patient is encouraged to participate with group and milieu activities. 4. The patient will be seen by the treatment team on a daily basis to assess symptoms, side effects and response to treatment. 5. Combine as needed hydroxyzine and diphenhydramine and use hydroxyzine 50 mg every 6 hours as needed for anxiety, agitation, and itching. 6. Check lithium level on 06/29/16. 7. Patient is currently on any 90 day more restrictive order and has been placed on [facility] list. Lester Cruz MD June 27, 2016 17:11 Lester Cruz MD June 27, 2016 17:11
[2016-06-28] MEDS: Mineral Oil-Petr Hydrophillic 50 Gm Ointment TOPICAL SCH ×3 (09:13→21:29)
[2016-06-28 13:05] VITALS: BP 118/68; PULSE 69; RESP 18
--- NOTE | 2016-06-28 14:46 | PCM.PNPSY ---
Subjective Date of Service June 28, 2016 Subjective I spent 30 minutes both reviewing treatment plan with clinical team, interviewing the patient and providing supportive/educational psychotherapy. I spent less than 50% of the time counseling the patient as the patient could only tolerate a brief interaction before becoming irrational, and demanding immediate discharge. This is the same event I have on a daily basis with Breanna. I attempted to review the treatment plan with the patient and discussed options available she was having nothing of it. Breanna reports a resolution of symptoms and that she is ready for discharge immediately. Staff reports that she has been generally confused, but is able to attend to activities of daily living. She slept for 6 hours and although she denies carlton or psychotic symptoms review both staff and I are observing her to be frequently responding to internal stimuli (she calls this the Lord's line), and showing poor impulse control and severe distractibility. She denies medication side effects. Patient was able to identify her medications and what they were used to treat. Current Medications Current Medications Hydroxyzine Pamoate 50 mg Q6 PRN PO Last administered on 06/27/16t 23:43; Admin Dose 50 MG; Start 06/27/16 at 17:15 Mental Status Exam Vital Signs Vital Signs Date Time Temp Pulse Resp B/P Pulse Ox O2 Delivery O2 Flow Rate FiO2 06/28/16 13:05 35.7 69 18 118/68 Appearance: Neat/well groomed Attitude: Cooperative, Guarded Behavior: Overtly anxious, Distractible Affect: Restricted Mood: Dysthymic, Anxious Thought Process/Associations: Goal Directed, Circumstantial Speech Production: Normal Speech Rate: Normal Speech Articulation: Normal Thought Content: Somatic preoccupation, Perseveration Danger to Self/Suicidal Ideati: None Danger to Others: None Delusions: Paranoid (Endorses) Hallucinations: Auditory (Reports last was 3 days ago.), Visual (Denies) Consciousness: Alert Orientation: Person, Place, Situation (aware of hospitalization and now states she does not need MRO and should be discharged as others are sicker than she) Memory: Short Term Memory (Impaired) Estimate Intellectual Function: Average Basis for IQ estimate: Awareness current events, Word use/vocabulary, Educational history, Employment history Attention/Concentration & Cogn: Impaired Insight: Limited Judgement: Limited Result Diagram: 06/23/16 0755 06/23/16 0755 Mental Health Plan The patient is a 71-year-old female who developed altered mental status for several days prior to admission. She remains in an acute manic state with significant disorganization of thought , poor judgment, poor insight and poor impulse control. She had significant memory impairment prior to admission and this is exacerbated by her current manic condition suggesting a potential progressing neurocognitive disorder. Breanna remains in a manic stage of bipolar mood disorder. When she was here recently she was in a depressed state for over 6 weeks. I believe she needs time on the current medications and the structure of our unit to reestablish emotional stability and reality based thinking. She is highly sensitive to medications and it has been difficult to adjust medications to target carlton because she tends to get toxic and have significant side effects. As a result we are having to go very slowly with both medications. We will continue to attempt to engage Breanna in a therapeutic alliance as well as encourage taking her medications as prescribed. She continues to make gradual and steady improvement over the past week. I believe this is due to finally been able to sleep. [place] AXIS I: 1. Bipolar disorder, current episode, mixed with psychotic features. 2. Major neurocognitive disorder, unspecified, likely vascular type. AXIS II: Deferred. AXIS III: Urinary tract infection resolved. See past medical history. AXIS IV: Moderate. AXIS V: Global Assessment of Functioning 30. Medications Clonazepam 0.5 mg twice daily Diphenhydramine 25 mg by mouth every 6 hours when necessary itching Hydroxyzine 25 mg by mouth every 4 hours when necessary anxiety agitation or itching Hydroxyzine pamoate 50 mg nightly [place] carbonate 300 mg twice daily Quetiapine 25 mg at 8 AM and 1430 Quetiapine 150 mg nightly Quetiapine 25 mg by mouth twice a day when necessary psychosis or severe agitation Ziprasidone 20 mg twice a day IM when necessary for refused quetiapine Ciprofloxacin 125 mg daily Famotidine 20 mg daily Furosemide 10 mg daily Hydrochlorothiazide 12.5 mg daily Hydrocortisone 0.5% cream topical twice a day Triamcinolone topical twice a day Treatments 1. The patient is admitted to the inpatient unit and will be provided a safe and secure environment. 2. The patient is denying current active suicidality and is not in need of a one-to-one at this time. 3. The patient is encouraged to participate with group and milieu activities. 4. The patient will be seen by the treatment team on a daily basis to assess symptoms, side effects and response to treatment. 5. Combine as needed hydroxyzine and diphenhydramine and use hydroxyzine 50 mg every 6 hours as needed for anxiety, agitation, and itching. 6. Check lithium level on 06/29/16. 7. Patient is currently on any 90 day more restrictive order and has been placed on [facility] list. Gunner Palacios MD June 28, 2016 14:46
[2016-06-29 08:30] VITALS: BP 129/71; PULSE 69; RESP 20
[2016-06-29] MEDS: Mineral Oil-Petr Hydrophillic 50 Gm Ointment TOPICAL SCH ×3 (08:52→20:30)
--- NOTE | 2016-06-29 15:24 | PCM.PNPSY ---
Subjective Date of Service June 29, 2016 Subjective I spent 30 minutes both reviewing treatment plan with clinical team, interviewing the patient and providing supportive/educational psychotherapy. I spent less than 50% of the time counseling the patient as the patient could only tolerate a brief interaction before becoming irrational, and demanding immediate discharge. This is the same event I have on a daily basis with Breanna. I attempted to review the treatment plan with the patient and discussed options available she was having nothing of it. Breanna reports a resolution of symptoms and that she is ready for discharge immediately. Staff reports that she has been generally confused, but is able to attend to activities of daily living. She slept for 6 hours and although she denies carlton or psychotic symptoms review both staff and I are observing her to be frequently responding to internal stimuli (she calls this the Lord's line), and showing poor impulse control and severe distractibility. She denies medication side effects. Patient was able to identify her medications and what they were used to treat. Current Medications Current Medications Furosemide 10 mg DAILY PO Last administered on 06/29/16 14:13; Admin Dose 10 MG ; Start 06/29/16 at 13:05 Hydroxyzine Pamoate 50 mg Q6 PRN PO Last administered on 06/27/16 23:43; Admin Dose 50 MG; Start 06/27/16 at 17:15 Mental Status Exam Vital Signs Vital Signs Date Time Temp Pulse Resp B/P Pulse Ox O2 Delivery O2 Flow Rate FiO2 06/29/16 08:30 36.7 69 20 129/71 Appearance: Neat/well groomed Attitude: Cooperative, Guarded Behavior: Overtly anxious, Distractible Affect: Restricted Mood: Dysthymic, Anxious Thought Process/Associations: Goal Directed, Circumstantial Speech Production: Normal Speech Rate: Normal Speech Articulation: Normal Thought Content: Somatic preoccupation, Perseveration Danger to Self/Suicidal Ideati: None Danger to Others: None Delusions: Paranoid (Endorses) Hallucinations: Auditory (Reports last was 3 days ago.), Visual (Denies) Consciousness: Alert Orientation: Person, Place, Situation (aware of hospitalization and now states she does not need MRO and should be discharged as others are sicker than she) Memory: Short Term Memory (Impaired) Estimate Intellectual Function: Average Basis for IQ estimate: Awareness current events, Word use/vocabulary, Educational history, Employment history Attention/Concentration & Cogn: Impaired Insight: Limited Judgement: Limited Result Diagram: 06/23/16 0755 06/23/16 0755 Mental Health Plan The patient is a 71-year-old female who developed altered mental status for several days prior to admission. She remains in an acute manic state with significant disorganization of thought , poor judgment, poor insight and poor impulse control. She had significant memory impairment prior to admission and this is exacerbated by her current manic condition suggesting a potential progressing neurocognitive disorder. Breanna remains in a manic stage of bipolar mood disorder. When she was here recently she was in a depressed state for over 6 weeks. I believe she needs time on the current medications and the structure of our unit to reestablish emotional stability and reality based thinking. She is highly sensitive to medications and it has been difficult to adjust medications to target carlton because she tends to get toxic and have significant side effects. As a result we are having to go very slowly with both medications. We will continue to attempt to engage Breanna in a therapeutic alliance as well as encourage taking her medications as prescribed. She continues to make gradual and steady improvement over the past week. I believe this is due to finally been able to sleep. [place] AXIS I: 1. Bipolar disorder, current episode, mixed with psychotic features. 2. Major neurocognitive disorder, unspecified, likely vascular type. AXIS II: Deferred. AXIS III: Urinary tract infection resolved. See past medical history. AXIS IV: Moderate. AXIS V: Global Assessment of Functioning 30. Medications Feels like I should be doing some Clonazepam 0.5 mg twice daily Diphenhydramine 25 mg by mouth every 6 hours when necessary itching Hydroxyzine 25 mg by mouth every 4 hours when necessary anxiety agitation or itching Hydroxyzine pamoate 50 mg nightly [place] carbonate 300 mg twice daily Quetiapine 25 mg at 8 AM and 1430 Quetiapine 150 mg nightly Quetiapine 25 mg by mouth twice a day when necessary psychosis or severe agitation Ziprasidone 20 mg twice a day IM when necessary for refused quetiapine Ciprofloxacin 125 mg daily Famotidine 20 mg daily Furosemide 10 mg daily Hydrochlorothiazide 12.5 mg daily Hydrocortisone 0.5% cream topical twice a day Triamcinolone topical twice a day Treatments 1. The patient is admitted to the inpatient unit and will be provided a safe and secure environment. 2. The patient is denying current active suicidality and is not in need of a one-to-one at this time. 3. The patient is encouraged to participate with group and milieu activities. 4. The patient will be seen by the treatment team on a daily basis to assess symptoms, side effects and response to treatment. 5. Combine as needed hydroxyzine and diphenhydramine and use hydroxyzine 50 mg every 6 hours as needed for anxiety, agitation, and itching. 6. Check lithium level on 06/29/16. 7. Patient is currently on any 90 day more restrictive order and has been placed on [facility] list. Gunner Palacios MD June 29, 2016 15:24
[2016-06-30] MEDS: Mineral Oil-Petr Hydrophillic 50 Gm Ointment TOPICAL SCH ×3 (08:50→20:09)
--- NOTE | 2016-06-30 12:00 | PCM.PNPSY ---
Subjective Date of Service June 30, 2016 Subjective I spent 30 minutes both reviewing treatment plan with clinical team, interviewing the patient and providing supportive/educational psychotherapy. I spent less than 50% of the time counseling the patient as the patient could only tolerate a brief interaction before becoming irrational, and demanding immediate discharge. I repeat this ritual on a daily basis with Breanna. I attempted to review the treatment plan with the patient and discussed options available but she was having nothing of it. Breanna reports a resolution of symptoms and that she is ready for discharge immediately. Staff reports that she has been generally confused, but is able to attend to activities of daily living. She slept for 6.5 hours and although she denies carlton or psychotic symptoms review both staff and I are observing her to be disorganized in thought and to have severe distractibility. Her frequency of responding to internal stimuli (she calls this the Lord's line), and showing poor impulse has decreased. She denies medication side effects. Current Medications Current Medications Furosemide 10 mg DAILY PO Last administered on 06/30/16t 08:48; Admin Dose 10 MG ; Start 06/29/16 at 13:05 Mental Status Exam Appearance: Neat/well groomed Attitude: Cooperative, Guarded Behavior: Overtly anxious, Distractible Affect: Labile Mood: Dysthymic, Anxious Thought Process/Associations: Goal Directed, Circumstantial Speech Production: Normal Speech Rate: Normal Speech Articulation: Normal Thought Content: Somatic preoccupation, Perseveration Danger to Self/Suicidal Ideati: None Danger to Others: None Delusions: Paranoid (Endorses) Hallucinations: Auditory (Endorses), Visual (Denies) Consciousness: Alert Orientation: Person, Place, Situation (aware of hospitalization and now states she does not need MRO and should be discharged as others are sicker than she) Memory: Short Term Memory (Impaired) Estimate Intellectual Function: Average Basis for IQ estimate: Awareness current events, Word use/vocabulary, Educational history, Employment history Attention/Concentration & Cogn: Impaired Insight: Limited Judgement: Limited Mental Health Plan The patient is a 71-year-old female who developed altered mental status for several days prior to admission. She remains in an acute manic state with significant disorganization of thought , poor judgment, poor insight and poor impulse control. She had significant memory impairment prior to admission and this was exacerbated by her carlton . Breanna is beginning to move out of the manic stage of bipolar mood disorder. Her neurocognitive impairments are now Her main issue is poor memory and the frustration and irritability that result from not being able to effectively advocate for her needs. She is highly sensitive to medications and it has been difficult to adjust medications to target carlton because she tends to get toxic and have significant side effects. As a result we are having to go very slowly with both medications. We will continue to attempt to engage Breanna in a therapeutic alliance as well as encourage taking her medications as prescribed. She continues to make gradual and steady improvement over the past week. I believe this is due to finally been able to sleep. [place] AXIS I: 1. Bipolar disorder, current episode, mixed with psychotic features. 2. Major neurocognitive disorder, unspecified, likely vascular type. AXIS II: Deferred. AXIS III: Urinary tract infection resolved. See past medical history. AXIS IV: Moderate. AXIS V: Global Assessment of Functioning 30. Medications Clonazepam 0.5 mg twice daily Diphenhydramine 25 mg by mouth every 6 hours when necessary itching Hydroxyzine 25 mg by mouth every 4 hours when necessary anxiety agitation or itching Hydroxyzine pamoate 50 mg nightly [place] carbonate 300 mg twice daily Quetiapine 25 mg at 8 AM and 1430 Quetiapine 150 mg nightly Quetiapine 25 mg by mouth twice a day when necessary psychosis or severe agitation Ziprasidone 20 mg twice a day IM when necessary for refused quetiapine Ciprofloxacin 125 mg daily Famotidine 20 mg daily Furosemide 10 mg daily Hydrochlorothiazide 12.5 mg daily Hydrocortisone 0.5% cream topical twice a day Triamcinolone topical twice a day Treatments 1. The patient is admitted to the inpatient unit and will be provided a safe and secure environment. 2. The patient is denying current active suicidality and is not in need of a one-to-one at this time. 3. The patient is encouraged to participate with group and milieu activities. 4. The patient will be seen by the treatment team on a daily basis to assess symptoms, side effects and response to treatment. 5. Combine as needed hydroxyzine and diphenhydramine and use hydroxyzine 50 mg every 6 hours as needed for anxiety, agitation, and itching. 6. Check lithium level on 06/29/16 = .6 7. Patient is currently on any 90 day more restrictive order and has been placed on [facility] list. Gunner Palacios MD June 30, 2016 12:00
[2016-06-30 15:26] VITALS: BP 130/79; PULSE 77; RESP 19
[2016-07-01] MEDS: Mineral Oil-Petr Hydrophillic 50 Gm Ointment TOPICAL SCH ×3 (09:15→21:16)
--- NOTE | 2016-07-01 09:21 | DRSVH ---
PROCEDURE: X-RAY LEFT FOOT COMPLETE, MINIMUM THREE VIEWS ([id number]) INDICATIONS: RED SWOLLEN TOE ON LEFT FOOT APPEARS TO BE INFECTE TECHNIQUE: 3 views of the foot were acquired. COMPARISON: None. FINDINGS: Bones: No fractures or dislocations. Second digit hammertoe. No suspicious bony lesions. Mild fir st MTP and diffuse interphalangeal joint narrowing with mild periarticular osteophyte formation. Soft tissues: No tibiotalar joint effusion. Achilles tendon appears normal. Second digit swelling. IMPRESSION: 1. Although no bony erosions are identified, plain film radiography is relatively insensitive in the acute phases of osteomyelitis and may not demonstrate radiographic changes for 15 days. If acute ost eomyelitis is of clinical concern, nuclear medicine regional bone scan or MRI is recommended. 2. Second digit hammertoe and mild osteoarthritic changes. Dictated by: Jimmy EL Interpreted: Nivia Enamorado MD on 07/01/2016 at 9:19 Transcribed by: [email or web address] on 07/01/2016 at 9:20 Approved by: Nivia Enamorado M.D. on 07/01/2016 at 17:41
[2016-07-01 10:47] VITALS: BP 111/67; PULSE 69; RESP 16
--- NOTE | 2016-07-01 13:31 | PCM.CHPPOD ---
Subjective Date of service July 01, 2016 History of Present Illness 71-year-old female currently in the mental health unit is seen the request of Dr. Palacios her psychiatrist regarding chronically inflamed and swollen second digit of the left foot. Patient denies history of trauma, does note some discomfort in the toe. Patient is ambulatory without antalgia. Elicitation of past medical history through the patient difficult due to her cognitive status. According to Dr. Palacios the toe has been red and swollen in the past month or so, patient been on Cipro for urinary tract infection. Reason for Consultation Swollen and inflamed second digit right foot Allergy Allergies: Coded Allergies: chlorpromazine (Verified Allergy, Severe, 02/07/16) codeine (Verified Allergy, Severe, 02/07/16) olanzapine (Verified Allergy, Severe, 02/07/16) sulindac (Verified Allergy, Severe, Rash, 02/07/16) Medications Amlodipine (Amlodipine) 5 Mg Tablet 2.5 MG PO DAILY [place] Carbonate ([place] Carbonate XR) 450 Mg Tablet.er 450 MG PO HS Omeprazole (Omeprazole) 40 Mg Capsule.dr 40 MG PO QAM Quetiapine Fumarate (Quetiapine Fumarate) 100 Mg Tablet 150 MG PO HS Past Medical History Surgeries: No Medical History: Surgical History: Social History Hx Alcohol Use: No Hx Substance Use: No Hx Tobacco Use: No Smoking Status: Never Smoker Podiatry Consult Exam Vital Signs Vital Sign - Last Date Time Temp Pulse Resp B/P Pulse Ox O2 Delivery O2 Flow Rate FiO2 07/01/16 10:47 36.2 69 16 111/67 Lab Test 04/27/16 15:44 05/03/16 15:11 06/07/16 09:16 06/13/16 18:00 Lactic Acid Level 1.5mmol/L (0.4-2.0) Thyroid Stimulating Hormone (TSH) 3.090uIU/mL (0.450-4.500) Hold Yen Top Tube Received (Received) Alcohol, Quantitative < 10mg/dL (0-10) Ammonia < 17.0ug/dL (18-53) BUN/Creatinine Ratio 25.47 (7-24) Urine Color Yellow (YELLOW) Urine Appearance Clear (CLEAR,HAZY) Urine pH 6.0 (5.0-8.0) Urine Specific [place]z 1.010 (1.003-1.035) Urine Protein Negativemg/dL (NEG,TRACE) Urine Glucose (UA) Negativemg/dL (NEGATIVE) Urine Ketones Negativemg/dL (NEGATIVE) Urine Occult Blood Negative (NEGATIVE) Urine Nitrite Negative (NEGATIVE) Urine Bilirubin Negative (NEGATIVE) Urine Urobilinogen Normalmg/dL (NORMAL) Urine Leukocyte Esterase Negative (NEGATIVE) Urine RBC 0-2/hpf (0-2) Urine WBC 0-5/hpf (0-5) Urine Epithelial Cells None/hpf (NONE-MOD) Urine Crystals None seen (NONE SEEN) Urine Bacteria None/hpf (NONE-FEW) Urine Hyaline Casts None/lpf (NONE) Urine Granular Casts None seen (NONE SEEN) Urine Waxy Casts None seen (NONE SEEN) Urine Red Blood Cell Casts None seen (NONE SEEN) Urine White Blood Cell Casts None seen (NONE SEEN) Urine Mucus None seen (None Seen) Urine Trichomonas None seen (NONE SEEN) Urine Yeast None (NONE SEEN) Urinalysis Comment None Urine Culture Reflexed Not indicated Test 06/23/16 07:55 06/29/16 09:30 White Blood Count 6.4th/mm3 (3.8-10.1) Red Blood Count 3.81mil/mm3 (3.90-5.20) Hemoglobin 11.3g/dL (12.0-15.6) Hematocrit 36.9% (35.0-46.0) Mean Corpuscular Volume 96.9fL (81-100) Mean Corpuscular Hemoglobin 29.7pg (27.0-35.0) Mean Corpuscular Hemoglobin Concent 30.6% (32.0-37.0) Red Cell Distribution Width 13.8% (12.3-15.4) Platelet Count 243bil/L (150-400) Neutrophils (%) (Auto) 67.5% (40-74) Lymphocytes (%) (Auto) 18.0% (14-46) Monocytes (%) (Auto) 10.0% (4-12) Eosinophils (%) (Auto) 4.2% (0-5) Basophils (%) (Auto) 0.3% (0-3) Sodium Level 139mEq/L (134-144) Potassium Level 4.0mEq/L (3.5-5.2) Chloride Level 102mEq/L (97-108) Carbon Dioxide Level 25mmol/L (18-29) Blood Urea Nitrogen 26mg/dL (8-27) Creatinine 1.04mg/dL (0.57-1.00) Estimat Glomerular Filtration Rate 75mL/min (>59) Glucose Level 96mg/dL (60-99) Calcium Level 9.6mg/dL (8.5-10.1) Total Bilirubin 0.3mg/dL (0.0-1.2) Aspartate Amino Transf (AST/SGOT) 19U/L (0-50) Alanine Aminotransferase (ALT/SGPT) 19U/L (0-32) Alkaline Phosphatase 73U/L (25-165) Total Protein 7.1g/dL (6.4-8.4) Albumin 4.4g/dL (3.4-5.0) [place] Level 0.6mEq/L (0.5-1.5) Diagnostics X-ray shows diffuse osteopenia, pre-subluxation/subluxation syndrome of the second metatarsal phalangeal joint with dorsal contracture of the digit, which is edematous but I discern no significant bony erosions or evidence of osteomyelitis. Age-related osteoarthritic changes evident, no fractures seen Exam General: Moderate Distress Lower Extremity Pulses: Palpable: Left Dorsalis Pedis Left Posterior Tibal Right Dorsalis Pedis Right Posterior Tibal Podiatry WOUND : Wound Location/Description Patient is a fairly agitated, somewhat angry female of normal body habitus. She did allow me to examine the foot but would not allow any further treatment. She also would not allow any modification of shoes to avoid pressure on the deformed toe. Exam shows good lower exudative perfusion with DP and PT pulses +2 over 4 brisk cap refill., Cursory sensory exam shows patient to be sensate bilaterally. The pedal skin is intact and shows normal hydration for age. Second digit left foot is diffusely edematous and with subacute erythema which does uzma slightly with elevation of the forefoot. There is a 1 x 1 cm dry keratotic plaque on the dorsal PIPJ which I was unable to investigate further for underlying ulceration given patient's level of in cooperation and refusal to consent to this. Of the toe appears to be chronically erythematous although not acutely cellulitic and is somewhat flail at the second metatarsophalangeal joint with bunion deformity causing partial under riding of the hallux and dorsal elevation of the second toe creating dorsal point pressure and subsequent lesion with concern for underlying ulceration. Assessment & Plan Assessment Hyperkeratotic lesion with possible underlying ulcer and subluxation syndrome second metatarsal phalangeal joint with hammertoe second digit left foot. Patient's cognitive state did not allow for further debridement for underlying ulceration. Problems: Plan Ideally would have been able to sharply debrided the hyperkeratotic lesion to assess for overlying ulcer and initiate local wound care measures as indicated however this was not possible and patient is being transferred to [facility] tomorrow according to the staff therefore they will have to monitor the toe, initiate appropriate pressure relief measures and treat for infection should it a send. Although not radiographically evident there is concern given chronic dorsal ulceration for development of osteomyelitis. Patient's shoes appear to be reasonably expansile and voluminous, however cutting the shoe or creating an aperture overlying the deformed toe would be of benefit but patient did not consent to this. I did advise the staff to contact the podiatry department if patient's transfer plans change and the condition of the toe worsens. Marcus Lynch DPM July 01, 2016 13:31
--- NOTE | 2016-07-01 14:08 | PCM.PNPSY ---
Subjective Date of Service July 01, 2016 Subjective I spent 30 minutes both reviewing treatment plan with clinical team, interviewing the patient and providing supportive/educational psychotherapy. I spent less than 50% of the time counseling the patient as the patient could only tolerate a brief interaction before becoming irrational, and demanding immediate discharge. I repeat this ritual on a daily basis with Breanna. I attempted to review the treatment plan with the patient and discussed options available but she was having nothing of it. Breanna reports a resolution of symptoms and that she is ready for discharge immediately. Staff reports that she has been generally confused, but is able to attend to activities of daily living. She slept for 7 hours and although she denies carlton or psychotic symptoms review both staff and I are observing her to be disorganized in thought and to have severe distractibility. Her frequency of responding to internal stimuli (she calls this the Lord's line), and showing poor impulse has decreased. She denies medication side effects. Mental Status Exam Vital Signs Vital Signs Date Time Temp Pulse Resp B/P Pulse Ox O2 Delivery O2 Flow Rate FiO2 07/01/16 10:47 36.2 69 16 111/67 Appearance: Neat/well groomed Attitude: Cooperative, Guarded Behavior: Overtly anxious, Distractible Affect: Labile Mood: Dysthymic, Anxious Thought Process/Associations: Goal Directed, Circumstantial Speech Production: Normal Speech Rate: Normal Speech Articulation: Normal Thought Content: Somatic preoccupation, Perseveration Danger to Self/Suicidal Ideati: None Danger to Others: None Delusions: Paranoid (Endorses) Hallucinations: Auditory (Endorses), Visual (Denies) Consciousness: Alert Orientation: Person, Place, Situation (aware of hospitalization and now states she does not need MRO and should be discharged as others are sicker than she) Memory: Short Term Memory (Impaired) Estimate Intellectual Function: Average Basis for IQ estimate: Awareness current events, Word use/vocabulary, Educational history, Employment history Attention/Concentration & Cogn: Impaired Insight: Limited Judgement: Limited Mental Health Plan The patient is a 71-year-old female who developed altered mental status for several days prior to admission. She remains in an acute manic state with significant disorganization of thought , poor judgment, poor insight and poor impulse control. She had significant memory impairment prior to admission and this was exacerbated by her carlton . Breanna is beginning to move out of the manic stage of bipolar mood disorder. Her neurocognitive impairments are now Her main issue is poor memory and the frustration and irritability that result from not being able to effectively advocate for her needs. She is highly sensitive to medications and it has been difficult to adjust medications to target carlton because she tends to get toxic and have significant side effects. As a result we are having to go very slowly with both medications. We will continue to attempt to engage Breanna in a therapeutic alliance as well as encourage taking her medications as prescribed. She continues to make gradual and steady improvement over the past week. I believe this is due to finally been able to sleep. We received note that she has a [facility] on 07/02/2016. I will write for transfer orders tonight. [place] AXIS I: 1. Bipolar disorder, current episode, mixed with psychotic features. 2. Major neurocognitive disorder, unspecified, likely vascular type. AXIS II: Deferred. AXIS III: Urinary tract infection resolved. See past medical history. AXIS IV: Moderate. AXIS V: Global Assessment of Functioning 30. Medications Clonazepam 0.5 mg twice daily Diphenhydramine 25 mg by mouth every 6 hours when necessary itching Hydroxyzine 25 mg by mouth every 4 hours when necessary anxiety agitation or itching Hydroxyzine pamoate 50 mg nightly Thom[place]ons carbonate 300 mg twice daily Quetiapine 25 mg at 8 AM and 1430 Quetiapine 150 mg nightly Quetiapine 25 mg by mouth twice a day when necessary psychosis or severe agitation Ziprasidone 20 mg twice a day IM when necessary for refused quetiapine Ciprofloxacin 125 mg daily Famotidine 20 mg daily Furosemide 10 mg daily Hydrochlorothiazide 12.5 mg daily Hydrocortisone 0.5% cream topical twice a day Triamcinolone topical twice a day Treatments 1. The patient is admitted to the inpatient unit and will be provided a safe and secure environment. 2. The patient is denying current active suicidality and is not in need of a one-to-one at this time. 3. The patient is encouraged to participate with group and milieu activities. 4. The patient will be seen by the treatment team on a daily basis to assess symptoms, side effects and response to treatment. 5. Combine as needed hydroxyzine and diphenhydramine and use hydroxyzine 50 mg every 6 hours as needed for anxiety, agitation, and itching. 6. Check lithium level on 06/29/16 = .6 7. Patient is currently on any 90 day more restrictive order and will be transferred to [facility] 07/02/2016. Gunner Palacios MD July 01, 2016 14:08
[2016-07-01] MEDS ORDERED: AMLO5TAB2 PO (14:13)
[2016-07-01] MEDS ORDERED: HYD5C TOPICAL (14:13)
[2016-07-01] MEDS ORDERED: HYDR50CA3 PO (14:13)
[2016-07-01] MEDS ORDERED: TRIA80OI TOPICAL (14:13)
[2016-07-01] MEDS ORDERED: QUET100T69 PO (14:13)
[2016-07-01] MEDS ORDERED: MINE105O TOPICAL (14:13)
[2016-07-01] MEDS ORDERED: FUR20 PO (14:13)
[2016-07-01] MEDS ORDERED: QUET25TA73 PO (14:13)
[2016-07-01] MEDS ORDERED: OMEP40CA36 PO (14:13)
[2016-07-01] MEDS ORDERED: LIT150 PO ×2 (14:13)
[2016-07-01] MEDS ORDERED: FAMO20T PO (14:13)
[2016-07-01] MEDS ORDERED: KLO5T PO (14:13)
[2016-07-01] MEDS ORDERED: HYDR25TA4 PO (14:13)
[2016-07-01] MEDS ORDERED: CIPR-232 PO (14:13)
--- NOTE | 2016-07-01 14:24 | PCM.DIMED ---
Discharge Instructions Date of Service July 01, 2016 Dates of Hospitalization Apr 28, 2016 at 00:07 Discharge Diagnosis Discharge Diagnosis AXIS I: 1. Bipolar disorder, current episode, mixed with psychotic features. 2. Major neurocognitive disorder, unspecified, likely vascular type. AXIS II: Deferred. AXIS III: Urinary tract infection resolved Hyperkeratotic lesion with possible underlying ulcer and subluxation syndrome second metatarsal phalangeal joint with hammertoe second digit left foot AXIS IV: Moderate. AXIS V: Global Assessment of Functioning 30. Medication Instructions Hyperkeratotic lesion with possible underlying ulcer and subluxation syndrome second metatarsal phalangeal joint with hammertoe second digit left foot 1 Ideally would have been able to sharply debrided the hyperkeratotic lesion to assess for overlying ulcer and initiate local wound care measures 2 initiate appropriate pressure relief measures 3 no radiographically injury evident but there is concern given chronic dorsal ulceration for development of osteomyelitis 4 Patient's shoes appear to be reasonably expansile and voluminous, however cutting the shoe or creating an aperture overlying the deformed toe would be of benefit Diet No restrictions Activity Other (patient requiring inpatient psychiatric care) Call your provider Fever or Chills Patient Instructions Patient to be transferred to [facility] in the morning. Recommend client continue current medications. Patient's ciprofloxacin should be continued for the next week. Follow-up plan Transfer to [facility] in the morning for long-term inpatient care Gunner Palacios MD July 01, 2016 14:24
[2016-07-01] MEDS: Alum-Mag Hydrox-Simeth 30 mL Suspension PO PRN (21:42)
[2016-07-02] MEDS: Mineral Oil-Petr Hydrophillic 50 Gm Ointment TOPICAL SCH (07:00)
[2016-07-02 07:49] VITALS: BP 118/68; PULSE 70; RESP 14
--- NOTE | 2016-07-02 16:21 | DIS ---
[address] [address] TRANSFER SUMMARY PATIENT: UMA MARTÍNEZ : 1945 MR#: [id number] ADMIT: 04/28/2016 JOB ID: [id number] TRANSFER TO [facility]: 07/02/2016 IDENTIFICATION: The patient is a 71-year-old white female, well known to the [facility] staff. She has been struggling with bipolar disorder with both carlton, depression and psychosis over the past 30 years. 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 REASON FOR ADMISSION: Client had a four day period of not sleeping with worsening symptoms of carlton and psychosis. SUMMARY OF PRESENT ILLNESS: The patient is a 71-year-old white female who struggled with severe bipolar mood disorder with both depression, carlton and psychosis at different times. She has been admitted to our unit on multiple occasions. Prior to admission, she had poor sleep, and had a significant carlton with psychosis. The patient also has a positive family history of Alzheimer disease, and over the past 10 years the staff here has noted a progressive neurocognitive disorder as well as her regular psychiatric illnesses. She was admitted for stabilization and care. HOSPITAL COURSE: The client was admitted to our unit, was provided with a high degree of safety through the structure and active adult engagement she received here. We had her participate in one-to-one unit and group activities focused on improving coping skills, impulse control and reality based thinking. She showed a very slow response to the structure and to the medications. She tended to have multiple side effects to relatively low doses of neuroleptics and mood stabilizers. As a result, we had to go very slow and at low doses with most of her medications. She was eventually stabilized on a combination of Klonopin 0.5 b.i.d., lithium 300 b.i.d., Seroquel 25 b.i.d. and 150 mg h.s. With the structure and frequent redirection and medications, we were able to significantly decrease psychotic symptoms as well as improve her mood stability. She was approved for a 90 day most restrictive alternative. A bed came up at [facility] and she will be transferred there today. The client did have both a urinary tract infection on admission, and is on 125 mg p.o. daily of Cipro. I will continue this for another 14 days before discontinuing and then frequently recheck for potential urinary tract infections. Client is prone to these and when she does have urinary tract infections she tends to become psychotic. MENTAL STATUS EXAMINATION: Client neatly dressed. With some staff she is pleasant and cooperative. With this MD because she wants to go home, she frequently escalates becoming defiant, oppositional and hostile. She has never taken a swing at me and did not posture in any type of aggressive manner. Her mood with me is dysphoric. Affect congruent with high intensity. Thought process: Client unable to relate a coherent history due to part psychosis and part dementia. She does appear to be responding to internal stimuli. However, she is able to appreciate simple abstractions. Thought content significant for themes of injustice and persecution. She has frequent delusions believing the she talks directly to God on quotes "the Lord's line." She also talks to several other providers with this magical Lord's line. Denied suicidal ideation. Appears to be actively responding to internal stimuli. Client oriented to place and date with frequent date coaching. Memory is markedly impaired. Attention and concentration markedly impaired. Insight and judgment very poor. Impulse control impaired. Reality testing markedly impaired. Competence to handle current stressors is currently being overwhelmed. DISCHARGE DIAGNOSIS: AXIS I 1. Bipolar mood disorder, current episode manic with psychotic features. 2. Major neurocognitive disorder, unspecified, likely vascular. AXIS II Deferred. AXIS III 1. Urinary tract infection resolving. 2. Hyperkeratotic lesion with possible underlying ulcer 2nd metatarsophalangeal joint with hammertoe 2nd digit left foot. Recommended treatment. Ideally the patient would have hyperkeratotic lesion debrided to assess underlying ulcer. In the meantime, would initiate local care wound measures. Would also recommend client cutting her shoe and creating an aperture overlying the deformed toe. AXIS IV Moderate. AXIS V Current global assessment of functioning equal to 30. MEDICATIONS: 1. Klonopin 0.5 twice a day. 2. [place] 300 twice a day. 3. Seroquel 25 mg twice a day. 4. Seroquel 150 h.s. 5. Ciprofloxacin 125 mg daily for 10 days, then discontinue. 6. Lasix 10 mg daily. 7. Hydrochlorothiazide 12.5 mg daily. 8. Hydrocortisone 0.5% cream topical twice daily. 9. Triamcinolone topical twice a day. ACTIVITY AND DIET: Client is requiring an inpatient locked unit to maintain safety and continued treatment. CONDITION ON DISCHARGE: Fair. PROGNOSIS: Guarded due to the combination of psychosis, carlton and a neurocognitive disorder. DISPOSITION: Transfer to [facility].
== END 2016-07-02 09:35 | DRG 885 ==
LOC: SED 14:59 → MHC 04-28 00:07
PROVIDERS: ADMIT Nurse Practitioner Psychiatric/Mental Health; ATTEND Psychiatry & Neurology Psychiatry
DX: F31.64 Bipolar disorder, current episode mixed, severe, with psychotic features (principal); F01.51 Vascular dementia, unspecified severity, with behavioral disturbance; N39.0 Urinary tract infection, site not specified; N17.9 Acute kidney failure, unspecified; I10 Essential (primary) hypertension; K21.9 Gastro-esophageal reflux disease without esophagitis; L27.1 Localized skin eruption due to drugs and medicaments taken internally; T43.595A Adverse effect of other antipsychotics and neuroleptics, initial encounter; R60.9 Edema, unspecified; M20.42 Other hammer toe(s) (acquired), left foot; L89.890 Pressure ulcer of other site, unstageable